=== PATIENT | male | born 1940 ===

== ENCOUNTER 2017-11-08 12:04 | Inpatient (IN) | payer MEDICARE, MEDICAID ==
--- NOTE | 2017-11-08 13:10 | C.PDOC ---
History Of Present Illness 77 year old male with a history of hypertension, diabetes, and end-stage renal disease presents to the emergency department status-post taking a fall and landing on his right knee and right side. Patient denies hitting his head or LOC. Patient reports he uses a walker at home for frequent falls. He was assisted off of the ground by his son. Patient is unable to bear weight on his right leg, complaining of pain from his hip down to his knee. Patient's last dialysis was on Friday. - HPI Time Seen by Provider: 11/08/17 12:24 Chief Complaint (Nursing): Trauma History Per: Patient History/Exam Limitations: no limitations Onset/Duration Of Symptoms: Hrs Location Of Injury: Right: Hip, Knee, Leg Past Medical History Reviewed: Historical Data, Nursing Documentation, Vital Signs Vital Signs: Last Vital Signs Temp 98.2 F 11/09/17 07:05 Pulse 80 11/09/17 07:05 Resp 20 11/09/17 07:05 BP 155/68 H 11/09/17 07:05 Pulse Ox 98 11/09/17 10:44 - Medical History PMH: Anemia, Arthritis, Dementia, HTN Other PMH: ESRD Surgical History: No Surg Hx Family History: States: No Known Family Hx - Social History Hx Alcohol Use: No Hx Substance Use: No - Immunization History Hx Tetanus Toxoid Vaccination: No Hx Influenza Vaccination: No Hx Pneumococcal Vaccination: No Review Of Systems Musculoskeletal: Positive for: Leg Pain (right knee), Other (right hip pain) Physical Exam - Physical Exam Appears: Non-toxic, No Acute Distress Skin: No Rash Head: Atraumatic, Normacephalic Eye(s): bilateral: Normal Inspection, PERRL, EOMI Oral Mucosa: Moist Chest: No Tenderness Cardiovascular: Rhythm Regular, No Murmur Respiratory: Normal Breath Sounds (CTA bilaterally), No Rales, No Rhonchi, No Wheezing Gastrointestinal/Abdominal: Soft, No Tenderness Extremity: Tenderness (at right hip), No Swelling, Other (right lower extremity is forshortened and externally rotated. dialysis access port located at the left distal forearm. ) Extremity: Left: Normal ROM, Right: Limited ROM To Joint (due to pain) Pulses: Left Dorsalis Pedis: Normal, Right Dorsalis Pedis: Normal Neurological/Psych: Oriented x3, Normal Speech, Normal Cognition ED Course And Treatment - Laboratory Results Result Diagrams: 11/08/17 14:14 11/08/17 14:14 ECG: Interpreted By Me, Viewed By Me ECG Rhythm: Sinus Rhythm (66bpm), 1st Degree HB, ST/T Changes (T wave abnormality, consider lateral ischemia) ECG Interpretation: Abnormal Interpretation Of ECG: Sinus rhythm at 66bpm with 1st degree AV block. Left axis deviation. Anteroseptal infarct. T wave abnormalities, consider lateral ischemia. Abnormal EKG. O2 Sat by Pulse Oximetry: 98 (RA) Pulse Ox Interpretation: Normal - Other Rad CXR X-Ray: Viewed By Me, Read By Radiologist Interpretation: FINDINGS: LUNGS: Prominent interstitial markings are appreciate diffusely bilaterally most likely reflecting chronic interstitial pulmonary disease. Acute interstitial infiltrate is not completely excluded. Further clinical correlation is recommended. PLEURA: No pneumothorax or pleural fluid seen. CARDIOVASCULAR: Normal. OSSEOUS STRUCTURES: No significant abnormalities. VISUALIZED UPPER ABDOMEN: Normal. OTHER FINDINGS: None. IMPRESSION: Likely chronic interstitial pulmonary disease although an acute interstitial process is not completely excluded. XR Femur X-Ray: Viewed By Me, Read By Radiologist Interpretation: HISTORY: prox femur pain ds/p fall. COMPARISON: None. TECHNIQUE: AP and Lateral Radiographs of the right femur. FINDINGS: FEMUR: Proximal right femoral fracture is identified somewhat comminuted and intertrochanteric in location described greater detail in a separate right hip radiograph also performed 11/08/2017. Please see separate report. The distal femur are intact without fracture. SOFT TISSUES: Vascular calcifications noted. OTHER FINDINGS: None. IMPRESSION: Intertrochanteric fracture comminuted proximal right femur. XR Knee X-Ray: Viewed By Me, Read By Radiologist Interpretation: HISTORY: fall onto knee pain. COMPARISON: None. FINDINGS: BONES: No acute fracture or destructive bony lesion identified. JOINTS: Mild joint space narrowing at the medial femorotibial and patellofemoral compartments indicates chondromalacia and degenerative joint change. No significant osteophyte development or cortical sclerosis however. JOINT EFFUSION: None. OTHER FINDINGS: None. IMPRESSION: Limited degenerative joint disease. No acute fracture or dislocation identified. Extensive vascular calcifications are identified in the posterior knee and thigh soft tissues as well as the medial calf. XR Hip/Pelvis X-Ray: Viewed By Me, Read By Radiologist Interpretation: HISTORY: s/p fall, foreshortened and rotated leg. COMPARISON: None. FINDINGS: BONES: Intertrochanteric fracture of the proximal right femur is appreciated with varus angulation of the fracture site. No dislocation apparent. The pelvic ring appears intact nevertheless although diffuse osteopenia suggests osteoporosis not only at the right hip but also throughout the pelvic ring. degenerative changes are moderate to severe at the bilateral sacroiliac and hip joints. Vascular calcifications are quite extensive at the region of the iliofemoral distribution up to the visualize mid thigh regions bilaterally. Pubic symphysis is intact. JOINTS: As above. SOFT TISSUES: As above. OTHER FINDINGS: None. IMPRESSION: Intertrochanteric fracture right femur with varus angulation. No dislocation. No fracture of the pelvic ring. Diffuse osteopenia suggests osteoporosis. Progress Note: Plan: XR Knee 3 Views. Tylenol 650mg PO. XR Femur 2 Views. XR Hip 2 Views Medical Decision Making Medical Decision Making: discussed with Dr London Fox, will admit to his service Disposition Discussed With Dr.: Christy Fox Doctor Will See Patient In The: Hospital - Disposition Disposition: HOSPITALIZED Disposition Time: 14:15 Condition: STABLE - Clinical Impression Clinical Impression: Hip fracture, right, Frequent falls, ESRD (end stage renal disease) on dialysis - PA / [employer] / Resident Statement MD/DO has reviewed & agrees with the documentation as recorded. - Scribe Statement The provider has reviewed the documentation as recorded by the Scribe (Nicolás Nguyen) All medical record entries made by the Scribe were at my direction and personally dictated by me. I have reviewed the chart and agree that the record accurately reflects my personal performance of the history, physical exam, medical decision making, and the department course for this patient. I have also personally directed, reviewed, and agree with the discharge instructions and disposition.
[2017-11-08 14:23] LABS: BASO # 0.1 K/uL (0.0-0.2); BASO % 0.9 % (0.0-2.0); EOS # 0.3 K/uL (0.0-0.7); EOS % 2.1 % (0.0-4.0); HEMOGLOBIN 12.3 g/dL (12.0-18.0); LYMPH # 2.9 K/uL (1.0-4.3); LYMPH % 24.2 % (20.0-40.0); MEAN CELL VOLUME 94.5 fL (80.0-94.0); MEAN CORPUSCULAR HEMOGLOBIN 31.9 pg (27.0-31.0); MEAN CORPUSCULAR HGB CONC 33.7 g/dL (33.0-37.0); MEAN PLATELET VOLUME 7.8 fL (7.2-11.7); MONO # 0.7 K/uL (0.0-0.8); MONO % 6.2 % (0.0-10.0); NEUT # 7.9 K/uL (1.8-7.0); NEUT % 66.6 % (50.0-75.0); RBC 3.85 Mil/uL (4.40-5.90); RED CELL DISTRIBUTION WIDTH 16.4 % (11.5-14.5); WHITE BLOOD COUNT 11.9 K/uL (4.8-10.8)
[2017-11-08 14:34] LABS: INR 1.1; PROTHROMBIN TIME 11.8 SECONDS (9.7-12.2)
[2017-11-08 14:41] LABS: ALB/GLOB RATIO 0.9 (1.0-2.1); ALBUMIN 3.6 g/dL (3.5-5.0); CALCIUM 8.7 mg/dl (8.6-10.4)
[2017-11-08] MEDS ORDERED: Oxycodone/Acetaminophen 5/325 mg Tab PO STA ×2 (15:35→15:37)
[2017-11-08] MEDS ORDERED: Oxycodone/Acetaminophen 5/325 mg Tab ONE (15:39)
--- NOTE | 2017-11-08 15:49 | CP.PCM.HP ---
Past Patient History - Past Social History Smoking Status: Never Smoked - CARDIAC Hx Hypertension: Yes - PULMONARY Hx Respiratory Disorders: No - NEUROLOGICAL Hx Dementia: Yes - RENAL Hx Dialysis: Yes Type of Dialysis Access: left fistual Date of Last Dialysis Treatment: 11/07/17 - ENDOCRINE/METABOLIC Hx Diabetes Mellitus Type 1: Yes - HEMATOLOGICAL/ONCOLOGICAL Hx Anemia: Yes - MUSCULOSKELETAL/RHEUMATOLOGICAL Hx Arthritis: Yes - PSYCHIATRIC Hx Substance Use: No - SURGICAL HISTORY Hx Surgeries: Yes Hx Cardiac Catheterization: Yes (2004) - ANESTHESIA Hx Anesthesia: Yes Hx Anesthesia Reactions: No Hx Malignant Hyperthermia: No Meds Allergies/Adverse Reactions: Allergies Allergy/AdvReac Type Severity Reaction Status Date / Time No Known Allergies Allergy Unverified 11/08/17 12:24 Physical Exam - Constitutional Appears: Well - Head Exam Head Exam: ATRAUMATIC, NORMAL INSPECTION, NORMOCEPHALIC - Eye Exam Eye Exam: EOMI, Normal appearance, PERRL Pupil Exam: NORMAL ACCOMODATION, PERRL - ENT Exam ENT Exam: Mucous Membranes Moist, Normal Exam - Neck Exam Neck exam: Positive for: Normal Inspection - Respiratory Exam Respiratory Exam: Decreased Breath Sounds - Cardiovascular Exam Cardiovascular Exam: REGULAR RHYTHM, +S1, +S2 - GI/Abdominal Exam GI & Abdominal Exam: Diminished Bowel Sounds, Soft - Rectal Exam Rectal Exam: Deferred Results - Vital Signs Recent Vital Signs: Last Vital Signs Temp 98 F 11/08/17 12:17 Pulse 78 11/08/17 12:17 Resp 18 11/08/17 12:17 BP 114/50 L 11/08/17 12:17 Pulse Ox 98 11/08/17 14:24 - Labs Result Diagrams: 11/08/17 14:14 11/08/17 14:14 Labs: Laboratory Results - last 24 hr 11/08/17 11/08/17 11/08/17 12:17 14:14 14:14 WBC 11.9 H RBC 3.85 L Hgb 12.3 Hct 36.4 MCV 94.5 H MCH 31.9 H MCHC 33.7 RDW 16.4 H Plt Count 228 MPV 7.8 Neut % (Auto) 66.6 Lymph % (Auto) 24.2 [place] % (Auto) 6.2 Eos % (Auto) 2.1 Baso % (Auto) 0.9 Neut # (Auto) 7.9 H Lymph # (Auto) 2.9 [place] # (Auto) 0.7 Eos # (Auto) 0.3 Baso # (Auto) 0.1 PT 11.8 INR 1.1 APTT 30 Sodium Potassium Chloride Carbon Dioxide Anion Gap BUN Creatinine Est GFR ( Amer) Est GFR (Non-Af Amer) POC Glucose (mg/dL) 228 H Random Glucose Calcium Total Bilirubin AST ALT Alkaline Phosphatase Total Protein Albumin Globulin Albumin/Globulin Ratio 11/08/17 14:14 WBC RBC Hgb Hct MCV MCH MCHC RDW Plt Count MPV Neut % (Auto) Lymph % (Auto) [place] % (Auto) Eos % (Auto) Baso % (Auto) Neut # (Auto) Lymph # (Auto) [place] # (Auto) Eos # (Auto) Baso # (Auto) PT INR APTT Sodium 141 Potassium 3.9 Chloride 95 L Carbon Dioxide 32 H Anion Gap 18 BUN 30 H Creatinine 3.1 H Est GFR ( Amer) 24 Est GFR (Non-Af Amer) 20 POC Glucose (mg/dL) Random Glucose 196 H Calcium 8.7 Total Bilirubin 0.6 AST 21 ALT 13 L Alkaline Phosphatase 106 Total Protein 7.8 Albumin 3.6 Globulin 4.2 H Albumin/Globulin Ratio 0.9 L
--- NOTE | 2017-11-08 17:12 | RAD ---
PROCEDURE: Right Hip with Pelvis Radiographs. HISTORY: s/p fall, foreshortened and rotated leg COMPARISON: None. FINDINGS: BONES: Intertrochanteric fracture of the proximal right femur is appreciated with varus angulation of the fracture site. No dislocation apparent. The pelvic ring appears intact nevertheless although diffuse osteopenia suggests osteoporosis not only at the right hip but also throughout the pelvic ring. degenerative changes are moderate to severe at the bilateral sacroiliac and hip joints. Vascular calcifications are quite extensive at the region of the iliofemoral distribution up to the visualize mid thigh regions bilaterally. Pubic symphysis is intact. JOINTS: As above. SOFT TISSUES: As above. OTHER FINDINGS: None. IMPRESSION: Intertrochanteric fracture right femur with varus angulation. No dislocation. No fracture of the pelvic ring. Diffuse osteopenia suggests osteoporosis.
--- NOTE | 2017-11-08 17:18 | RAD ---
PROCEDURE: Right Knee Radiographs. HISTORY: fall onto knee pain COMPARISON: None. FINDINGS: BONES: No acute fracture or destructive bony lesion identified. JOINTS: Mild joint space narrowing at the medial femorotibial and patellofemoral compartments indicates chondromalacia and degenerative joint change. No significant osteophyte development or cortical sclerosis however. JOINT EFFUSION: None. OTHER FINDINGS: None. IMPRESSION: Limited degenerative joint disease. No acute fracture or dislocation identified. Extensive vascular calcifications are identified in the posterior knee and thigh soft tissues as well as the medial calf.
--- NOTE | 2017-11-08 17:20 | RAD ---
PROCEDURE: Right Femur Radiographs. HISTORY: prox femur pain ds/p fall COMPARISON: None. TECHNIQUE: AP and Lateral Radiographs of the right femur. FINDINGS: FEMUR: Proximal right femoral fracture is identified somewhat comminuted and intertrochanteric in location described greater detail in a separate right hip radiograph also performed 11/08/2017. Please see separate report. The distal femur are intact without fracture. SOFT TISSUES: Vascular calcifications noted. OTHER FINDINGS: None. IMPRESSION: Intertrochanteric fracture comminuted proximal right femur.
--- NOTE | 2017-11-08 17:23 | RAD ---
PROCEDURE: CHEST RADIOGRAPH, 1 VIEW HISTORY: FALL RT HIP COMPARISON: None available. FINDINGS: LUNGS: Prominent interstitial markings are appreciate diffusely bilaterally most likely reflecting chronic interstitial pulmonary disease. Acute interstitial infiltrate is not completely excluded. Further clinical correlation is recommended. PLEURA: No pneumothorax or pleural fluid seen. CARDIOVASCULAR: Normal. OSSEOUS STRUCTURES: No significant abnormalities. VISUALIZED UPPER ABDOMEN: Normal. OTHER FINDINGS: None. IMPRESSION: Likely chronic interstitial pulmonary disease although an acute interstitial process is not completely excluded.
[2017-11-08] MEDS: Morphine 4 MG/ML VIAL IVP PRN (21:30)
[2017-11-08] MEDS: (Lantus) Insulin Glargine, Recombinant SC SCH (22:07)
[2017-11-08] MEDS: (Novolog) Insulin Aspart, Recombinant 100 u/ml 10 ml vial SC SCH (22:08)
[2017-11-09] MEDS ORDERED: (Novolog) Insulin Aspart, Recombinant 100 u/ml 10 ml vial SC STA (00:28)
[2017-11-09] MEDS: (Novolog) Insulin Aspart, Recombinant 100 u/ml 10 ml vial SC SCH ×5 (08:00→21:29)
[2017-11-09] MEDS: Morphine 4 MG/ML VIAL IVP PRN ×2 (08:53→15:50)
[2017-11-09] MEDS ORDERED: Metoprolol Succinate 200 mg XL Tab PO SCH (10:00)
--- NOTE | 2017-11-09 10:00 | CP.PCM.CON ---
History of Present Illness - History of Present Illness History of Present Illness: I was asked to see patient by Dr Fox. Patient is a 77 year old male with PMH HTN, CAD, chronic renal insufficiency, DM who presents with fall. Patient states he tripped and hurt his leg. He was found to have a hip fracture. patient denies chest pain or syncope. Review of Systems - Constitutional Constitutional: absent: As Per HPI, Anorexia, Chills, Daytime Sleepiness, Excessive Sweating, Fatigue, Fever, Frequent Falls, Headache, Increased Appetite , Lethargy, Malaise, Night Sweats, Snoring, Sleep Apnea, Weight Gain, Weight Loss, Weakness, Other - EENT Eyes: absent: As Per HPI, Blind Spots, Blurred Vision, Change in Vision, Decreased Night Vision, Diplopia, Discharge, Dry Eye, Exophthalmos, Floaters, Irritation, Itchy Eyes, Loss of Peripheral Vision, Pain, Photophobia, Requires Corrective Lenses, Sees Flashes, Spots in Vision, Tunnel Vision, Other Visual Disturbances, Loss of Vision, Other Ears: absent: As Per HPI, Decreased Hearing, Ear Discharge, Ear Pain, Tinnitus, Abnormal Hearing, Disequilibrium, Dizziness, Other Nose/Mouth/Throat: absent: As Per HPI, Epistaxis, Nasal Congestion, Nasal Discharge, Nasal Obstruction, Nasal Trauma, Nose Pain, Post Nasal Drip, Sinus Pain, Sinus Pressure, Bleeding Gums, Change in Voice, Dental Pain, Dry Mouth, Dysphagia, Halitosis, Hoarsness, Lip Swelling, Mouth Lesions, Mouth Pain, Odynophagia, Sore Throat, Throat Swelling, Tongue Swelling, Facial Pain, Neck Pain, Neck Mass, Other - Cardiovascular Cardiovascular: absent: As Per HPI, Acrocyanosis, Chest Pain, Chest Pain at Rest , Chest Pain with Activity, Claudication, Diaphoresis, Dyspnea, Dyspnea on Exertion, Edema, Irregular Heart Rhythm, Pain Radiating to Arm/Neck/Jaw, Leg Edema, Leg Ulcers, Lightheadedness, Orthopnea, Palpitations, Paroxysmal Nocturnal Dyspnea, Pedal Edema, Radiating Pain, Rapid Heart Rate, Slow Heart Rate, Syncope, Other - Respiratory Respiratory: absent: As Per HPI, Cough, Dyspnea, Hemoptysis, Dyspnea on Exertion , Wheezing, Snoring, Stridor, Pain on Inspiration, Chest Congestion, Excessive Mucous Production, Change in Mucous Color, Pain with Coughing, Other - Gastrointestinal Gastrointestinal: absent: As Per HPI, Abdominal Pain, Belching, Bloating, Change in Bowel Habits, Change in Stool Character, Coffee Ground Emesis, Constipation, Cramping, Diarrhea, Dyspepsia, Dysphagia, Early Satiety, Excessive Flatus, Fecal Incontinence, Heartburn, Hematemesis, Hematochezia, Loose Stools, Melena, Nausea, Odynophagia, Temesmus, Vomiting, Other - Genitourinary Genitourinary: absent: As Per HPI, Change in Urinary Stream, Difficulty Urinating, Dysuria, Flank Pain, Hematuria, Pyuria, Nocturia, Urinary Incontinence, Urinary Frequency, Urinary Hesitance, Urinary Urgency, Voiding Freq/Small Amts, Freq UTI, Hx Renal/Bladder Calculi, Hx /Renal Surgery, Bladder Distension, Other - Musculoskeletal Musculoskeletal: absent: As Per HPI, Abnormal Gait, Arthralgias, Atrophy, Back Pain, Deformity, Joint Swelling, Limited Range of Motion, Loss of Height, Muscle Cramps, Muscle Weakness, Myalgias, Neck Pain, Numbness, Radiating Pain into Limb, Stiffness, Tingling, Other - Integumentary Integumentary: absent: As Per HPI, Acne, Alopecia, Bleeding Lesions, Change in Hair, Change in Nails, Change in Pigmentation, Changing Lesions, Dry Skin, Erythema, Furuncle, Hirsutism, Lesions, New Lesions, Non-Healing Lesions, Photosensitivity, Pruritus, Rash, Skin Pain, Skin Ulcer, Sores, Striae, Swelling , Unusual Bruising, Wounds, Jaundice, Other - Neurological Neurological: absent: As Per HPI, Abnormal Gait, Abnormal Hearing, Abnormal Movements, Abnormal Speech, Behavioral Changes, Burning Sensations, Confusion, Convulsions, Disequilibrium, Dizziness, Numbness, Focal Weakness, Frequent Falls , Headaches, Lack of Coordination, Loss of Vision, Memory Loss, Paresthesias, Radicular Pain, Restless Legs, Sensory Deficit, Syncope, Tingling, Tremor, Vertigo, Weakness, Other Visual Disturbances, Other - Psychiatric Psychiatric: absent: As Per HPI, Abnormal Sleep Pattern, Anhedonia, Anxiety, Auditory Hallucinations, Behavioral Changes, Change in Appetite, Change in Libido, Confusion, Depression, Difficulty Concentrating, Hallucinations, Homicidal Ideation, Hopelessness, Irritability, Memory Loss, Mood Swings, Panic Attacks, Paranoia, Suicidal Ideation, Visual Hallucinations, Tactile Hallucinations, Other - Endocrine Endocrine: absent: As Per HPI, Change in Body Appearance, Change in Libido, Cold Intolorance, Deepening of Voice, Excessive Sweating, Fatigue, Flushing, Heat Intolorance, Increase in Ring/Shoe/Hat Size, Palpitations, Polydipsia, Polyphagia, Polyuria, Other - Hematologic/Lymphatic Hematologic: absent: As Per HPI, Easy Bleeding, Easy Bruising, Lymphadenopathy, Other Past Patient History - Past Medical History & Family History Past Medical History?: Yes - Past Social History Smoking Status: Never Smoked - CARDIAC Hx Hypertension: Yes - PULMONARY Hx Respiratory Disorders: No - NEUROLOGICAL Hx Dementia: Yes - RENAL Hx Dialysis: Yes Type of Dialysis Access: left fistual Date of Last Dialysis Treatment: 11/07/17 - ENDOCRINE/METABOLIC Hx Diabetes Mellitus Type 1: Yes - HEMATOLOGICAL/ONCOLOGICAL Hx Anemia: Yes - MUSCULOSKELETAL/RHEUMATOLOGICAL Hx Arthritis: Yes Hx Falls: No - GASTROINTESTINAL Hx Gastrointestinal Disorders: No - GENITOURINARY/GYNECOLOGICAL Hx Genitourinary Disorders: No - PSYCHIATRIC Hx Substance Use: No - SURGICAL HISTORY Hx Surgeries: Yes Hx Cardiac Catheterization: Yes (2004) - ANESTHESIA Hx Anesthesia: Yes Hx Anesthesia Reactions: No Hx Malignant Hyperthermia: No Meds Allergies/Adverse Reactions: Allergies Allergy/AdvReac Type Severity Reaction Status Date / Time No Known Allergies Allergy Unverified 11/08/17 12:24 - Medications Medications: Current Medications Divalproex Sodium (Depakote Sprinkles) 125 mg PO DAILY [facility] Donepezil HCl (Aricept) 5 mg PO HS [facility] Last Admin: 11/08/17 21:31 Dose: 5 mg Heparin Sodium (Porcine) (Heparin) 5,000 units SC Q12 [facility] Last Admin: 11/08/17 21:30 Dose: 5,000 units Insulin Aspart (Novolog) 0 unit SC ACHS [facility] PRN Reason: Protocol Last Admin: 11/09/17 08:42 Dose: Not Given Insulin Glargine (Lantus) 8 unit SC HS [facility] Last Admin: 11/08/17 22:07 Dose: 8 unit Memantine (Namenda) 5 mg PO BID [facility] Last Admin: 11/08/17 18:44 Dose: 5 mg Metoprolol Succinate (Toprol Xl) 200 mg PO DAILY [facility] Midodrine (Proamatine) 5 mg PO TID [facility] Last Admin: 11/08/17 18:44 Dose: 5 mg Mirtazapine (Remeron) 15 mg PO HS [facility] Last Admin: 11/08/17 22:44 Dose: 15 mg Morphine Sulfate (Morphine) 2 mg IVP Q6 PRN PRN Reason: Pain, moderate (4-7) Last Admin: 11/09/17 08:53 Dose: 2 mg Pantoprazole Sodium (Protonix Ec Tab) 40 mg PO DAILY [facility] Rosuvastatin Calcium (Crestor) 5 mg PO HS [facility] Last Admin: 11/08/17 21:31 Dose: 5 mg Physical Exam - Constitutional Appears: Non-toxic - Head Exam Head Exam: NORMAL INSPECTION - Eye Exam Eye Exam: Normal appearance - ENT Exam ENT Exam: Mucous Membranes Moist - Neck Exam Neck exam: Positive for: Normal Inspection - Respiratory Exam Respiratory Exam: NORMAL BREATHING PATTERN - Cardiovascular Exam Cardiovascular Exam: REGULAR RHYTHM - GI/Abdominal Exam GI & Abdominal Exam: Normal Bowel Sounds - Rectal Exam Rectal Exam: Deferred - Extremities Exam Extremities exam: Positive for: pedal pulses present. Negative for: pedal edema - Back Exam Back exam: NORMAL INSPECTION - Neurological Exam Neurological exam: Alert, Oriented x3 - Psychiatric Exam Psychiatric exam: Normal Affect - Skin Skin Exam: Normal Color Results - Vital Signs Recent Vital Signs: Last Vital Signs Temp 98.2 F 11/09/17 07:05 Pulse 80 11/09/17 07:05 Resp 20 11/09/17 07:05 BP 155/68 H 11/09/17 07:05 Pulse Ox 97 11/09/17 07:05 - Labs Result Diagrams: 11/08/17 14:14 11/08/17 14:14 Labs: Laboratory Results - last 24 hr 11/08/17 11/08/17 11/08/17 12:17 14:14 14:14 WBC 11.9 H RBC 3.85 L Hgb 12.3 Hct 36.4 MCV 94.5 H MCH 31.9 H MCHC 33.7 RDW 16.4 H Plt Count 228 MPV 7.8 Neut % (Auto) 66.6 Lymph % (Auto) 24.2 [place] % (Auto) 6.2 Eos % (Auto) 2.1 Baso % (Auto) 0.9 Neut # (Auto) 7.9 H Lymph # (Auto) 2.9 [place] # (Auto) 0.7 Eos # (Auto) 0.3 Baso # (Auto) 0.1 PT 11.8 INR 1.1 APTT 30 Sodium Potassium Chloride Carbon Dioxide Anion Gap BUN Creatinine Est GFR ( Amer) Est GFR (Non-Af Amer) POC Glucose (mg/dL) 228 H Random Glucose Calcium Total Bilirubin AST ALT Alkaline Phosphatase Total Protein Albumin Globulin Albumin/Globulin Ratio 11/08/17 11/08/17 11/08/17 14:14 18:01 21:41 WBC RBC Hgb Hct MCV MCH MCHC RDW Plt Count MPV Neut % (Auto) Lymph % (Auto) [place] % (Auto) Eos % (Auto) Baso % (Auto) Neut # (Auto) Lymph # (Auto) [place] # (Auto) Eos # (Auto) Baso # (Auto) PT INR APTT Sodium 141 Potassium 3.9 Chloride 95 L Carbon Dioxide 32 H Anion Gap 18 BUN 30 H Creatinine 3.1 H Est GFR ( Amer) 24 Est GFR (Non-Af Amer) 20 POC Glucose (mg/dL) 351 H > 500 H* Random Glucose 196 H Calcium 8.7 Total Bilirubin 0.6 AST 21 ALT 13 L Alkaline Phosphatase 106 Total Protein 7.8 Albumin 3.6 Globulin 4.2 H Albumin/Globulin Ratio 0.9 L 11/09/17 11/09/17 11/09/17 00:19 02:52 06:28 WBC RBC Hgb Hct MCV MCH MCHC RDW Plt Count MPV Neut % (Auto) Lymph % (Auto) [place] % (Auto) Eos % (Auto) Baso % (Auto) Neut # (Auto) Lymph # (Auto) [place] # (Auto) Eos # (Auto) Baso # (Auto) PT INR APTT Sodium Potassium Chloride Carbon Dioxide Anion Gap BUN Creatinine Est GFR ( Amer) Est GFR (Non-Af Amer) POC Glucose (mg/dL) > 500 H* 321 H 227 H Random Glucose Calcium Total Bilirubin AST ALT Alkaline Phosphatase Total Protein Albumin Globulin Albumin/Globulin Ratio - EKG Data EKG shows normal: Sinus rhythm - EKG Data EKG Specific Queries Q Waves: V1, V2, V3 Assessment & Plan (1) HTN (hypertension) Assessment and Plan: on betablocker. will add ARB Status: Acute (2) CAD (coronary artery disease) Assessment and Plan: previous myocardial infarction on EKG. needs echocardiogram to evaluate LV function and regional wall motion abnormalities prior to surgery Status: Acute (3) Hip fracture, right Assessment and Plan: will need echocardiogram prior to surgery Status: Acute
[2017-11-09] MEDS: Metoprolol Succinate 100 mg XL Tab PO SCH (11:23)
[2017-11-09] MEDS: Pantoprazole 40 mg EC Tab PO SCH (11:23)
[2017-11-09] MEDS: Divalproex 125 mg Sprinkle Capsule PO SCH (11:24)
[2017-11-09] MEDS ORDERED: Morphine 4 MG/ML VIAL IVP ONE (13:45)
--- NOTE | 2017-11-09 18:12 | CP.PCM.PN ---
Subjective - Date & Time of Evaluation Date of Evaluation: 11/09/17 Time of Evaluation: 12:00 - Subjective Subjective: clinically same Objective - Vital Signs/Intake and Output Vital Signs (last 24 hours): Temp Pulse Resp BP Pulse Ox 98.4 F 65 20 137/66 96 11/09/17 15:00 11/09/17 15:00 11/09/17 15:00 11/09/17 15:00 11/09/17 15:00 Intake and Output: 11/09/17 11/09/17 06:59 18:59 Output Total 100 Balance -100 - Medications Medications: Current Medications Divalproex Sodium (Depakote Sprinkles) 125 mg PO DAILY [facility] Last Admin: 11/09/17 11:24 Dose: Not Given Donepezil HCl (Aricept) 5 mg PO [facility] Last Admin: 11/08/17 21:31 Dose: 5 mg Heparin Sodium (Porcine) (Heparin) 5,000 units SC Q12 [facility] Last Admin: 11/09/17 11:24 Dose: 5,000 units Insulin Aspart (Novolog) 0 unit SC [facility] PRN Reason: Protocol Last Admin: 11/09/17 15:10 Dose: 5 unit Insulin Glargine (Lantus) 8 unit SC [facility] Last Admin: 11/08/17 22:07 Dose: 8 unit Memantine (Namenda) 5 mg PO BID [facility] Last Admin: 11/09/17 11:23 Dose: 5 mg Metoprolol Succinate (Toprol Xl) 200 mg PO DAILY [facility] Last Admin: 11/09/17 11:23 Dose: 200 mg Mirtazapine (Remeron) 15 mg PO [facility] Last Admin: 11/08/17 22:44 Dose: 15 mg Morphine Sulfate (Morphine) 2 mg IVP Q6 PRN PRN Reason: Pain, moderate (4-7) Last Admin: 11/09/17 15:50 Dose: 2 mg Pantoprazole Sodium (Protonix Ec Tab) 40 mg PO DAILY [facility] Last Admin: 11/09/17 11:23 Dose: 40 mg Rosuvastatin Calcium (Crestor) 5 mg PO [facility] Last Admin: 11/08/17 21:31 Dose: 5 mg - Labs Labs: 11/08/17 14:14 11/08/17 14:14 PT 11.8 SECONDS (9.7-12.2) 11/08/17 14:14 INR 1.1 11/08/17 14:14 APTT 30 SECONDS (21-34) 11/08/17 14:14 - Constitutional Appears: Well - Head Exam Head Exam: ATRAUMATIC, NORMAL INSPECTION, NORMOCEPHALIC - Eye Exam Eye Exam: EOMI, Normal appearance, PERRL Pupil Exam: NORMAL ACCOMODATION, PERRL - ENT Exam ENT Exam: Mucous Membranes Moist, Normal Exam - Neck Exam Neck Exam: Full ROM, Normal Inspection. absent: Lymphadenopathy - Respiratory Exam Respiratory Exam: Decreased Breath Sounds - Cardiovascular Exam Cardiovascular Exam: REGULAR RHYTHM, +S1, +S2 - GI/Abdominal Exam GI & Abdominal Exam: Soft, Diminished Bowel Sounds - Rectal Exam Rectal Exam: Deferred
[2017-11-09] MEDS: (Lantus) Insulin Glargine, Recombinant SC SCH (21:39)
[2017-11-10] MEDS: (Novolog) Insulin Aspart, Recombinant 100 u/ml 10 ml vial SC SCH ×4 (08:48→21:35)
[2017-11-10] MEDS: Metoprolol Succinate 100 mg XL Tab PO SCH (10:17)
[2017-11-10] MEDS: Divalproex 125 mg Sprinkle Capsule PO SCH (10:18)
[2017-11-10] MEDS: Pantoprazole 40 mg EC Tab PO SCH (10:18)
[2017-11-10] MEDS: (Novolog) Insulin Aspart, Recombinant 100 u/ml 10 ml vial SC ONE ×2 (13:28→13:36)
--- NOTE | 2017-11-10 14:27 | CP.PCM.PN ---
Subjective - Date & Time of Evaluation Date of Evaluation: 11/10/17 Time of Evaluation: 12:20 - Subjective Subjective: clinically same Objective - Vital Signs/Intake and Output Vital Signs (last 24 hours): Temp Pulse Resp BP Pulse Ox 97.9 F 88 20 169/72 H 97 11/10/17 08:39 11/10/17 08:39 11/10/17 08:39 11/10/17 08:39 11/10/17 08:39 Intake and Output: 11/10/17 11/10/17 06:59 18:59 Output Total 200 Balance -200 - Medications Medications: Current Medications Divalproex Sodium (Depakote Sprinkles) 125 mg PO DAILY [facility] Last Admin: 11/10/17 10:18 Dose: 125 mg Donepezil HCl (Aricept) 5 mg PO [facility] Last Admin: 11/09/17 21:39 Dose: 5 mg Heparin Sodium (Porcine) (Heparin) 5,000 units SC Q12 [facility] Last Admin: 11/10/17 10:14 Dose: 5,000 units Insulin Aspart (Novolog) 0 unit SC [facility] PRN Reason: Protocol Last Admin: 11/10/17 13:30 Dose: Not Given Insulin Glargine (Lantus) 8 unit SC [facility] Last Admin: 11/09/17 21:39 Dose: 8 unit Memantine (Namenda) 5 mg PO BID [facility] Last Admin: 11/10/17 10:18 Dose: 5 mg Metoprolol Succinate (Toprol Xl) 200 mg PO DAILY [facility] Last Admin: 11/10/17 10:17 Dose: 200 mg Mirtazapine (Remeron) 15 mg PO [facility] Last Admin: 11/09/17 21:39 Dose: 15 mg Morphine Sulfate (Morphine) 2 mg IVP Q6 PRN PRN Reason: Pain, moderate (4-7) Last Admin: 11/09/17 15:50 Dose: 2 mg Pantoprazole Sodium (Protonix Ec Tab) 40 mg PO DAILY [facility] Last Admin: 11/10/17 10:18 Dose: 40 mg Rosuvastatin Calcium (Crestor) 5 mg PO [facility] Last Admin: 11/09/17 21:39 Dose: 5 mg - Labs Labs: 11/08/17 14:14 11/08/17 14:14 PT 11.8 SECONDS (9.7-12.2) 11/08/17 14:14 INR 1.1 11/08/17 14:14 APTT 30 SECONDS (21-34) 11/08/17 14:14 - Constitutional Appears: Well - Head Exam Head Exam: ATRAUMATIC, NORMAL INSPECTION, NORMOCEPHALIC - Eye Exam Eye Exam: EOMI, Normal appearance, PERRL Pupil Exam: NORMAL ACCOMODATION, PERRL - ENT Exam ENT Exam: Mucous Membranes Moist, Normal Exam - Neck Exam Neck Exam: Full ROM, Normal Inspection. absent: Lymphadenopathy - Respiratory Exam Respiratory Exam: Decreased Breath Sounds - Cardiovascular Exam Cardiovascular Exam: REGULAR RHYTHM, +S1, +S2 - GI/Abdominal Exam GI & Abdominal Exam: Soft, Diminished Bowel Sounds - Rectal Exam Rectal Exam: Deferred
[2017-11-10] MEDS: Morphine 4 MG/ML VIAL IVP PRN (18:28)
[2017-11-10] MEDS: (Lantus) Insulin Glargine, Recombinant SC SCH (22:05)
[2017-11-11] MEDS: Oxycodone/Acetaminophen 5/325 mg Tab PO PRN ×2 (09:00→21:58)
[2017-11-11] MEDS: (Novolog) Insulin Aspart, Recombinant 100 u/ml 10 ml vial SC SCH ×4 (09:01→21:59)
[2017-11-11 10:57] LABS: MEAN CELL VOLUME 94.5 fL (80.0-94.0); MEAN CORPUSCULAR HEMOGLOBIN 31.6 pg (27.0-31.0); MEAN CORPUSCULAR HGB CONC 33.5 g/dL (33.0-37.0); MEAN PLATELET VOLUME 7.9 fL (7.2-11.7); RBC 3.04 Mil/uL (4.40-5.90); RED CELL DISTRIBUTION WIDTH 16.3 % (11.5-14.5); WHITE BLOOD COUNT 9.2 K/uL (4.8-10.8)
[2017-11-11 11:09] LABS: HEMOGLOBIN 9.6 g/dL (12.0-18.0)
[2017-11-11] MEDS: Metoprolol Succinate 100 mg XL Tab PO SCH (11:12)
[2017-11-11] MEDS: Divalproex 125 mg Sprinkle Capsule PO SCH (11:12)
[2017-11-11] MEDS: Pantoprazole 40 mg EC Tab PO SCH (11:12)
[2017-11-11 11:18] LABS: CALCIUM 8.5 mg/dl (8.6-10.4)
[2017-11-11] MEDS: Multivitamin Vitamin B Complex (Nephro-Vite) Tab PO SCH ×2 (14:51→17:26)
--- NOTE | 2017-11-11 15:24 | CP.PCM.CON ---
<Clotilde King - Last Filed: 11/11/17 15:21> History of Present Illness - History of Present Illness History of Present Illness: 77M complains of right hip pain after fall. Ambulates with walker at home. Baseline dementia, sometimes clear. Patient sleeping but easily aroused. Family at bedside. Risks/benefits/alt explained to daughter who verbalizes understanding and agrees to hip surgery pending cardiology eval. Review of Systems - Review of Systems Systems not reviewed;Unavailable: Dementia Past Patient History - Past Medical History & Family History Past Medical History?: Yes Past Family History: Reviewed and not pertinent - Past Social History Smoking Status: Never Smoked - CARDIAC Hx Cardiac Disorders: Yes Hx Hypertension: Yes - PULMONARY Hx Respiratory Disorders: No - NEUROLOGICAL Hx Dementia: Yes - RENAL Hx Dialysis: Yes Type of Dialysis Access: left fistual Date of Last Dialysis Treatment: 11/07/17 - ENDOCRINE/METABOLIC Hx Diabetes Mellitus Type 1: Yes - HEMATOLOGICAL/ONCOLOGICAL Hx Anemia: Yes - MUSCULOSKELETAL/RHEUMATOLOGICAL Hx Arthritis: Yes - GASTROINTESTINAL Hx Gastrointestinal Disorders: No - GENITOURINARY/GYNECOLOGICAL Hx Genitourinary Disorders: No - PSYCHIATRIC Hx Substance Use: No - SURGICAL HISTORY Hx Surgeries: Yes Hx Cardiac Catheterization: Yes (2004) - ANESTHESIA Hx Anesthesia: Yes Hx Anesthesia Reactions: No Hx Malignant Hyperthermia: No Meds Allergies/Adverse Reactions: Allergies Allergy/AdvReac Type Severity Reaction Status Date / Time No Known Allergies Allergy Unverified 11/08/17 12:24 - Medications Medications: Current Medications Divalproex Sodium (Depakote Sprinkles) 125 mg PO DAILY [facility] Last Admin: 11/11/17 11:12 Dose: 125 mg Donepezil HCl (Aricept) 5 mg PO [facility] Last Admin: 11/10/17 21:29 Dose: 5 mg Heparin Sodium (Porcine) (Heparin) 5,000 units SC Q12 [facility] Last Admin: 11/10/17 22:05 Dose: 5,000 units Insulin Aspart (Novolog) 0 unit SC ACHS [facility] PRN Reason: Protocol Last Admin: 11/11/17 13:46 Dose: 5 unit Insulin Glargine (Lantus) 8 unit SC HS [facility] Last Admin: 11/10/17 22:05 Dose: 8 unit Memantine (Namenda) 5 mg PO BID [facility] Last Admin: 11/11/17 11:12 Dose: 5 mg Metoprolol Succinate (Toprol Xl) 200 mg PO DAILY [facility] Last Admin: 11/11/17 11:12 Dose: 200 mg Mirtazapine (Remeron) 15 mg PO [facility] Last Admin: 11/10/17 21:29 Dose: 15 mg Morphine Sulfate (Morphine) 2 mg IVP Q6 PRN PRN Reason: Pain, moderate (4-7) Last Admin: 11/10/17 18:28 Dose: 2 mg Oxycodone/Acetaminophen (Percocet 5/325 Mg Tab) 1 tab PO Q4H PRN PRN Reason: Pain, severe (8-10) Stop: 11/14/17 08:31 Last Admin: 11/11/17 09:00 Dose: 1 tab Pantoprazole Sodium (Protonix Ec Tab) 40 mg PO DAILY [facility] Last Admin: 11/11/17 11:12 Dose: 40 mg Rosuvastatin Calcium (Crestor) 5 mg PO HS [facility] Last Admin: 11/10/17 21:29 Dose: 5 mg Vitamin B Complex/Vit C/Folic Acid (Nephro-Jerson) 1 tab PO TID [facility] Last Admin: 11/11/17 14:51 Dose: 1 tab Physical Exam - Constitutional Appears: Well, No Acute Distress (sleeping (recent percocet)) - Respiratory Exam Respiratory Exam: NORMAL BREATHING PATTERN - GI/Abdominal Exam Additional comments: +DP/PT pulses - Expanded Lower Extremities Exam Right Lower Leg Exam: tenderness (? cord palpable) Ankle exam: FULL ROM - Neurological Exam Additional comments: drowsy - Psychiatric Exam Psychiatric exam: Normal Affect - Skin Skin Exam: Dry, Intact, Normal Color, Warm Results - Vital Signs Recent Vital Signs: Last Vital Signs Temp 97.8 F 11/11/17 07:05 Pulse 75 11/11/17 07:05 Resp 20 11/11/17 07:05 BP 150/63 11/11/17 07:05 Pulse Ox 98 11/11/17 13:40 - Labs Result Diagrams: 11/11/17 10:51 11/11/17 10:51 Labs: Laboratory Results - last 24 hr 11/10/17 11/10/17 11/11/17 16:13 21:34 06:07 WBC RBC Hgb Hct MCV MCH MCHC RDW Plt Count MPV Sodium Potassium Chloride Carbon Dioxide Anion Gap BUN Creatinine Est GFR ( Amer) Est GFR (Non-Af Amer) POC Glucose (mg/dL) 302 H 289 H 351 H Random Glucose Calcium 25-OH Vitamin D Total Blood Type Antibody Screen 11/11/17 11/11/17 11/11/17 10:15 10:51 10:51 WBC 9.2 RBC 3.04 L Hgb 9.6 L D Hct 28.7 L MCV 94.5 H MCH 31.6 H MCHC 33.5 RDW 16.3 H Plt Count 180 MPV 7.9 Sodium 137 Potassium 4.9 Chloride 99 Carbon Dioxide 26 Anion Gap 16 BUN 35 H Creatinine 2.8 H Est GFR ( Amer) 27 Est GFR (Non-Af Amer) 22 POC Glucose (mg/dL) Random Glucose 443 H* D Calcium 8.5 L 25-OH Vitamin D Total Blood Type O POSITIVE Antibody Screen Negative 11/11/17 11/11/17 10:51 11:12 WBC RBC Hgb Hct MCV MCH MCHC RDW Plt Count MPV Sodium Potassium Chloride Carbon Dioxide Anion Gap BUN Creatinine Est GFR ( Amer) Est GFR (Non-Af Amer) POC Glucose (mg/dL) 397 H Random Glucose Calcium 25-OH Vitamin D Total 43.7 Blood Type Antibody Screen - Impressions Impression: Patient Name / ID : BRODY BRAVO / [id number] Exam Date : 11/08/2017 13:09:15 ( Approved ) Study Comment : Sex / Age : M / [id number] Creator : Ivan Jerez MD Dictator : Ivan Jerez MD Damper Maker : Jewel Gauger : Ivan Jerez MD Approver2 : Report Date : 11/08/2017 17:10:50 My Comment : PROCEDURE: Right Hip with Pelvis Radiographs. HISTORY: s/p fall, foreshortened and rotated leg COMPARISON: None. FINDINGS: BONES: Intertrochanteric fracture of the proximal right femur is appreciated with varus angulation of the fracture site. No dislocation apparent. The pelvic ring appears intact nevertheless although diffuse osteopenia suggests osteoporosis not only at the right hip but also throughout the pelvic ring. degenerative changes are moderate to severe at the bilateral sacroiliac and hip joints. Vascular calcifications are quite extensive at the region of the iliofemoral distribution up to the visualize mid thigh regions bilaterally. Pubic symphysis is intact. JOINTS: As above. SOFT TISSUES: As above. OTHER FINDINGS: None. IMPRESSION: Intertrochanteric fracture right femur with varus angulation. No dislocation. No fracture of the pelvic ring. Diffuse osteopenia suggests osteoporosis. Assessment & Plan (1) Closed intertrochanteric fracture of right hip Assessment and Plan: NPO p MN for OR tomorrow pending cardiology optimization/risk stratification, echo just completed T&C VTE proph, heparin now held doppers due to pain in right calf d/w Dr. Leon, agrees with above Status: Acute <Raf Mcnamara S - Last Filed: 11/12/17 17:31> Meds - Medications Medications: Current Medications Acetaminophen (Tylenol 325mg Tab) 650 mg PO Q8H [facility] Last Admin: 11/12/17 15:06 Dose: Not Given Divalproex Sodium (Depakote Sprinkles) 125 mg PO DAILY [facility] Last Admin: 11/12/17 15:04 Dose: Not Given Docusate Sodium (Colace) 100 mg PO BID [facility] Donepezil HCl (Aricept) 5 mg PO HS [facility] Last Admin: 11/11/17 21:58 Dose: 5 mg Heparin Sodium (Porcine) (Heparin) 5,000 units SC Q12 [facility] Last Admin: 11/10/17 22:05 Dose: 5,000 units Cefazolin Sodium/Dextrose (Ancef Iv 1 Gm Duplex) 1 gm in 50 mls @ 100 mls/hr IVPB Q8H [facility] PRN Reason: Protocol Stop: 11/13/17 00:29 Insulin Aspart (Novolog) 0 unit SC ACHS [facility] PRN Reason: Protocol Last Admin: 11/12/17 13:17 Dose: 3 unit Insulin Glargine (Lantus) 8 unit SC HS [facility] Last Admin: 11/11/17 21:00 Dose: Not Given Memantine (Namenda) 5 mg PO BID [facility] Last Admin: 05/30/18 15:04 Dose: Not Given Metoprolol Succinate (Toprol Xl) 200 mg PO DAILY [facility] Last Admin: 11/12/17 15:06 Dose: Not Given Mirtazapine (Remeron) 15 mg PO HS [facility] Last Admin: 11/11/17 21:57 Dose: 15 mg Morphine Sulfate (Morphine) 2 mg IVP Q6 PRN PRN Reason: Pain, moderate (4-7) Last Admin: 11/10/17 18:28 Dose: 2 mg Oxycodone HCl (Oxycodone Immediate Release Tab) 5 mg PO Q6 PRN PRN Reason: Pain, moderate (4-7) Pantoprazole Sodium (Protonix Ec Tab) 40 mg PO DAILY [facility] Last Admin: 11/12/17 15:05 Dose: Not Given Rosuvastatin Calcium (Crestor) 5 mg PO HS [facility] Last Admin: 11/11/17 21:57 Dose: 5 mg Tobramycin Sulfate (Tobrex 0.3% Ophth Soln) 2 drop OS Q6H [facility] Last Admin: 11/12/17 15:05 Dose: Not Given Vitamin B Complex/Vit C/Folic Acid (Nephro-Jerson) 1 tab PO TID [facility] Last Admin: 11/12/17 15:05 Dose: Not Given Results - Vital Signs Recent Vital Signs: Last Vital Signs Temp 96 F L 11/12/17 14:50 Pulse 85 11/12/17 14:50 Resp 20 11/12/17 14:50 BP 117/69 11/12/17 17:20 Pulse Ox 97 11/12/17 14:50 - Labs Result Diagrams: 11/12/17 06:17 11/12/17 06:17 Labs: Laboratory Results - last 24 hr 11/11/17 11/11/17 11/11/17 10:15 20:56 20:59 WBC RBC Hgb Hct MCV MCH MCHC RDW Plt Count MPV Sodium Potassium Chloride Carbon Dioxide Anion Gap BUN Creatinine Est GFR ( Amer) Est GFR (Non-Af Amer) POC Glucose (mg/dL) 464 H* 412 H* Random Glucose Calcium Blood Type O POSITIVE Antibody Screen Negative 11/12/17 11/12/17 11/12/17 02:03 06:17 06:17 WBC 11.2 H RBC 3.24 L Hgb 10.2 L Hct 30.6 L MCV 94.4 H MCH 31.3 H MCHC 33.2 RDW 16.3 H Plt Count 227 MPV 7.3 Sodium 136 Potassium 5.3 H Chloride 98 Carbon Dioxide 27 Anion Gap 16 BUN 47 H Creatinine 3.5 H Est GFR ( Amer) 21 Est GFR (Non-Af Amer) 17 POC Glucose (mg/dL) 363 H Random Glucose 326 H Calcium 8.6 Blood Type Antibody Screen 11/12/17 11/12/17 11/12/17 06:22 08:53 09:40 WBC RBC Hgb Hct MCV MCH MCHC RDW Plt Count MPV Sodium Potassium Chloride Carbon Dioxide Anion Gap BUN Creatinine Est GFR ( Amer) Est GFR (Non-Af Amer) POC Glucose (mg/dL) 349 H 338 H 367 H Random Glucose Calcium Blood Type Antibody Screen 11/12/17 11/12/17 11/12/17 10:30 12:27 15:54 WBC RBC Hgb Hct MCV MCH MCHC RDW Plt Count MPV Sodium Potassium Chloride Carbon Dioxide Anion Gap BUN Creatinine Est GFR ( Amer) Est GFR (Non-Af Amer) POC Glucose (mg/dL) 334 H 258 H 129 H Random Glucose Calcium Blood Type Antibody Screen Assessment & Plan - Assessment and Plan (Free Text) Assessment: Pt seen and examined. agree with LANDON-stock assessment and plan. I personally spent a long time with the family members explaining the surgical plan and R/B/A to surgery.
--- NOTE | 2017-11-11 15:29 | CP.PCM.PN ---
Subjective - Date & Time of Evaluation Date of Evaluation: 11/11/17 Time of Evaluation: 12:00 - Subjective Subjective: clinically same Objective - Vital Signs/Intake and Output Vital Signs (last 24 hours): Temp Pulse Resp BP Pulse Ox 97.8 F 75 20 150/63 98 11/11/17 07:05 11/11/17 07:05 11/11/17 07:05 11/11/17 07:05 11/11/17 13:40 - Medications Medications: Current Medications Divalproex Sodium (Depakote Sprinkles) 125 mg PO DAILY [facility] Last Admin: 11/11/17 11:12 Dose: 125 mg Donepezil HCl (Aricept) 5 mg PO [facility] Last Admin: 11/10/17 21:29 Dose: 5 mg Heparin Sodium (Porcine) (Heparin) 5,000 units SC Q12 [facility] Last Admin: 11/10/17 22:05 Dose: 5,000 units Insulin Aspart (Novolog) 0 unit SC ACHS [facility] PRN Reason: Protocol Last Admin: 11/11/17 13:46 Dose: 5 unit Insulin Glargine (Lantus) 8 unit SC [facility] Last Admin: 11/10/17 22:05 Dose: 8 unit Memantine (Namenda) 5 mg PO BID [facility] Last Admin: 11/11/17 11:12 Dose: 5 mg Metoprolol Succinate (Toprol Xl) 200 mg PO DAILY [facility] Last Admin: 11/11/17 11:12 Dose: 200 mg Mirtazapine (Remeron) 15 mg PO [facility] Last Admin: 11/10/17 21:29 Dose: 15 mg Morphine Sulfate (Morphine) 2 mg IVP Q6 PRN PRN Reason: Pain, moderate (4-7) Last Admin: 11/10/17 18:28 Dose: 2 mg Oxycodone/Acetaminophen (Percocet 5/325 Mg Tab) 1 tab PO Q4H PRN PRN Reason: Pain, severe (8-10) Stop: 11/14/17 08:31 Last Admin: 11/11/17 09:00 Dose: 1 tab Pantoprazole Sodium (Protonix Ec Tab) 40 mg PO DAILY [facility] Last Admin: 11/11/17 11:12 Dose: 40 mg Rosuvastatin Calcium (Crestor) 5 mg PO [facility] Last Admin: 11/10/17 21:29 Dose: 5 mg Vitamin B Complex/Vit C/Folic Acid (Nephro-Jerson) 1 tab PO TID [facility] Last Admin: 11/11/17 14:51 Dose: 1 tab - Labs Labs: 11/11/17 10:51 11/11/17 10:51 PT 11.8 SECONDS (9.7-12.2) 11/08/17 14:14 INR 1.1 11/08/17 14:14 APTT 30 SECONDS (21-34) 11/08/17 14:14 - Constitutional Appears: Well - Head Exam Head Exam: ATRAUMATIC, NORMAL INSPECTION, NORMOCEPHALIC - Eye Exam Eye Exam: EOMI, Normal appearance, PERRL Pupil Exam: NORMAL ACCOMODATION, PERRL - ENT Exam ENT Exam: Mucous Membranes Moist, Normal Exam - Neck Exam Neck Exam: Full ROM, Normal Inspection. absent: Lymphadenopathy - Respiratory Exam Respiratory Exam: Decreased Breath Sounds - Cardiovascular Exam Cardiovascular Exam: REGULAR RHYTHM, +S1, +S2 - GI/Abdominal Exam GI & Abdominal Exam: Soft, Diminished Bowel Sounds - Rectal Exam Rectal Exam: Deferred
--- NOTE | 2017-11-11 19:12 | CP.PCM.PN ---
Subjective - Date & Time of Evaluation Date of Evaluation: 11/11/17 Time of Evaluation: 19:00 - Subjective Subjective: patient appears comfortable. no chest pain Objective - Vital Signs/Intake and Output Vital Signs (last 24 hours): Temp Pulse Resp BP Pulse Ox 97.9 F 68 20 151/64 H 94 L 11/11/17 15:00 11/11/17 16:29 11/11/17 15:00 11/11/17 15:00 11/11/17 15:00 - Medications Medications: Current Medications Divalproex Sodium (Depakote Sprinkles) 125 mg PO DAILY [facility] Last Admin: 11/11/17 11:12 Dose: 125 mg Donepezil HCl (Aricept) 5 mg PO [facility] Last Admin: 11/10/17 21:29 Dose: 5 mg Heparin Sodium (Porcine) (Heparin) 5,000 units SC Q12 [facility] Last Admin: 11/10/17 22:05 Dose: 5,000 units Insulin Aspart (Novolog) 0 unit SC [facility] PRN Reason: Protocol Last Admin: 11/11/17 17:27 Dose: 5 unit Insulin Glargine (Lantus) 8 unit SC [facility] Last Admin: 11/10/17 22:05 Dose: 8 unit Memantine (Namenda) 5 mg PO BID [facility] Last Admin: 11/11/17 17:26 Dose: 5 mg Metoprolol Succinate (Toprol Xl) 200 mg PO DAILY [facility] Last Admin: 11/11/17 11:12 Dose: 200 mg Mirtazapine (Remeron) 15 mg PO [facility] Last Admin: 11/10/17 21:29 Dose: 15 mg Morphine Sulfate (Morphine) 2 mg IVP Q6 PRN PRN Reason: Pain, moderate (4-7) Last Admin: 11/10/17 18:28 Dose: 2 mg Oxycodone/Acetaminophen (Percocet 5/325 Mg Tab) 1 tab PO Q4H PRN PRN Reason: Pain, severe (8-10) Stop: 11/14/17 08:31 Last Admin: 11/11/17 09:00 Dose: 1 tab Pantoprazole Sodium (Protonix Ec Tab) 40 mg PO DAILY [facility] Last Admin: 11/11/17 11:12 Dose: 40 mg Rosuvastatin Calcium (Crestor) 5 mg PO [facility] Last Admin: 11/10/17 21:29 Dose: 5 mg Vitamin B Complex/Vit C/Folic Acid (Nephro-Jerson) 1 tab PO TID [facility] Last Admin: 11/11/17 17:26 Dose: 1 tab - Labs Labs: 11/11/17 10:51 11/11/17 10:51 PT 11.8 SECONDS (9.7-12.2) 11/08/17 14:14 INR 1.1 11/08/17 14:14 APTT 30 SECONDS (21-34) 11/08/17 14:14 - Constitutional Appears: Non-toxic - Head Exam Head Exam: NORMAL INSPECTION - Eye Exam Eye Exam: Normal appearance - ENT Exam ENT Exam: Mucous Membranes Moist - Neck Exam Neck Exam: Full ROM - Respiratory Exam Respiratory Exam: Decreased Breath Sounds - Cardiovascular Exam Cardiovascular Exam: REGULAR RHYTHM - GI/Abdominal Exam GI & Abdominal Exam: Normal Bowel Sounds - Rectal Exam Rectal Exam: Deferred - Extremities Exam Extremities Exam: absent: Pedal Edema - Back Exam Back Exam: NORMAL INSPECTION - Neurological Exam Neurological Exam: Alert - Psychiatric Exam Psychiatric exam: Normal Affect - Skin Skin Exam: Normal Color Assessment and Plan (1) HTN (hypertension) Assessment & Plan: blood pressure control Status: Acute (2) CAD (coronary artery disease) Status: Acute (3) Hip fracture, right Assessment & Plan: I reviewed the echocardiogram . Left ventricular function is normal. There is no cardiovascular contraindication to the planned hip surgery. Status: Acute
[2017-11-11] MEDS: (Lantus) Insulin Glargine, Recombinant SC SCH (21:00)
--- NOTE | 2017-11-12 00:47 | CARD ---
APPROVED REPORT EXAM: Two-dimensional and M-mode echocardiogram with Doppler and color Doppler. INDICATION Pre-Op Cardiac Disease: CAD Surgery/Intervention ESRD RISK FACTORS Hypertension 2D DIMENSIONS IVSd1.0 (0.7-1.1cm)LVDd4.1 (3.9-5.9cm) PWd1.3 (0.7-1.1cm)LVDs2.9 (2.5-4.0cm) FS (%) 29.7 %LVEF (%)57.2 (>50%) M-Mode DIMENSIONS Left Atrium (MM)3.98 (2.5-4.0cm)Aortic Root3.91 (2.2-3.7cm) Aortic Cusp Exc.2.18 (1.5-2.0cm) Mitral Valve MV E Ezzjoddq214.9cm/sMV A Mszjlnxf08.7cm/sE/A ratio1.4 TDI E/Lateral E'0.0E/Medial E'0.0 Tricuspid Valve TR Peak Mipicnts152ip/sTR Peak Gr.[id number] LEFT VENTRICLE The left ventricle is normal size. There is borderline to mild asymmetric left ventricular hypertrophy. Left ventricle systolic function is normal. The Ejection Fraction is 55-60%. There is normal LV segmental wall motion. The left ventricular diastolic function is normal. No left ventricle thrombus noted on this study. RIGHT VENTRICLE The right ventricle is normal size. The right ventricular systolic function is normal. ATRIA The left atrium size is normal. The right atrium size is normal. AORTIC VALVE The aortic valve is mildly thickened. The aortic valve is trileaflet. No aortic regurgitation is present. There is no aortic valvular stenosis. There is no aortic valvular vegetation. MITRAL VALVE Mitral annular calcification is mild to moderate. The mitral valve leaflets are thickened. There is no evidence of mitral valve prolapse. There is no mitral valve stenosis. Mitral regurgitation is mild to moderate. TRICUSPID VALVE The tricuspid valve is normal in structure. There is mild tricuspid regurgitation. Right ventricular systolic pressure is estimated at 40-50 mmHg. There is mild-moderate pulmonary hypertension. There is no tricuspid valve prolapse or vegetation. There is no tricuspid valve stenosis. PULMONIC VALVE The pulmonary valve is normal in structure. Pulmonic regurgitation is present, but cannot assess severity. There is no pulmonic valvular stenosis. GREAT VESSELS The aortic root is normal in size. The IVC collapses <50% with inspiration. PERICARDIAL EFFUSION There is no pericardial effusion. There is no pleural effusion. <Conclusion> There is borderline to mild asymmetric left ventricular hypertrophy. Left ventricle systolic function is normal. The Ejection Fraction is 55-60%. The left ventricular diastolic function is normal. The right ventricle is normal size. The right ventricular systolic function is normal. The left atrium size is normal. The right atrium size is normal. Mitral regurgitation is mild to moderate. There is mild tricuspid regurgitation. Right ventricular systolic pressure is estimated at 40-50 mmHg. There is mild-moderate pulmonary hypertension.
[2017-11-12 06:23] LABS: HEMOGLOBIN 10.2 g/dL (12.0-18.0); MEAN CELL VOLUME 94.4 fL (80.0-94.0); MEAN CORPUSCULAR HEMOGLOBIN 31.3 pg (27.0-31.0); MEAN CORPUSCULAR HGB CONC 33.2 g/dL (33.0-37.0); MEAN PLATELET VOLUME 7.3 fL (7.2-11.7); RBC 3.24 Mil/uL (4.40-5.90); RED CELL DISTRIBUTION WIDTH 16.3 % (11.5-14.5); WHITE BLOOD COUNT 11.2 K/uL (4.8-10.8)
[2017-11-12 06:45] LABS: CALCIUM 8.6 mg/dl (8.6-10.4)
[2017-11-12] MEDS ORDERED: ceFAZolin 1 gm in NS 2 GM/200 ML BAG IVPB ONE (07:15)
[2017-11-12] MEDS: (Novolog) Insulin Aspart, Recombinant 100 u/ml 10 ml vial SC SCH ×4 (07:20→23:27)
[2017-11-12] MEDS ORDERED: Propofol 10 mg/ml Inj (20 ML) ONE (07:21)
[2017-11-12] MEDS ORDERED: Etomidate 20 mg/10ml Inj IV ONE ×2 (07:44→09:29)
[2017-11-12] MEDS ORDERED: (Novolin R) Insulin Human Regular 100 units/ml vial IV ONE ×2 (08:55→09:41)
[2017-11-12] MEDS ORDERED: Neostigmine Methylsulfate 3mg/3ml Syringe IV ONE (09:29)
[2017-11-12] MEDS ORDERED: HYDROmorphone 0.5 mg/0.5 ml ISec IVP PRN (09:42)
[2017-11-12] MEDS ORDERED: Calcium Chloride 1000 mg/10 ml Syringe IV ONE (10:12)
--- NOTE | 2017-11-12 10:14 | PCM.SURG1 ---
<Clotilde King A - Last Filed: 11/12/17 10:12> Surgeon's Initial Post Op Note - Surgeon's Notes Surgeon: Tra Leon MD Senior Care Manager: Rita King PA-C Type of Anesthesia: General Endo Anesthesia Administered By: Dr. Gagnon Pre-Operative Diagnosis: Right intertrochanteric hip fracture Operative Findings: same Post-Operative Diagnosis: same Operation Performed: Closed reduction and cephalomedullary nailing right hip ( long nail) Specimen/Specimens Removed: none Estimated Blood Loss: EBL {In ML}: 200 Blood Products Given: N/A Drains Used: No Drains Post-Op Condition: Fair Date of Surgery/Procedure: 11/12/17 Time of Surgery/Procedure: 10:14 <Raf Mcnamara S - Last Filed: 11/12/17 17:28> Surgeon's Initial Post Op Note - Surgeon's Notes Specimen/Specimens Removed: Implants= Depuy / Synthes Long TFNA nail, 400 mm length, 11mm width, 90 mm length helical blade, distal interlocking screws- 5.0 width, 46mm and 50mm lengths
[2017-11-12] MEDS ORDERED: (Novolin R) Insulin Human Regular 100 units/ml vial IV SCH (10:15)
[2017-11-12] MEDS ORDERED: oxyCODONE 5 mg Immediate Release Tab PO PRN (10:25)
--- NOTE | 2017-11-12 10:37 | RAD ---
PROCEDURE: Intraoperative Fluoroscopy. HISTORY: RT HIP FX FINDINGS: Fluoroscopic assistance was provided. Fluoroscopy time 5:00 1.9 seconds. Radiation dose = 65.39 mGy. Please refer to the operative report from LIONEL Morse DR, MD.
--- NOTE | 2017-11-12 12:58 | VASCLAB ---
PROCEDURE: Lower Extremity Venous Duplex Exam. HISTORY: tenderness to calves, r/o DVT PRIORS: None. TECHNIQUE: Bilateral common femoral, femoral, popliteal and posterior tibial, peroneal and great saphenous veins were evaluated. Flow was assessed with color Doppler, compressibility, assessment of phasic flow and augmentation response. Report prepared by Seun Tompkins, DERIC, RVT FINDINGS: RIGHT: 1. Common Femoral Vein: 1.1. Compressibility - Fully compressible: Thrombus - None : Flow - Phasic: Augmentation -Normal: Reflux - None. 2. Femoral Vein: 2.1. Compressibility - Fully compressible: Thrombus - None : Flow - Phasic: Augmentation -Normal: Reflux - None. 3. Popliteal Vein: 3.1. Compressibility - Fully compressible: Thrombus - None : Flow - Phasic: Augmentation -Normal: Reflux - None. 4. Posterior Tibial Vein: 4.1. Compressibility - Fully compressible: Thrombus - None: Flow - Phasic: Augmentation -Normal: Reflux - None. 5. Peroneal Vein: 5.1. Compressibility - Fully compressible: Thrombus - None: Flow - Phasic: Augmentation -Normal: Reflux - None. 6. Great Saphenous Vein: 6.1. Compressibility - Fully compressible: Thrombus - None: Flow - Phasic: Augmentation - Normal: Reflux - None. LEFT: 1. Common Femoral Vein: 1.1. Compressibility - Fully compressible: Thrombus - None: Flow - Phasic: Augmentation -Normal: Reflux - None. 2. Femoral Vein: 2.1. Compressibility - Fully compressible: Thrombus - None: Flow - Phasic: Augmentation -Normal: Reflux - None. 3. Popliteal Vein: 3.1. Compressibility - Fully compressible: Thrombus - None : Flow - Phasic: Augmentation -Normal: Reflux - None. 4. Posterior Tibial Vein: 4.1. Compressibility - Fully compressible: Thrombus - None: Flow - Phasic: Augmentation -Normal: Reflux - None. 5. Peroneal Vein: 5.1. Compressibility - Fully compressible: Thrombus - None: Flow - Phasic: Augmentation -Normal: Reflux - None. 6. Great Saphenous Vein: 6.1. Compressibility - Fully compressible: Thrombus - None: Flow - Phasic: Augmentation - Normal: Reflux - None. OTHER FINDINGS: Right: None significant. Left: None significant. IMPRESSION: Right: No evidence of deep or superficial vein thrombosis of the right lower extremity. Normal valve function noted of the right side. Left: No evidence of deep or superficial vein thrombosis of the left lower extremity. Normal valve function noted of the left side.
[2017-11-12] MEDS: Divalproex 125 mg Sprinkle Capsule PO SCH (15:04)
[2017-11-12] MEDS: Tobramycin 0.3% OPHT SOLN OS SCH ×3 (15:05→21:35)
[2017-11-12] MEDS: Pantoprazole 40 mg EC Tab PO SCH (15:05)
[2017-11-12] MEDS: Multivitamin Vitamin B Complex (Nephro-Vite) Tab PO SCH ×2 (15:05→19:30)
[2017-11-12] MEDS: Metoprolol Succinate 100 mg XL Tab PO SCH (15:06)
--- NOTE | 2017-11-12 19:10 | CP.PCM.PN ---
Subjective - Date & Time of Evaluation Date of Evaluation: 11/12/17 Time of Evaluation: 12:20 - Subjective Subjective: clinically same Objective - Vital Signs/Intake and Output Vital Signs (last 24 hours): Temp Pulse Resp BP Pulse Ox 97.8 F 101 H 16 111/70 100 11/12/17 18:20 11/12/17 18:20 11/12/17 18:20 11/12/17 18:20 11/12/17 18:20 Intake and Output: 11/12/17 11/13/17 18:59 06:59 Intake Total 1025 Balance 1025 - Medications Medications: Current Medications Acetaminophen (Tylenol 325mg Tab) 650 mg PO Q8H [facility] Last Admin: 11/12/17 15:06 Dose: Not Given Divalproex Sodium (Depakote Sprinkles) 125 mg PO DAILY [facility] Last Admin: 11/12/17 15:04 Dose: Not Given Docusate Sodium (Colace) 100 mg PO BID [facility] Donepezil HCl (Aricept) 5 mg PO HS [facility] Last Admin: 11/11/17 21:58 Dose: 5 mg Heparin Sodium (Porcine) (Heparin) 5,000 units SC Q12 [facility] Last Admin: 11/10/17 22:05 Dose: 5,000 units Cefazolin Sodium/Dextrose (Ancef Iv 1 Gm Duplex) 1 gm in 50 mls @ 100 mls/hr IVPB Q8H [facility] PRN Reason: Protocol Stop: 11/13/17 00:29 Insulin Aspart (Novolog) 0 unit SC ACHS [facility] PRN Reason: Protocol Last Admin: 11/12/17 18:56 Dose: Not Given Insulin Glargine (Lantus) 8 unit SC [facility] Last Admin: 11/11/17 21:00 Dose: Not Given Memantine (Namenda) 5 mg PO BID [facility] Last Admin: 11/12/17 15:04 Dose: Not Given Metoprolol Succinate (Toprol Xl) 200 mg PO DAILY [facility] Last Admin: 11/12/17 15:06 Dose: Not Given Mirtazapine (Remeron) 15 mg PO HS [facility] Last Admin: 11/11/17 21:57 Dose: 15 mg Morphine Sulfate (Morphine) 2 mg IVP Q6 PRN PRN Reason: Pain, moderate (4-7) Last Admin: 05/28/18 18:28 Dose: 2 mg Oxycodone HCl (Oxycodone Immediate Release Tab) 5 mg PO Q6 PRN PRN Reason: Pain, moderate (4-7) Pantoprazole Sodium (Protonix Ec Tab) 40 mg PO DAILY [facility] Last Admin: 11/12/17 15:05 Dose: Not Given Rosuvastatin Calcium (Crestor) 5 mg PO HS [facility] Last Admin: 11/11/17 21:57 Dose: 5 mg Tobramycin Sulfate (Tobrex 0.3% Ophth Soln) 2 drop OS Q6H [facility] Last Admin: 11/12/17 18:56 Dose: Not Given Vitamin B Complex/Vit C/Folic Acid (Nephro-Jerson) 1 tab PO TID [facility] Last Admin: 11/12/17 15:05 Dose: Not Given - Labs Labs: 11/12/17 06:17 11/12/17 06:17 PT 11.8 SECONDS (9.7-12.2) 11/08/17 14:14 INR 1.1 11/08/17 14:14 APTT 30 SECONDS (21-34) 11/08/17 14:14 - Constitutional Appears: Well - Head Exam Head Exam: ATRAUMATIC, NORMAL INSPECTION, NORMOCEPHALIC - Eye Exam Eye Exam: EOMI, Normal appearance, PERRL - ENT Exam ENT Exam: Mucous Membranes Moist, Normal Exam - Neck Exam Neck Exam: Full ROM, Normal Inspection. absent: Lymphadenopathy - Respiratory Exam Respiratory Exam: Decreased Breath Sounds - Cardiovascular Exam Cardiovascular Exam: REGULAR RHYTHM, +S1, +S2 - GI/Abdominal Exam GI & Abdominal Exam: Soft, Diminished Bowel Sounds - Rectal Exam Rectal Exam: Deferred
[2017-11-12] MEDS: ceFAZolin IV 1 gm in Dextrose 1 GM/50 ML BAG IVPB SCH (19:29)
[2017-11-12] MEDS: (Lantus) Insulin Glargine, Recombinant SC SCH (21:35)
[2017-11-13] MEDS: ceFAZolin IV 1 gm in Dextrose 1 GM/50 ML BAG IVPB SCH (00:30)
[2017-11-13 03:00] LABS: GRANULAR CAST 207 /lpf (0-1); SQUAMOUS EPITHIAL 2 /hpf (0-5); URINE BACTERIA MANY (<OCC); URINE BILIRUBIN NEGATIVE (NEGATIVE); URINE BLOOD NEGATIVE (NEGATIVE); URINE CLARITY Hazy (Clear); URINE COLOR Amber (YELLOW); URINE GLUCOSE (UA) 3+ mg/dL (Normal); URINE LEUKOCYTE ESTERASE 2+ Leu/uL (Negative); URINE PROTEIN 2+ mg/dL (NEGATIVE); URINE UROBILINOGEN NORMAL mg/dL (0.2-1.0)
[2017-11-13] MEDS: Tobramycin 0.3% OPHT SOLN OS SCH ×4 (04:15→21:30)
[2017-11-13 07:25] LABS: HEMOGLOBIN 9.1 g/dL (12.0-18.0); MEAN CORPUSCULAR HGB CONC 34.9 g/dL (33.0-37.0); MEAN PLATELET VOLUME 6.9 fL (7.2-11.7); RBC 2.85 Mil/uL (4.40-5.90); RED CELL DISTRIBUTION WIDTH 17.1 % (11.5-14.5)
[2017-11-13 07:32] LABS: CALCIUM 7.8 mg/dl (8.6-10.4)
[2017-11-13 07:57] LABS: MEAN CELL VOLUME 91.7 fL (80.0-94.0)
[2017-11-13] MEDS: (Novolog) Insulin Aspart, Recombinant 100 u/ml 10 ml vial SC SCH ×4 (08:18→22:09)
[2017-11-13] MEDS: Metoprolol Succinate 100 mg XL Tab PO SCH (09:37)
[2017-11-13] MEDS: Pantoprazole 40 mg EC Tab PO SCH (09:38)
[2017-11-13] MEDS: Multivitamin Vitamin B Complex (Nephro-Vite) Tab PO SCH ×2 (09:38→17:24)
[2017-11-13] MEDS: Divalproex 125 mg Sprinkle Capsule PO SCH (09:39)
--- NOTE | 2017-11-13 10:08 | CP.PCM.PN ---
Subjective - Date & Time of Evaluation Date of Evaluation: 11/13/17 Time of Evaluation: 10:04 - Subjective Subjective: Patient is out of bed in chair. Awake and alert. Says he has only a little pain. Denies CP/SOB. Objective - Vital Signs/Intake and Output Vital Signs (last 24 hours): Temp Pulse Resp BP Pulse Ox 10.0 F L 107 H 20 101/51 L 97 11/13/17 08:40 11/13/17 09:36 11/13/17 08:40 11/13/17 09:36 11/13/17 08:40 Intake and Output: 11/13/17 11/13/17 06:59 18:59 Intake Total 450 Output Total 830 Balance -380 - Medications Medications: Current Medications Acetaminophen (Tylenol 325mg Tab) 650 mg PO Q8H [facility] Last Admin: 11/13/17 09:38 Dose: 650 mg Divalproex Sodium (Depakote Sprinkles) 125 mg PO DAILY [facility] Last Admin: 11/13/17 09:39 Dose: 125 mg Docusate Sodium (Colace) 100 mg PO BID [facility] Last Admin: 11/13/17 09:37 Dose: 100 mg Donepezil HCl (Aricept) 5 mg PO HS [facility] Last Admin: 11/12/17 21:36 Dose: 5 mg Heparin Sodium (Porcine) (Heparin) 5,000 units SC Q12 [facility] Last Admin: 11/10/17 22:05 Dose: 5,000 units Insulin Aspart (Novolog) 0 unit SC ACHS [facility] PRN Reason: Protocol Last Admin: 11/13/17 08:18 Dose: 3 unit Insulin Glargine (Lantus) 8 unit SC [facility] Last Admin: 11/12/17 21:35 Dose: 8 unit Memantine (Namenda) 5 mg PO BID [facility] Last Admin: 11/13/17 09:38 Dose: 5 mg Metoprolol Succinate (Toprol Xl) 200 mg PO DAILY [facility] Last Admin: 11/13/17 09:37 Dose: Not Given Mirtazapine (Remeron) 15 mg PO HS [facility] Last Admin: 11/12/17 21:36 Dose: 15 mg Morphine Sulfate (Morphine) 2 mg IVP Q6 PRN PRN Reason: Pain, moderate (4-7) Last Admin: 11/10/17 18:28 Dose: 2 mg Oxycodone HCl (Oxycodone Immediate Release Tab) 5 mg PO Q6 PRN PRN Reason: Pain, moderate (4-7) Pantoprazole Sodium (Protonix Ec Tab) 40 mg PO DAILY [facility] Last Admin: 11/13/17 09:38 Dose: 40 mg Rosuvastatin Calcium (Crestor) 5 mg PO HS [facility] Last Admin: 11/12/17 21:36 Dose: 5 mg Tobramycin Sulfate (Tobrex 0.3% Ophth Soln) 2 drop OS Q6H [facility] Last Admin: 11/13/17 09:39 Dose: 2 drop Vitamin B Complex/Vit C/Folic Acid (Nephro-Jerson) 1 tab PO TID [facility] Last Admin: 11/13/17 09:38 Dose: 1 tab - Labs Labs: 11/13/17 07:13 11/13/17 07:13 PT 11.8 SECONDS (9.7-12.2) 11/08/17 14:14 INR 1.1 11/08/17 14:14 APTT 30 SECONDS (21-34) 11/08/17 14:14 - Extremities Exam Additional comments: RLE: thigh mildly swollen, +ROM ankle/toes, sensation intact +DP/PT pulses calves soft NT neg homans no drainage left eye: yesterday noted thick cloudy pale yellow drainage with left eye crusting and redness. improving today. much less drainage and erythema Assessment and Plan (1) Closed intertrochanteric fracture of right hip Assessment & Plan: POD#1 s/p right hip nailing PT/OT VTE proph d/c planning u/a abnormal, f/u culture d/w Dr. Leon, agrees with above Status: Acute (2) Acute conjunctivitis, left eye Assessment & Plan: tobradex will monitor Status: Acute (3) Acute blood loss anemia Assessment & Plan: monitor Status: Acute
--- NOTE | 2017-11-13 10:09 | CP.PCM.PN ---
Subjective - Date & Time of Evaluation Date of Evaluation: 11/13/17 Time of Evaluation: 08:45 - Subjective Subjective: patient has no chest pain or dyspnea. He is s/p hip replacement. Objective - Vital Signs/Intake and Output Vital Signs (last 24 hours): Temp Pulse Resp BP Pulse Ox 10.0 F L 107 H 20 101/51 L 97 11/13/17 08:40 11/13/17 09:36 11/13/17 08:40 11/13/17 09:36 11/13/17 08:40 Intake and Output: 11/13/17 11/13/17 06:59 18:59 Intake Total 450 Output Total 830 Balance -380 - Medications Medications: Current Medications Acetaminophen (Tylenol 325mg Tab) 650 mg PO Q8H [facility] Last Admin: 11/13/17 09:38 Dose: 650 mg Divalproex Sodium (Depakote Sprinkles) 125 mg PO DAILY [facility] Last Admin: 11/13/17 09:39 Dose: 125 mg Docusate Sodium (Colace) 100 mg PO BID [facility] Last Admin: 11/13/17 09:37 Dose: 100 mg Donepezil HCl (Aricept) 5 mg PO HS [facility] Last Admin: 11/12/17 21:36 Dose: 5 mg Heparin Sodium (Porcine) (Heparin) 5,000 units SC Q12 [facility] Last Admin: 11/10/17 22:05 Dose: 5,000 units Insulin Aspart (Novolog) 0 unit SC ACHS [facility] PRN Reason: Protocol Last Admin: 11/13/17 08:18 Dose: 3 unit Insulin Glargine (Lantus) 8 unit SC HS [facility] Last Admin: 11/12/17 21:35 Dose: 8 unit Memantine (Namenda) 5 mg PO BID [facility] Last Admin: 11/13/17 09:38 Dose: 5 mg Metoprolol Succinate (Toprol Xl) 200 mg PO DAILY [facility] Last Admin: 11/13/17 09:37 Dose: Not Given Mirtazapine (Remeron) 15 mg PO HS [facility] Last Admin: 11/12/17 21:36 Dose: 15 mg Morphine Sulfate (Morphine) 2 mg IVP Q6 PRN PRN Reason: Pain, moderate (4-7) Last Admin: 11/10/17 18:28 Dose: 2 mg Oxycodone HCl (Oxycodone Immediate Release Tab) 5 mg PO Q6 PRN PRN Reason: Pain, moderate (4-7) Pantoprazole Sodium (Protonix Ec Tab) 40 mg PO DAILY [facility] Last Admin: 11/13/17 09:38 Dose: 40 mg Rosuvastatin Calcium (Crestor) 5 mg PO HS [facility] Last Admin: 11/12/17 21:36 Dose: 5 mg Tobramycin Sulfate (Tobrex 0.3% Ophth Soln) 2 drop OS Q6H [facility] Last Admin: 11/13/17 09:39 Dose: 2 drop Vitamin B Complex/Vit C/Folic Acid (Nephro-Jerson) 1 tab PO TID [facility] Last Admin: 11/13/17 09:38 Dose: 1 tab - Labs Labs: 11/13/17 07:13 11/13/17 07:13 PT 11.8 SECONDS (9.7-12.2) 11/08/17 14:14 INR 1.1 11/08/17 14:14 APTT 30 SECONDS (21-34) 11/08/17 14:14 - Constitutional Appears: Non-toxic - Head Exam Head Exam: NORMAL INSPECTION - Eye Exam Eye Exam: Normal appearance - ENT Exam ENT Exam: Mucous Membranes Moist - Neck Exam Neck Exam: Full ROM - Respiratory Exam Respiratory Exam: NORMAL BREATHING PATTERN - Cardiovascular Exam Cardiovascular Exam: REGULAR RHYTHM - GI/Abdominal Exam GI & Abdominal Exam: Normal Bowel Sounds - Rectal Exam Rectal Exam: Deferred - Extremities Exam Extremities Exam: Full ROM - Back Exam Back Exam: NORMAL INSPECTION - Neurological Exam Neurological Exam: Alert, Oriented x3 - Psychiatric Exam Psychiatric exam: Normal Affect - Skin Skin Exam: Normal Color Assessment and Plan (1) HTN (hypertension) Assessment & Plan: blood pressure control with medication Status: Acute (2) CAD (coronary artery disease) Assessment & Plan: no post op myocardial event. recommend resumption of antiplatelet therapy when feasible surgically Status: Acute (3) Hip fracture, right Assessment & Plan: post op management Status: Acute
--- NOTE | 2017-11-13 10:39 | CP.PCM.PN ---
Subjective - Date & Time of Evaluation Date of Evaluation: 11/13/17 Time of Evaluation: 10:39 - Subjective Subjective: Progress Note for Dr. Fox Patient seen and examined at the bedside. Patient complains of mild discomfort at the surgical site. Patient denies having fever, chills, shortness of breath, chest pain, nausea, vomiting, or diarrhea. Objective - Vital Signs/Intake and Output Vital Signs (last 24 hours): Temp Pulse Resp BP Pulse Ox 10.0 F L 107 H 20 101/51 L 97 11/13/17 08:40 11/13/17 09:36 11/13/17 08:40 11/13/17 09:36 11/13/17 08:40 Intake and Output: 11/13/17 11/13/17 06:59 18:59 Intake Total 450 Output Total 830 Balance -380 - Medications Medications: Current Medications Acetaminophen (Tylenol 325mg Tab) 650 mg PO Q8H [facility] Last Admin: 11/13/17 09:38 Dose: 650 mg Divalproex Sodium (Depakote Sprinkles) 125 mg PO DAILY [facility] Last Admin: 11/13/17 09:39 Dose: 125 mg Docusate Sodium (Colace) 100 mg PO BID [facility] Last Admin: 11/13/17 09:37 Dose: 100 mg Donepezil HCl (Aricept) 5 mg PO HS [facility] Last Admin: 11/12/17 21:36 Dose: 5 mg Heparin Sodium (Porcine) (Heparin) 5,000 units SC Q12 [facility] Last Admin: 11/13/17 10:16 Dose: 5,000 units Insulin Aspart (Novolog) [address] [facility] PRN Reason: Protocol Last Admin: 11/13/17 08:18 Dose: 3 unit Insulin Glargine (Lantus) 8 unit SC HS [facility] Last Admin: 11/12/17 21:35 Dose: 8 unit Memantine (Namenda) 5 mg PO BID [facility] Last Admin: 11/13/17 09:38 Dose: 5 mg Metoprolol Succinate (Toprol Xl) 200 mg PO DAILY [facility] Last Admin: 11/13/17 09:37 Dose: Not Given Mirtazapine (Remeron) 15 mg PO HS [facility] Last Admin: 11/12/17 21:36 Dose: 15 mg Morphine Sulfate (Morphine) 2 mg IVP Q6 PRN PRN Reason: Pain, moderate (4-7) Last Admin: 11/10/17 18:28 Dose: 2 mg Oxycodone HCl (Oxycodone Immediate Release Tab) 5 mg PO Q6 PRN PRN Reason: Pain, moderate (4-7) Pantoprazole Sodium (Protonix Ec Tab) 40 mg PO DAILY [facility] Last Admin: 11/13/17 09:38 Dose: 40 mg Rosuvastatin Calcium (Crestor) 5 mg PO HS [facility] Last Admin: 11/12/17 21:36 Dose: 5 mg Tobramycin Sulfate (Tobrex 0.3% Ophth Soln) 2 drop OS Q6H [facility] Last Admin: 11/13/17 09:39 Dose: 2 drop Vitamin B Complex/Vit C/Folic Acid (Nephro-Jerson) 1 tab PO TID [facility] Last Admin: 11/13/17 09:38 Dose: 1 tab - Labs Labs: 11/13/17 07:13 11/13/17 07:13 PT 11.8 SECONDS (9.7-12.2) 11/08/17 14:14 INR 1.1 11/08/17 14:14 APTT 30 SECONDS (21-34) 11/08/17 14:14 - Additional Findings Additional findings: - Constitutional Appears: Non-toxic - Head Exam Head Exam: NORMAL INSPECTION - Eye Exam Eye Exam: Normal appearance - ENT Exam ENT Exam: Mucous Membranes Moist - Neck Exam Neck Exam: Full ROM - Respiratory Exam Respiratory Exam: NORMAL BREATHING PATTERN - Cardiovascular Exam Cardiovascular Exam: REGULAR RHYTHM - GI/Abdominal Exam GI & Abdominal Exam: Normal Bowel Sounds - Rectal Exam Rectal Exam: Deferred - Extremities Exam Extremities Exam: Full ROM - Back Exam Back Exam: NORMAL INSPECTION - Neurological Exam Neurological Exam: Alert, Oriented x3 - Psychiatric Exam Psychiatric exam: Normal Affect - Skin Skin Exam: Normal Color Assessment and Plan - Assessment and Plan (Free Text) Assessment: Right hip fracture -s/p right hip nailing POD #1 -Follow ortho recommendations -Oxycodone 5mg Q6 prn -Incentive spirometry -Continue PT Urinary Retention -Urology consulted, help appreciated -Patient reports to be passing urine ESRD -Dialysis MWF HTN -Metoprolol 200mg DM -Insulin Glargine 8u HS -ISS CAD -Metoprolol 200mg -Crestor 5mg Dementia -Aricept 5mg po HS -Memantine 5mg BID Prophylactic measures -Heparin 5000u SC Q12 -SCD -Protonix 40mg -Colace -PT -Palliative consult Dispo: pending authorization to [facility] All management per Dr. Fox
--- NOTE | 2017-11-13 11:47 | PCM.URO ---
Urology Progress Note - Objective Lab Studies: Reviewed (thanks for gu consult full note to be dictated) Lab Results Last 24 Hours: Laboratory Results - last 24 hr 11/11/17 11/12/17 11/12/17 10:15 12:27 15:54 WBC RBC Hgb Hct MCV MCH MCHC RDW Plt Count MPV Sodium Potassium Chloride Carbon Dioxide Anion Gap BUN Creatinine Est GFR ( Amer) Est GFR (Non-Af Amer) POC Glucose (mg/dL) 258 H 129 H Random Glucose Calcium Urine Color Urine Clarity Urine pH Ur Specific [place] Urine Protein Urine Glucose (UA) Urine Ketones Urine Blood Urine Nitrate Urine Bilirubin Urine Urobilinogen Ur Leukocyte Esterase Urine WBC (Auto) Urine RBC (Auto) Ur Squamous Epith Cells Urine Bacteria Granular Casts (Auto) Blood Type O POSITIVE Antibody Screen Negative 11/12/17 11/13/17 11/13/17 21:31 02:52 06:38 WBC RBC Hgb Hct MCV MCH MCHC RDW Plt Count MPV Sodium Potassium Chloride Carbon Dioxide Anion Gap BUN Creatinine Est GFR ( Amer) Est GFR (Non-Af Amer) POC Glucose (mg/dL) 182 H 259 H Random Glucose Calcium Urine Color Lola Urine Clarity Hazy Urine pH 5.0 Ur Specific [place] 1.015 Urine Protein 2+ H Urine Glucose (UA) 3+ H Urine Ketones Negative Urine Blood Negative Urine Nitrate Negative Urine Bilirubin Negative Urine Urobilinogen Normal Ur Leukocyte Esterase 2+ H Urine WBC (Auto) 110 H Urine RBC (Auto) 4 H Ur Squamous Epith Cells 2 Urine Bacteria Many H Granular Casts (Auto) 207 Blood Type Antibody Screen 11/13/17 11/13/17 07:13 07:13 WBC 10.0 RBC 2.85 L Hgb 9.1 L Hct 26.2 L MCV 91.7 D MCH 32.0 H MCHC 34.9 RDW 17.1 H Plt Count 191 MPV 6.9 L Sodium 137 Potassium 4.4 Chloride 97 L Carbon Dioxide 29 Anion Gap 15 BUN 26 H Creatinine 2.1 H Est GFR ( Amer) 37 Est GFR (Non-Af Amer) 31 POC Glucose (mg/dL) Random Glucose 236 H Calcium 7.8 L Urine Color Urine Clarity Urine pH Ur Specific [place] Urine Protein Urine Glucose (UA) Urine Ketones Urine Blood Urine Nitrate Urine Bilirubin Urine Urobilinogen Ur Leukocyte Esterase Urine WBC (Auto) Urine RBC (Auto) Ur Squamous Epith Cells Urine Bacteria Granular Casts (Auto) Blood Type Antibody Screen Intake & Output: Intake & Output 11/12/17 11/13/17 11/13/17 18:59 06:59 18:59 Intake Total 1025 450 Output Total 830 Balance 1025 -380 Intake: IV 750 Intake, IV Amount 50 Right Hand 50 Oral 400 Blood Product 275 Output: Urine 830 Urethral (Dubois) 130 Urine, Voided 700 Vital Signs: Vital Signs - 24 hr 11/12/17 11/12/17 11/12/17 14:40 14:50 15:05 Temperature 96 F L 96 F L Pulse Rate 85 Pulse Rate [ 85 Right Brachial] Respiratory 20 20 Rate Blood Pressure 113/62 Blood Pressure 118/61 113/54 L [Right Arm] O2 Sat by Pulse 97 Oximetry 11/12/17 11/12/17 11/12/17 15:20 15:35 15:50 Temperature Pulse Rate Pulse Rate [ Right Brachial] Respiratory Rate Blood Pressure Blood Pressure 94/47 L 83/48 L 97/49 L [Right Arm] O2 Sat by Pulse Oximetry 11/12/17 11/12/17 11/12/17 16:20 16:50 17:20 Temperature Pulse Rate Pulse Rate [ Right Brachial] Respiratory Rate Blood Pressure Blood Pressure 106/64 110/57 L 117/69 [Right Arm] O2 Sat by Pulse Oximetry 11/12/17 11/12/17 11/12/17 17:50 18:20 20:11 Temperature 97.8 F Pulse Rate 99 H Pulse Rate [ 101 H Right Brachial] Respiratory 16 Rate Blood Pressure Blood Pressure 120/80 111/70 [Right Arm] O2 Sat by Pulse 100 Oximetry 11/12/17 11/12/17 11/13/17 23:30 23:35 04:10 Temperature 98.9 F 97.9 F Pulse Rate 90 89 84 Pulse Rate [ Right Brachial] Respiratory 20 20 Rate Blood Pressure 90/47 L 98/54 L Blood Pressure [Right Arm] O2 Sat by Pulse 97 97 Oximetry 11/13/17 11/13/17 11/13/17 08:00 08:40 09:36 Temperature 10.0 F L Pulse Rate 100 H 100 H 107 H Pulse Rate [ Right Brachial] Respiratory 20 Rate Blood Pressure 119/62 101/51 L Blood Pressure [Right Arm] O2 Sat by Pulse 97 Oximetry
--- NOTE | 2017-11-13 14:32 | CP.PCM.CON ---
History of Present Illness - History of Present Illness History of Present Illness: Palliative consult requested by Doctor bryan Fox as per family request for Code status discussion Patient is a 77 yo male admitted post fall at home. patient landed on his right knee and right side. he denied LOC. The X Ray fo right femur was significant for Comminuted Fx. Patient is S/P surgical repair of right hip fracture. PMH: HTN, DM, SRD with HD, frequent falls, uses walkerat home Soc. Hx: single, lives with daughter Fam. Hx: father with kidney disease, Review of Systems - Constitutional Constitutional: Frequent Falls - EENT Eyes: absent: As Per HPI, Blind Spots, Blurred Vision, Change in Vision, Decreased Night Vision, Diplopia, Discharge, Dry Eye, Exophthalmos, Floaters, Irritation, Itchy Eyes, Loss of Peripheral Vision, Pain, Photophobia, Requires Corrective Lenses, Sees Flashes, Spots in Vision, Tunnel Vision, Other Visual Disturbances, Loss of Vision, Other Ears: absent: As Per HPI, Decreased Hearing, Ear Discharge, Ear Pain, Tinnitus, Abnormal Hearing, Disequilibrium, Dizziness, Other Nose/Mouth/Throat: absent: As Per HPI, Epistaxis, Nasal Congestion, Nasal Discharge, Nasal Obstruction, Nasal Trauma, Nose Pain, Post Nasal Drip, Sinus Pain, Sinus Pressure, Bleeding Gums, Change in Voice, Dental Pain, Dry Mouth, Dysphagia, Halitosis, Hoarsness, Lip Swelling, Mouth Lesions, Mouth Pain, Odynophagia, Sore Throat, Throat Swelling, Tongue Swelling, Facial Pain, Neck Pain, Neck Mass, Other - Cardiovascular Cardiovascular: absent: As Per HPI, Acrocyanosis, Chest Pain, Chest Pain at Rest , Chest Pain with Activity, Claudication, Diaphoresis, Dyspnea, Dyspnea on Exertion, Edema, Irregular Heart Rhythm, Pain Radiating to Arm/Neck/Jaw, Leg Edema, Leg Ulcers, Lightheadedness, Orthopnea, Palpitations, Paroxysmal Nocturnal Dyspnea, Pedal Edema, Radiating Pain, Rapid Heart Rate, Slow Heart Rate, Syncope, Other - Respiratory Respiratory: absent: As Per HPI, Cough, Dyspnea, Hemoptysis, Dyspnea on Exertion , Wheezing, Snoring, Stridor, Pain on Inspiration, Chest Congestion, Excessive Mucous Production, Change in Mucous Color, Pain with Coughing, Other - Gastrointestinal Gastrointestinal: absent: As Per HPI, Abdominal Pain, Belching, Bloating, Change in Bowel Habits, Change in Stool Character, Coffee Ground Emesis, Constipation, Cramping, Diarrhea, Dyspepsia, Dysphagia, Early Satiety, Excessive Flatus, Fecal Incontinence, Heartburn, Hematemesis, Hematochezia, Loose Stools, Melena, Nausea, Odynophagia, Temesmus, Vomiting, Other - Genitourinary Genitourinary: absent: As Per HPI, Change in Urinary Stream, Difficulty Urinating, Dysuria, Flank Pain, Hematuria, Pyuria, Nocturia, Urinary Incontinence, Urinary Frequency, Urinary Hesitance, Urinary Urgency, Voiding Freq/Small Amts, Freq UTI, Hx Renal/Bladder Calculi, Hx /Renal Surgery, Bladder Distension, Other - Musculoskeletal Musculoskeletal: Limited Range of Motion - Integumentary Integumentary: absent: As Per HPI, Acne, Alopecia, Bleeding Lesions, Change in Hair, Change in Nails, Change in Pigmentation, Changing Lesions, Dry Skin, Erythema, Furuncle, Hirsutism, Lesions, New Lesions, Non-Healing Lesions, Photosensitivity, Pruritus, Rash, Skin Pain, Skin Ulcer, Sores, Striae, Swelling , Unusual Bruising, Wounds, Jaundice, Other - Neurological Neurological: absent: As Per HPI, Abnormal Gait, Abnormal Hearing, Abnormal Movements, Abnormal Speech, Behavioral Changes, Burning Sensations, Confusion, Convulsions, Disequilibrium, Dizziness, Numbness, Focal Weakness, Frequent Falls , Headaches, Lack of Coordination, Loss of Vision, Memory Loss, Paresthesias, Radicular Pain, Restless Legs, Sensory Deficit, Syncope, Tingling, Tremor, Vertigo, Weakness, Other Visual Disturbances, Other - Psychiatric Psychiatric: absent: As Per HPI, Abnormal Sleep Pattern, Anhedonia, Anxiety, Auditory Hallucinations, Behavioral Changes, Change in Appetite, Change in Libido, Confusion, Depression, Difficulty Concentrating, Hallucinations, Homicidal Ideation, Hopelessness, Irritability, Memory Loss, Mood Swings, Panic Attacks, Paranoia, Suicidal Ideation, Visual Hallucinations, Tactile Hallucinations, Other - Endocrine Endocrine: absent: As Per HPI, Change in Body Appearance, Change in Libido, Cold Intolorance, Deepening of Voice, Excessive Sweating, Fatigue, Flushing, Heat Intolorance, Increase in Ring/Shoe/Hat Size, Palpitations, Polydipsia, Polyphagia, Polyuria, Other - Hematologic/Lymphatic Hematologic: absent: As Per HPI, Easy Bleeding, Easy Bruising, Lymphadenopathy, Other Past Patient History - Past Medical History & Family History Past Medical History?: Yes Past Family History: Reviewed and not pertinent - Past Social History Smoking Status: Never Smoked - CARDIAC Hx Cardiac Disorders: Yes Hx Hypertension: Yes - PULMONARY Hx Respiratory Disorders: No - NEUROLOGICAL Hx Dementia: Yes - RENAL Hx Dialysis: Yes Type of Dialysis Access: left fistual Date of Last Dialysis Treatment: 11/07/17 - ENDOCRINE/METABOLIC Hx Diabetes Mellitus Type 1: Yes - HEMATOLOGICAL/ONCOLOGICAL Hx Anemia: Yes - MUSCULOSKELETAL/RHEUMATOLOGICAL Hx Arthritis: Yes - GASTROINTESTINAL Hx Gastrointestinal Disorders: No - GENITOURINARY/GYNECOLOGICAL Hx Genitourinary Disorders: No - PSYCHIATRIC Hx Substance Use: No - SURGICAL HISTORY Hx Surgeries: Yes Hx Cardiac Catheterization: Yes (2004) - ANESTHESIA Hx Anesthesia: Yes Hx Anesthesia Reactions: No Hx Malignant Hyperthermia: No Meds Allergies/Adverse Reactions: Allergies Allergy/AdvReac Type Severity Reaction Status Date / Time No Known Allergies Allergy Unverified 11/08/17 12:24 - Medications Medications: Current Medications Acetaminophen (Tylenol 325mg Tab) 650 mg PO Q8H [facility] Last Admin: 11/13/17 09:38 Dose: 650 mg Divalproex Sodium (Depakote Sprinkles) 125 mg PO DAILY [facility] Last Admin: 11/13/17 09:39 Dose: 125 mg Docusate Sodium (Colace) 100 mg PO BID [facility] Last Admin: 11/13/17 09:37 Dose: 100 mg Donepezil HCl (Aricept) 5 mg PO [facility] Last Admin: 11/12/17 21:36 Dose: 5 mg Heparin Sodium (Porcine) (Heparin) 5,000 units SC Q12 [facility] Last Admin: 11/13/17 10:16 Dose: 5,000 units Insulin Aspart (Novolog) 0 unit SC [facility] PRN Reason: Protocol Last Admin: 11/13/17 12:18 Dose: 6 unit Insulin Glargine (Lantus) 8 unit SC [facility] Last Admin: 11/12/17 21:35 Dose: 8 unit Memantine (Namenda) 5 mg PO BID [facility] Last Admin: 11/13/17 09:38 Dose: 5 mg Metoprolol Succinate (Toprol Xl) 200 mg PO DAILY [facility] Last Admin: 05/31/18 09:37 Dose: Not Given Mirtazapine (Remeron) 15 mg PO [facility] Last Admin: 11/12/17 21:36 Dose: 15 mg Morphine Sulfate (Morphine) 2 mg IVP Q6 PRN PRN Reason: Pain, moderate (4-7) Last Admin: 11/10/17 18:28 Dose: 2 mg Oxycodone HCl (Oxycodone Immediate Release Tab) 5 mg PO Q6 PRN PRN Reason: Pain, moderate (4-7) Pantoprazole Sodium (Protonix Ec Tab) 40 mg PO DAILY [facility] Last Admin: 11/13/17 09:38 Dose: 40 mg Rosuvastatin Calcium (Crestor) 5 mg PO [facility] Last Admin: 11/12/17 21:36 Dose: 5 mg Tobramycin Sulfate (Tobrex 0.3% Ophth Soln) 2 drop OS Q6H [facility] Last Admin: 11/13/17 09:39 Dose: 2 drop Vitamin B Complex/Vit C/Folic Acid (Nephro-Jerson) 1 tab PO TID [facility] Last Admin: 11/13/17 09:38 Dose: 1 tab Physical Exam - Constitutional Appears: No Acute Distress - Head Exam Head Exam: ATRAUMATIC, NORMAL INSPECTION, NORMOCEPHALIC - Eye Exam Eye Exam: EOMI, Normal appearance, PERRL Pupil Exam: NORMAL ACCOMODATION, PERRL - ENT Exam ENT Exam: Mucous Membranes Moist, Normal Exam - Neck Exam Neck exam: Positive for: Normal Inspection - Respiratory Exam Respiratory Exam: NORMAL BREATHING PATTERN - Cardiovascular Exam Cardiovascular Exam: Tachycardia, REGULAR RHYTHM - GI/Abdominal Exam GI & Abdominal Exam: Normal Bowel Sounds - Rectal Exam Rectal Exam: Deferred - Extremities Exam Additional comments: right hip pain - Back Exam Back exam: NORMAL INSPECTION - Neurological Exam Neurological exam: Alert - Psychiatric Exam Psychiatric exam: Normal Affect, Normal Mood - Skin Skin Exam: Normal Color, Warm Results - Vital Signs Recent Vital Signs: Last Vital Signs Temp 10.0 F L 11/13/17 08:40 Pulse 103 H 11/13/17 12:47 Resp 20 11/13/17 08:40 BP 101/51 L 11/13/17 09:36 Pulse Ox 97 11/13/17 08:40 - Labs Result Diagrams: 11/13/17 07:13 11/13/17 07:13 Labs: Laboratory Results - last 24 hr 11/12/17 11/12/17 11/13/17 15:54 21:31 02:52 WBC RBC Hgb Hct MCV MCH MCHC RDW Plt Count MPV Sodium Potassium Chloride Carbon Dioxide Anion Gap BUN Creatinine Est GFR ( Amer) Est GFR (Non-Af Amer) POC Glucose (mg/dL) 129 H 182 H Random Glucose Calcium Urine Color Lola Urine Clarity Hazy Urine pH 5.0 Ur Specific Gar[place] 1.015 Urine Protein 2+ H Urine Glucose (UA) 3+ H Urine Ketones Negative Urine Blood Negative Urine Nitrate Negative Urine Bilirubin Negative Urine Urobilinogen Normal Ur Leukocyte Esterase 2+ H Urine WBC (Auto) 110 H Urine RBC (Auto) 4 H Ur Squamous Epith Cells 2 Urine Bacteria Many H Granular Casts (Auto) 207 11/13/17 11/13/17 11/13/17 06:38 07:13 07:13 WBC 10.0 RBC 2.85 L Hgb 9.1 L Hct 26.2 L MCV 91.7 D MCH 32.0 H MCHC 34.9 RDW 17.1 H Plt Count 191 MPV 6.9 L Sodium 137 Potassium 4.4 Chloride 97 L Carbon Dioxide 29 Anion Gap 15 BUN 26 H Creatinine 2.1 H Est GFR ( Amer) 37 Est GFR (Non-Af Amer) 31 POC Glucose (mg/dL) 259 H Random Glucose 236 H Calcium 7.8 L Urine Color Urine Clarity Urine pH Ur Specific [place] Urine Protein Urine Glucose (UA) Urine Ketones Urine Blood Urine Nitrate Urine Bilirubin Urine Urobilinogen Ur Leukocyte Esterase Urine WBC (Auto) Urine RBC (Auto) Ur Squamous Epith Cells Urine Bacteria Granular Casts (Auto) 11/13/17 11:38 WBC RBC Hgb Hct MCV MCH MCHC RDW Plt Count MPV Sodium Potassium Chloride Carbon Dioxide Anion Gap BUN Creatinine Est GFR ( Amer) Est GFR (Non-Af Amer) POC Glucose (mg/dL) 445 H* Random Glucose Calcium Urine Color Urine Clarity Urine pH Ur Specific [place] Urine Protein Urine Glucose (UA) Urine Ketones Urine Blood Urine Nitrate Urine Bilirubin Urine Urobilinogen Ur Leukocyte Esterase Urine WBC (Auto) Urine RBC (Auto) Ur Squamous Epith Cells Urine Bacteria Granular Casts (Auto) Assessment & Plan - Assessment and Plan (Free Text) Assessment: Palliative consult Full Code, there is no advance directive on chart, PPS 40% I reviewed medical records, all diagnostic studies, examined and interviewed patient in the bed Patient examined in chair, with legs elevated, in mild distress due to surgical pain. Pain worsens with slight mobility or touch. Oxycodone 5 mg Po PRN on board.The right hip dressing intact. There is very minimal upper thigh edema. PP present. Breathing is normal. Patient tolerates diet. BS > 400 today. Patient on Insulin sliding scale. BP 101/51, HR 103, afebrile, O2Sat 97 %. I attempted goals of care discussion with patient. Due to discomfort and mild confusion/forgetfulness it was not productive. I called patient' daughter X 2 snd left vice mails. Not call back yet. Impression * S/P right hip surgical repair 2nd to fracture * Mild surgical pain * Limited mobility * Tiredness * Hyperglycemia Suggestion * Promote comfort, pain control and safety * Monitor for signs of constipation * Maintain normo-glycemic state * Assist with ADLs Code staus to be discussed with daughter once she calls me back.
--- NOTE | 2017-11-13 18:26 | CP.PCM.PN ---
Subjective - Date & Time of Evaluation Date of Evaluation: 11/13/17 Time of Evaluation: 10:20 - Subjective Subjective: clinically same Objective - Vital Signs/Intake and Output Vital Signs (last 24 hours): Temp Pulse Resp BP Pulse Ox 98.2 F 94 H 20 128/64 95 11/13/17 15:17 11/13/17 16:29 11/13/17 15:17 11/13/17 15:17 11/13/17 15:17 Intake and Output: 11/13/17 11/13/17 06:59 18:59 Intake Total 450 300 Output Total 830 250 Balance -380 50 - Medications Medications: Current Medications Acetaminophen (Tylenol 325mg Tab) 650 mg PO Q8H [facility] Last Admin: 11/13/17 17:35 Dose: Not Given Divalproex Sodium (Depakote Sprinkles) 125 mg PO DAILY [facility] Last Admin: 11/13/17 09:39 Dose: 125 mg Docusate Sodium (Colace) 100 mg PO BID [facility] Last Admin: 11/13/17 17:24 Dose: 100 mg Donepezil HCl (Aricept) 5 mg PO HS [facility] Last Admin: 11/12/17 21:36 Dose: 5 mg Heparin Sodium (Porcine) (Heparin) 5,000 units SC Q12 [facility] Last Admin: 11/13/17 10:16 Dose: 5,000 units Insulin Aspart (Novolog) 0 unit SC [facility] PRN Reason: Protocol Last Admin: 11/13/17 17:27 Dose: 6 unit Insulin Glargine (Lantus) 8 unit SC [facility] Last Admin: 11/12/17 21:35 Dose: 8 unit Memantine (Namenda) 5 mg PO BID [facility] Last Admin: 11/13/17 17:24 Dose: 5 mg Metoprolol Succinate (Toprol Xl) 200 mg PO DAILY [facility] Last Admin: 11/13/17 09:37 Dose: Not Given Mirtazapine (Remeron) 15 mg PO [facility] Last Admin: 11/12/17 21:36 Dose: 15 mg Morphine Sulfate (Morphine) 2 mg IVP Q6 PRN PRN Reason: Pain, moderate (4-7) Last Admin: 11/10/17 18:28 Dose: 2 mg Oxycodone HCl (Oxycodone Immediate Release Tab) 5 mg PO Q6 PRN PRN Reason: Pain, moderate (4-7) Pantoprazole Sodium (Protonix Ec Tab) 40 mg PO DAILY [facility] Last Admin: 11/13/17 09:38 Dose: 40 mg Rosuvastatin Calcium (Crestor) 5 mg PO HS [facility] Last Admin: 11/12/17 21:36 Dose: 5 mg Tobramycin Sulfate (Tobrex 0.3% Ophth Soln) 2 drop OS Q6H [facility] Last Admin: 11/13/17 17:24 Dose: 2 drop Vitamin B Complex/Vit C/Folic Acid (Nephro-Jerson) 1 tab PO TID [facility] Last Admin: 11/13/17 17:24 Dose: 1 tab - Labs Labs: 11/13/17 07:13 11/13/17 07:13 PT 11.8 SECONDS (9.7-12.2) 11/08/17 14:14 INR 1.1 11/08/17 14:14 APTT 30 SECONDS (21-34) 11/08/17 14:14 - Constitutional Appears: Well - Head Exam Head Exam: ATRAUMATIC, NORMAL INSPECTION, NORMOCEPHALIC - Eye Exam Eye Exam: EOMI, Normal appearance, PERRL Pupil Exam: NORMAL ACCOMODATION, PERRL - ENT Exam ENT Exam: Mucous Membranes Moist, Normal Exam - Neck Exam Neck Exam: Full ROM, Normal Inspection. absent: Lymphadenopathy - Respiratory Exam Respiratory Exam: Decreased Breath Sounds - Cardiovascular Exam Cardiovascular Exam: REGULAR RHYTHM, +S1, +S2 - GI/Abdominal Exam GI & Abdominal Exam: Soft, Diminished Bowel Sounds - Rectal Exam Rectal Exam: Deferred
[2017-11-13] MEDS: (Lantus) Insulin Glargine, Recombinant SC SCH (22:09)
[2017-11-14] MEDS: Tobramycin 0.3% OPHT SOLN OS SCH ×3 (05:00→17:51)
--- NOTE | 2017-11-14 06:21 | CARD ---
APPROVED REPORT EKG Measurement Heart [id number] <Conclusion> Sinus rhythm with 1st degree AV block Left axis deviation Minimal voltage criteria for LVH, may be normal variant Anteroseptal infarct, age undetermined T wave abnormality, consider lateral ischemia Abnormal ECG
[2017-11-14 07:15] LABS: HEMOGLOBIN 9.8 g/dL (12.0-18.0); MEAN CELL VOLUME 92.1 fL (80.0-94.0); MEAN CORPUSCULAR HEMOGLOBIN 31.8 pg (27.0-31.0); MEAN CORPUSCULAR HGB CONC 34.5 g/dL (33.0-37.0); MEAN PLATELET VOLUME 7.3 fL (7.2-11.7); RBC 3.1 Mil/uL (4.40-5.90); WHITE BLOOD COUNT 11.3 K/uL (4.8-10.8)
--- NOTE | 2017-11-14 07:29 | CP.PCM.PN ---
Subjective - Date & Time of Evaluation Date of Evaluation: 11/14/17 Time of Evaluation: 07:27 - Subjective Subjective: Progress Note for Dr. Fox Patient seen and examined at the bedside. Nursing reports uncontrolled sugars. Patient reports pain well-controlled this AM. She is for dialysis this morning. Patient denies having fever, chills, shortness of breath, chest pain, nausea, vomiting, or diarrhea. Objective - Vital Signs/Intake and Output Vital Signs (last 24 hours): Temp Pulse Resp BP Pulse Ox 98.2 F 92 H 20 128/64 95 11/13/17 15:17 11/13/17 23:30 11/13/17 15:17 11/13/17 15:17 11/13/17 15:17 Intake and Output: 11/14/17 11/14/17 06:59 18:59 Output Total 650 Balance -650 - Medications Medications: Current Medications Acetaminophen (Tylenol 325mg Tab) 650 mg PO Q8H [facility] Last Admin: 11/14/17 02:30 Dose: 650 mg Divalproex Sodium (Depakote Sprinkles) 125 mg PO DAILY [facility] Last Admin: 11/13/17 09:39 Dose: 125 mg Docusate Sodium (Colace) 100 mg PO BID [facility] Last Admin: 11/13/17 17:24 Dose: 100 mg Donepezil HCl (Aricept) 5 mg PO HS [facility] Last Admin: 11/13/17 21:30 Dose: 5 mg Heparin Sodium (Porcine) (Heparin) 5,000 units SC Q12 [facility] Last Admin: 11/13/17 21:30 Dose: 5,000 units Insulin Aspart (Novolog) 0 unit SC ACHS [facility] PRN Reason: Protocol Last Admin: 11/13/17 22:09 Dose: 3 unit Insulin Glargine (Lantus) 8 unit SC HS [facility] Last Admin: 11/13/17 22:09 Dose: 8 unit Memantine (Namenda) 5 mg PO BID [facility] Last Admin: 11/13/17 17:24 Dose: 5 mg Metoprolol Succinate (Toprol Xl) 200 mg PO DAILY [facility] Last Admin: 11/13/17 09:37 Dose: Not Given Mirtazapine (Remeron) 15 mg PO HS [facility] Last Admin: 11/13/17 21:30 Dose: 15 mg Morphine Sulfate (Morphine) 2 mg IVP Q6 PRN PRN Reason: Pain, moderate (4-7) Last Admin: 11/10/17 18:28 Dose: 2 mg Oxycodone HCl (Oxycodone Immediate Release Tab) 5 mg PO Q6 PRN PRN Reason: Pain, moderate (4-7) Pantoprazole Sodium (Protonix Ec Tab) 40 mg PO DAILY [facility] Last Admin: 11/13/17 09:38 Dose: 40 mg Rosuvastatin Calcium (Crestor) 5 mg PO HS [facility] Last Admin: 11/13/17 21:30 Dose: 5 mg Tobramycin Sulfate (Tobrex 0.3% Ophth Soln) 2 drop OS Q6H [facility] Last Admin: 11/14/17 05:00 Dose: 2 drop Vitamin B Complex/Vit C/Folic Acid (Nephro-Jerson) 1 tab PO TID [facility] Last Admin: 11/13/17 17:24 Dose: 1 tab - Labs Labs: 11/14/17 06:51 11/13/17 07:13 PT 11.8 SECONDS (9.7-12.2) 11/08/17 14:14 INR 1.1 11/08/17 14:14 APTT 30 SECONDS (21-34) 11/08/17 14:14 - Additional Findings Additional findings: - Constitutional Appears: Non-toxic - Head Exam Head Exam: NORMAL INSPECTION - Eye Exam Eye Exam: Normal appearance - ENT Exam ENT Exam: Mucous Membranes Moist - Neck Exam Neck Exam: Full ROM - Respiratory Exam Respiratory Exam: NORMAL BREATHING PATTERN - Cardiovascular Exam Cardiovascular Exam: REGULAR RHYTHM - GI/Abdominal Exam GI & Abdominal Exam: Normal Bowel Sounds - Rectal Exam Rectal Exam: Deferred - Extremities Exam Extremities Exam: Full ROM - Back Exam Back Exam: NORMAL INSPECTION - Neurological Exam Neurological Exam: Alert, Oriented x3 - Psychiatric Exam Psychiatric exam: Normal Affect - Skin Skin Exam: Normal Color Assessment and Plan - Assessment and Plan (Free Text) Plan: Right hip fracture Admit to tele -s/p right hip nailing POD #2 -Follow ortho recommendations -Oxycodone 5mg Q6 prn -Incentive spirometry -Continue PT Dr Lopez, Associate Research Scientist - help appreciated - normal LV function on ECHO - recommend resumption of antiplatelet therapy when feasible surgically Urinary Retention -Urology consulted, help appreciated -Patient reports to be passing urine Urine culture negative ESRD -Dialysis MWF HTN -Metoprolol 200mg DM -Insulin Glargine 8u HS -ISS CAD -Metoprolol 200mg -Crestor 5mg - ECHO WNL Dementia -Aricept 5mg po HS -Memantine 5mg BID Prophylactic measures -Heparin 5000u SC Q12 -SCD -Protonix 40mg -Colace -PT -Palliative consult Dispo: pending authorization to [facility] For dialysis today. All management per Dr. Fox
[2017-11-14] MEDS: (Novolog) Insulin Aspart, Recombinant 100 u/ml 10 ml vial SC SCH ×3 (08:15→17:52)
[2017-11-14 08:29] LABS: CALCIUM 8.1 mg/dl (8.6-10.4)
[2017-11-14] MEDS: Multivitamin Vitamin B Complex (Nephro-Vite) Tab PO SCH ×3 (10:00→17:50)
[2017-11-14 10:23] VITALS: RESP 18
[2017-11-14] MEDS: Divalproex 125 mg Sprinkle Capsule PO SCH (14:16)
[2017-11-14] MEDS: Metoprolol Succinate 100 mg XL Tab PO SCH (14:16)
[2017-11-14] MEDS: Pantoprazole 40 mg EC Tab PO SCH (14:17)
[2017-11-14 16:52] VITALS: BP 156/69; PULSE 89; TEMP 98.2; O2SAT 100
--- NOTE | 2017-11-14 19:17 | CP.PCM.PN ---
Subjective - Date & Time of Evaluation Date of Evaluation: 11/14/17 Time of Evaluation: 10:00 - Subjective Subjective: clinically same Objective - Vital Signs/Intake and Output Vital Signs (last 24 hours): Temp Pulse Resp BP Pulse Ox 98.2 F 89 18 156/69 H 100 11/14/17 16:00 11/14/17 16:00 11/14/17 16:00 11/14/17 16:00 11/14/17 16:00 Intake and Output: 11/14/17 11/15/17 18:59 06:59 Output Total 300 Balance -300 - Medications Medications: Current Medications Acetaminophen (Tylenol 325mg Tab) 650 mg PO Q8H [facility] Last Admin: 11/14/17 17:50 Dose: 650 mg Aspirin (Aspirin Chewable) 81 mg PO DAILY [facility] Clopidogrel Bisulfate (Plavix) 75 mg PO DAILY [facility] Divalproex Sodium (Depakote Sprinkles) 125 mg PO DAILY [facility] Last Admin: 11/14/17 14:16 Dose: 125 mg Docusate Sodium (Colace) 100 mg PO BID [facility] Last Admin: 11/14/17 17:50 Dose: 100 mg Donepezil HCl (Aricept) 5 mg PO HS [facility] Last Admin: 11/13/17 21:30 Dose: 5 mg Heparin Sodium (Porcine) (Heparin) 5,000 units SC Q12 [facility] Last Admin: 11/14/17 10:00 Dose: Not Given Insulin Aspart (Novolog) 0 unit SC ACHS [facility] PRN Reason: Protocol Last Admin: 11/14/17 17:52 Dose: 2 unit Insulin Glargine (Lantus) 8 unit SC [facility] Last Admin: 11/13/17 22:09 Dose: 8 unit Memantine (Namenda) 5 mg PO BID [facility] Last Admin: 11/14/17 17:50 Dose: 5 mg Metoprolol Succinate (Toprol Xl) 200 mg PO DAILY [facility] Last Admin: 11/14/17 14:16 Dose: 200 mg Mirtazapine (Remeron) 15 mg PO HS [facility] Last Admin: 11/13/17 21:30 Dose: 15 mg Morphine Sulfate (Morphine) 2 mg IVP Q6 PRN PRN Reason: Pain, moderate (4-7) Last Admin: 11/10/17 18:28 Dose: 2 mg Oxycodone HCl (Oxycodone Immediate Release Tab) 5 mg PO Q6 PRN PRN Reason: Pain, moderate (4-7) Last Admin: 11/14/17 09:02 Dose: 5 mg Pantoprazole Sodium (Protonix Ec Tab) 40 mg PO DAILY [facility] Last Admin: 11/14/17 14:17 Dose: 40 mg Rosuvastatin Calcium (Crestor) 5 mg PO HS [facility] Last Admin: 11/13/17 21:30 Dose: 5 mg Tobramycin Sulfate (Tobrex 0.3% Ophth Soln) 2 drop OS Q6H [facility] Last Admin: 11/14/17 17:51 Dose: 2 drop Vitamin B Complex/Vit C/Folic Acid (Nephro-Jerson) 1 tab PO TID [facility] Last Admin: 11/14/17 17:50 Dose: 1 tab - Labs Labs: 11/14/17 06:51 11/14/17 06:51 PT 11.8 SECONDS (9.7-12.2) 11/08/17 14:14 INR 1.1 11/08/17 14:14 APTT 30 SECONDS (21-34) 11/08/17 14:14 - Constitutional Appears: Well - Head Exam Head Exam: ATRAUMATIC, NORMAL INSPECTION, NORMOCEPHALIC - Eye Exam Eye Exam: EOMI, Normal appearance, PERRL Pupil Exam: NORMAL ACCOMODATION, PERRL - ENT Exam ENT Exam: Mucous Membranes Moist, Normal Exam - Neck Exam Neck Exam: Full ROM, Normal Inspection. absent: Lymphadenopathy - Respiratory Exam Respiratory Exam: Decreased Breath Sounds - Cardiovascular Exam Cardiovascular Exam: REGULAR RHYTHM, +S1, +S2 - GI/Abdominal Exam GI & Abdominal Exam: Soft, Diminished Bowel Sounds - Rectal Exam Rectal Exam: Deferred
--- NOTE | 2017-11-24 10:03 | OP ---
PROCEDURE DATE: 11/12/2017 PREOPERATIVE DIAGNOSIS: Right hip displaced intertrochanteric hip fracture. POSTOPERATIVE DIAGNOSIS: Right hip displaced intertrochanteric hip fracture. PROCEDURE: Right hip displaced intertrochanteric hip fracture closed reduction and internal fixation with long hip nail. SURGEON: Raf Leon MD ACCOUNTING MACHINE SERVICER: Clotilde King PA-C JUSTIFICATION FOR ACCOUNTING MACHINE SERVICER: Clotilde King is a certified physician bakery assistant whose skilled surgical services were an absolute necessity for successful completion of the procedure as he provided skilled surgical assistance with positioning of the patient, positioning extremity, management of surgical field, retraction of neurovascular structures, maintenance of fracture reduction, positioning of patient on fracture table and careful transfer back and forth, facilitating fracture reduction and maintaining fracture reduction, placement of internal fixation hardware, placement of helical blade, placement of distal interlocking screws, wound closure, careful transfer back to the patient's bed and PACU. Clotilde King was present for the entire case and was an absolute necessity for successful completion of the procedure. ANESTHESIA: General endotracheal anesthesia. SPECIMENS: None. ESTIMATED BLOOD LOSS: 200 mL. COMPLICATIONS: None. DRAINS: None. IMPLANTS: [employer] long TFNA nail, 400 mm length and 11 mm width; 90-mm length helical blade; two distal interlocking screws, 5 mm width; proximal screw measuring 46 mm length; and distal screw measuring 50 mm length. INDICATIONS FOR SURGERY: The patient is a 77-year-old male with multiple past medical history including baseline dementia and known coronary artery disease who presented to the emergency room at [facility] on 11/08/2017, with right hip pain and inability to weight bear on right lower extremity. The patient's family states that on 11/08/2017, the patient was at home when he fell from standing. There was no witnessed syncopal episode or loss of control that led to the fall. The patient ambulates at baseline with a walker at home, but outside of the house is wheelchair ambulation. X-ray is taken in the ER and after evaluation by ER staff, he was diagnosed with a displaced right hip intertrochanteric hip fracture. He was admitted to the medical service under Dr. Ting Fox for definitive treatment. Orthopedic consultation was placed, and I evaluated the patient as an inpatient. After reviewing the imaging with the patient's family and explained to them treatment options as well as the general accepted indications for surgery with intertrochanteric hip fractures. The risks, benefits, and alternatives of the procedure were discussed at length with the family with the risks including but not limited to infection, neurovascular damage, need for further surgery, failure of surgery, failure of implant, need for conversion to total hip arthroplasty, development of chronic pain and disability, development of blood clots including DVT and PE, inability to return to the preinjury level of activity, anesthesia reactions, , perioperative cardiopulmonary compromise. After answering all of their questions, they stated that they understood the risks and wished to proceed with the surgery. Medical clearance and cardiac clearance were obtained. Unfortunately, the patient was admitted over a holiday weekend, and we had to wait for an echo to be done in order to safely provide safe cardiology clearance, which was eventually obtained, and the patient underwent the procedure on 11/12/2017. PROCEDURE IN DETAIL: The patient was identified in the preoperative holding area, and the right hip was marked for surgery. Once again as described above, the risks, benefits and alternatives of the procedure were discussed at length with the patient and his family, and an informed consent was obtained from his son. The patient has baseline dementia and waxes and wanes, and the son has been signing for any treatment consent. After a brief discussion with the anesthesia staff, perioperative IV antibiotics in the form of 2 g of Ancef were administered. The patient was taken to the operating room, placed on the well-padded operating room table with all bony prominences and superficial neurovascular structures well padded. General anesthesia was administered without any difficulty or complication. We then proceeded to secure the patient to the fracture top table. The right lower extremity was well padded and placed in the traction boot. The left lower extremity was well padded and placed in a well leg christie in flexion and abduction to allow for x-ray machine access in the groin. The left upper extremity was secured to the well-padded arm board. The right upper extremity was brought over his chest and well padded with egg crate padding to secure, and the arm was secured across his chest. The right hip and thigh was brought into view, and the table was prepared for fluoroscopic imaging. A final time-out was done with the surgeon, anesthesia staff, OR staff and all in agreement with the patient, procedure being done and extremity being operated on. With the use of biplanar and dynamic fluoroscopic imaging, a closed reduction attempt was carried out. The pre-reduction fluoroscopic imaging confirmed that there was a displaced intertrochanteric right hip fracture with extension beyond the level of the lesser trochanter. The patient had a history of multiple falls, and therefore decision was made to proceed with placement of a long hip nail to protect the rest of the femur and prevent as much as possible future periprosthetic fracture. Once again, a closed reduction maneuver was carried out with traction and internal rotation, and an anatomic reduction of the IT hip fracture was successfully obtained. The right thigh and hip were then prepped and draped in a standard sterile fashion with the shower curtain drape in position. A guidewire was then used to confirm the proximal entry point for the nail with the tip of the greater trochanter. A stab incision was made to skin as the guidewire was advanced, and biplanar fluoroscopic imaging was used to confirm optimal entry point at the tip of the greater trochanter. A 3-cm incision was made to the skin, down the subcutaneous tissue and maintained a good hemostasis down to the level of the iliotibial band. The guidewire was advanced further to the level of the lesser trochanter, and biplanar fluoroscopic imaging confirmed that the wire was in a good position. Proximal reamer for the nail was then advanced over the guidewire with the soft tissue protector in position. The proximal aspect of the femur was reamed for the entry of the nail. The guidewire was removed, and a flexible beaded-tip guidewire was then placed all the way to the superior pole of the patella. Measurement for the length of the 11 mm nail was then taken, and 400 mm length was obtained. Flexible reamers were then sequentially passed starting at 9 mm up to 13 mm over the beaded-tip guidewire to ream the path for the nail. Once we got to 13 mm with good chatter, the flexible reamer was removed, and the 11 mm width and 400 mm length long TFNA nail from [employer] was then advanced over the beaded-tip guidewire until it was in a good position along the superior pole of the patella within the intramedullary canal. Optimal entry point for the helical blade placement was identified and with the use of the triple-sleeve cannula in position, a small laterally based incision to access the proximal lateral femur made. The triple-sleeve cannula was advanced until there was snug on the lateral proximal femoral bone. Guidewire was advanced. There found to be center-center on the femoral head with good tip to apex distance maintained. A 90-mm helical blade was placed center-center with good tip to apex distance maintained, and biplanar fluoroscopic imaging confirming good placement. Attention was then turned towards placement of two distal interlocking screws with perfect [place] technique employed. Using perfect [place] technique, two drill beds were advanced through the proximal static hole and the proximal dynamic hole at the distal interlocking holes for the long TFNA nail. The drill beds were advanced through the near cortex and into the far cortex, and screw measurements were taken. A 46 mm length and 5 mm width screw was placed bicortically with good fixation at the proximal static hole distally for the interlocking screws. A 50-mm screw was placed at the distal oblong dynamic hole. Both screws were placed bicortically and confirmed with biplanar fluoroscopic imaging to be in good position and through the nail. All wounds were copiously irrigated. The distal interlocking screw wounds were then reapproximated with 2-0 Vicryl suture followed by jt for skin. The two proximal wounds were reapproximated with #1 Vicryl suture for fascia followed by a 2-0 Vicryl suture for subcutaneous tissue followed by jt for skin. Sterile dressings were applied. Final fluoroscopic biplanar and dynamic imaging was taken of the knee, the femoral shaft, and the hip showing that the fracture anatomic reduction was maintained and the hardware was in good position with adequate lengths. Once final imaging was taken, the patient was then transferred back to his hospital stretcher and transferred to PACU in stable condition after being extubated from general anesthesia. DISPOSITION: The patient will remain as an inpatient for few days until he works with case management, social insurance adviser, and physical therapy to determine optimal placement on discharge. He will be weightbearing as tolerated without any restrictions. He will work with physical therapy for ambulation and transfers. He will receive adequate pain control. He will be started on DVT prophylaxis starting postoperative day #1. I will monitor his progress as an inpatient. Raf Leon MD [facility] # [id number] SON[facility]
== END 2017-11-14 19:44 | DRG 480 ==
LOC: C.ER 12:04 → C.9E 14:12 → C.6T 15:48
PROVIDERS: ADMIT Internal Medicine Nephrology; ATTEND Internal Medicine Nephrology
PROC: 5A1D70Z Performance of Urinary Filtration, Intermittent, Less than 6 Hours Per Day (ICD-10-PCS; 2017-11-10)
PROC: 30233N1 Transfusion of Nonautologous Red Blood Cells into Peripheral Vein, Percutaneous Approach (ICD-10-PCS; 2017-11-12)
PROC: 0QS634Z Reposition Right Upper Femur with Internal Fixation Device, Percutaneous Approach (ICD-10-PCS; principal; 2017-11-12 07:30)
PROC: 5A1D70Z Performance of Urinary Filtration, Intermittent, Less than 6 Hours Per Day (ICD-10-PCS; 2017-11-14)
DX: S72.141A Displaced intertrochanteric fracture of right femur, initial encounter for closed fracture (principal); N18.6 End stage renal disease; I12.0 Hypertensive chronic kidney disease with stage 5 chronic kidney disease or end stage renal disease; D64.9 Anemia, unspecified; E11.22 Type 2 diabetes mellitus with diabetic chronic kidney disease; E11.65 Type 2 diabetes mellitus with hyperglycemia; I25.10 Atherosclerotic heart disease of native coronary artery without angina pectoris; M85.80 Other specified disorders of bone density and structure, unspecified site; R29.6 Repeated falls; W01.0XXA Fall on same level from slipping, tripping and stumbling without subsequent striking against object, initial encounter; Y92.009 Unspecified place in unspecified non-institutional (private) residence as the place of occurrence of the external cause; Z99.2 Dependence on renal dialysis; Z79.4 Long term (current) use of insulin; I25.2 Old myocardial infarction; Z91.81 History of falling

== ENCOUNTER 2017-11-19 12:12 | Inpatient (IN) | payer MEDICARE, MEDICAID ==
[2017-11-19 13:38] LABS: BASO # 0.2 K/uL (0.0-0.2); BASO % 1.1 % (0.0-2.0); EOS # 0.3 K/uL (0.0-0.7); EOS % 1.8 % (0.0-4.0); HEMOGLOBIN 10.4 g/dL (12.0-18.0); LYMPH # 1.8 K/uL (1.0-4.3); LYMPH % 11.4 % (20.0-40.0); MEAN CORPUSCULAR HEMOGLOBIN 29.9 pg (27.0-31.0); MEAN CORPUSCULAR HGB CONC 32.5 g/dL (33.0-37.0); MEAN PLATELET VOLUME 6.7 fL (7.2-11.7); MONO % 6.2 % (0.0-10.0); NEUT # 12.3 K/uL (1.8-7.0); NEUT % 79.5 % (50.0-75.0); NRBC % 0.1 % (0.0-2.0); RBC 3.46 Mil/uL (4.40-5.90); RED CELL DISTRIBUTION WIDTH 16.8 % (11.5-14.5); WHITE BLOOD COUNT 15.5 K/uL (4.8-10.8)
[2017-11-19 13:44] LABS: INR 1.1; PROTHROMBIN TIME 12.4 SECONDS (9.7-12.2)
--- NOTE | 2017-11-19 13:47 | RAD ---
PROCEDURE: CHEST RADIOGRAPH, 1 VIEW HISTORY: SOB COMPARISON: Chest radiograph dated 11/08/2017. FINDINGS: LUNGS: Stable chronic prominence of the bilateral interstitial markings with superimposed pulmonary vascular congestion. No focal consolidation. PLEURA: No pneumothorax or pleural fluid seen. CARDIOVASCULAR: Atherosclerotic aortic calcifications. Cardiomediastinal silhouette stably enlarged. OSSEOUS STRUCTURES: Unchanged. VISUALIZED UPPER ABDOMEN: Normal. OTHER FINDINGS: None. IMPRESSION: Stable chronic prominence of the bilateral interstitial markings with superimposed pulmonary vascular congestion. No focal consolidation or pleural effusion.
--- NOTE | 2017-11-19 13:49 | C.PDOC ---
History Of Present Illness 77yo male, brought to ER from dialysis for evaluation of altered mental status. Patient was noted to be sleepy and was "in and out" of consciousness. Family present at bedside and report the patient has had several such episodes since Friday. Patient has a history of dementia but typically at baseline he is awake, alert, able to recognize people and is able to converse; per family patient's current presentation is different. Patient is s/p a right hip fracture repair performed at [facility] by Dr. Mitchel Sims approx 1 week ago. Patient is currently in subacute rehab (due to the hip fracture). PMD: Dr. London Fox (as per family) nephrology: Dr. Martinez Antoine Time Seen by Provider: 11/19/17 13:04 Chief Complaint (Nursing): Altered Mental Status History Per: EMS, Family History/Exam Limitations: clinical condition Onset/Duration Of Symptoms: Days (3) Current Symptoms Are (Timing): Still Present Severity: Moderate Past Medical History Reviewed: Historical Data, Nursing Documentation, Vital Signs Vital Signs: Last Vital Signs Temp 98.4 F 11/21/17 07:15 Pulse 103 H 11/21/17 07:15 Resp 20 11/21/17 07:15 BP 155/63 H 11/21/17 07:15 Pulse Ox 95 11/21/17 07:15 - Medical History PMH: Anemia, Arthritis, Dementia, HTN Other Surgeries: right hip fracture repair - [facility] (11/08/17) REPOSITION RIGHT UPPER FEMUR WITH INT FIX, PERC APPROACH (11/08/17) TRANSFUSE NONAUT RED BLOOD CELLS IN PERIPH VEIN, PERC (11/08/17) Family History: States: No Known Family Hx - Social History Hx Tobacco Use: No Hx Alcohol Use: No Hx Substance Use: No - Immunization History Hx Tetanus Toxoid Vaccination: No Hx Influenza Vaccination: No Hx Pneumococcal Vaccination: No Review Of Systems Review Of Systems: ROS cannot be obtained secondary to pt's inabilty to answer questions. (altered mental status) Neurological: Positive for: Altered Mental Status Physical Exam - Physical Exam Appears: Non-toxic, Confused, Chronically Ill Skin: Warm, Dry Head: Atraumatic, Normacephalic Eye(s): bilateral: Normal Inspection, PERRL, EOMI Oral Mucosa: Dry Tongue: Fissured (dry and fissured) Neck: Supple Chest: Symmetrical Cardiovascular: Rhythm Irregular (occasionally irregular and tachycardic) Respiratory: Normal Breath Sounds, Rales (mild at bases), No Rhonchi, No Wheezing Gastrointestinal/Abdominal: Normal Exam, Bowel Sounds, Soft, No Tenderness Extremity: No Pedal Edema, Other (right radial AV fistula with palpable thrill) Neurological/Psych: No Oriented x3, No Normal Speech, No Normal Cognition, Normal Motor, Normal Reflexes, Other (awake but confused, mumbling, moving all 4 extremities spontaneously, occasional spastic involuntary movements of upper extrmities) ED Course And Treatment - Laboratory Results Result Diagrams: 11/20/17 16:43 11/20/17 16:43 ECG: Interpreted By Me, Viewed By Me (atrial fibrillation with RVR at 114bpm, left axis deviation, Q wave V3, no acute ST changes) ECG Interpretation: Abnormal O2 Sat by Pulse Oximetry: 96 (RA) Pulse Ox Interpretation: Normal - Radiology CXR: Interpreted by Me, Viewed By Me CXR Interpretation: Yes: Other (pulmonary vascular congestion, no infiltrates) - CT Scan/US CT HEAD Other Rad Studies (CT/US): Read By Radiologist, Radiology Report Reviewed CT/US Interpretation: Accession No. : [id number]. Patient Name / ID : BRODY BRAVO / [id number]. Exam Date : 11/19/2017 14:48:48 ( Approved ). Study Comment : Sex / Age : M / 77Y. Creator : Christine Murphy. Dictator : Aries Moreno MD. Supervisor [employer] : Financial Coach : Aries Moreno MD. Approver2 : Report Date : 11/19/2017 14:56:17. My Comment : . PROCEDURE: CT HEAD WITHOUT CONTRAST. HISTORY: AMS. COMPARISON: None available. TECHNIQUE: Axial computed tomography images were obtained through the head/ brain without intravenous contrast. Radiation dose: Total exam DLP = 935.6 mGy -cm. This CT exam was performed using one or more of the following dose reduction techniques: Automated exposure control, adjustment of the mA and/or kV according to patient size, and/or use of iterative reconstruction technique. FINDINGS: HEMORRHAGE: No intracranial hemorrhage. BRAIN: No mass effect or edema. Atrophy. Chronic microvascular ischemic changes. Left basal ganglia, left thalamic and left pontine lacunar infarctions. VENTRICLES: Prominent. No hydrocephalus. CALVARIUM: Unremarkable. PARANASAL SINUSES: Unremarkable as visualized. No significant inflammatory changes. MASTOID AIR CELLS: Unremarkable as visualized. No inflammatory changes. OTHER FINDINGS: None. IMPRESSION: No acute intracranial pathology. CTA CHEST Other Rad Studies (CT/US): Read By Radiologist, Radiology Report Reviewed CT/US Interpretation: Accession No. : [id number]. Patient Name / ID : BRODY BRAVO / [id number]. Exam Date : 11/19/2017 14:54:07 ( Approved ). Study Comment : Sex / Age : M / 77Y. Creator : Christine Murphy. Dictator : Aries Moreno MD. Supervisor [employer] : Financial Coach : Aries Moreno MD. Approver2 : Report Date : 11/19/2017 15:06:34. My Comment : . PROCEDURE: CT Chest with contrast (Pulmonary Angiogram). HISTORY: SOB, POSTOP, R./O PE , ESRD PATIENT, WILL NEED HD. COMPARISON: None available. TECHNIQUE: Axial computed tomography images were obtained of the chest in the pulmonary arterial phase of enhancement. Coronal and sagittal reformatted images were created and reviewed. Intravenous contrast dose: 100 mL Visipaque 320. Radiation dose: Total exam DLP = 490.5 mGy-cm. This CT exam was performed using one or more of the following dose reduction techniques: Automated exposure control, adjustment of the mA and/or kV according to patient size, and/or use of iterative reconstruction technique. FINDINGS: PULMONARY ARTERIES: Unremarkable. No pulmonary embolism. AORTA: No acute findings. Atherosclerotic aortic calcification No thoracic aortic aneurysm. LUNGS: Interstitial thickening. Pulmonary vascular congestion. Small bilateral 2-4 mm subpleural nodule. No mass or pulmonary consolidation. PLEURAL SPACES: Small bilateral pleural effusions. No pneumothorax. HEART: Cardiomegaly. Coronary arterial and valvular calcifications. No significant pericardial effusion. LYMPH NODES: Multiple prominent lymph nodes that do not meet size criteria for lymphadenopathy. BONES, CHEST WALL: Gynecomastia. Partially imaged age indeterminate compression fracture of L1. No destructive lesion. OTHER FINDINGS: Cholelithiasis. Bilateral nodular adrenal thickening. 1.9 cm exophytic left upper pole structure that cannot be characterized as a cyst (36 HU). Chronic pancreatitis. IMPRESSION: Unremarkable CT pulmonary angiogram. No pulmonary embolus. Small/trace bilateral pleural effusions. Small bilateral 2-4 mm subpleural nodules. Partially imaged in digit age- indeterminate compression fracture of L1. Cholelithiasis. 1.9 cm exophytic left upper pole structure that cannot be characterized as a simple cyst. Additional findings as above. Progress Note: Blood work, CXR, UA, CT head abnd CTA chest ordered and reviewed. Patient given small IV NS bolus due to clinical signs of dehydration. PO Cardizem given for A fiv with RVR. Spoke with patient's medical imaging tech Dr. Martinez Antoine, he does not come to [facility] but is covered here by Dr. Escalona. He states patient was confused, lethargic and hypoxic during dialysis today, of which he got half of. He confirms prior history of atrial fibrillation. 3:45PM - Patient has leukocytosis +AMS without obvious infectious source - olivia start on broad spectrum antibiotics empirically. - Physician Consult Information Physician Contacted: Christy Fox Outcome Of Conversation: Discussed patient with PMD, agrees with admission for AMS, A fib with RVR, pleural effusions, CHF exacerbation. Neuro consult Dr. Smith entered. Dr. Escalona spoken with and in ED to see patient and set up dialysis. Disposition - Disposition Disposition: HOSPITALIZED Disposition Time: 15:38 Condition: FAIR - Clinical Impression Clinical Impression: Altered mental status, Pleural effusion, CHF exacerbation, ESRD (end stage renal disease) on dialysis - Scribe Statement The provider has reviewed the documentation as recorded by the Scribe (Suellen Garrison) Provider Attestation: All medical record entries made by the Scribe were at my direction and personally dictated by me. I have reviewed the chart and agree that the record accurately reflects my personal performance of the history, physical exam, medical decision making, and the department course for this patient. I have also personally directed, reviewed, and agree with the discharge instructions and disposition. Decision To Admit - Pt Status Changed To: Hospital Disposition Of: Inpatient - Admit Certification Admit to Inpatient:: After my assessment, the patient will require hospitalization for at least two midnights. This is because of the severity of symptoms shown, intensity of services needed, and/or the medical risk in this patient being treated as an outpatient. - InPatient: Physician Admission Certification:: see notes - . Bed Request Type: Telemetry Admitting Physician: Christy Fox Patient Diagnosis: Altered mental status, ESRD (end stage renal disease) on dialysis, Pleural effusion, CHF exacerbation
[2017-11-19 13:50] LABS: ALB/GLOB RATIO 0.8 (1.0-2.1); ALBUMIN 3.2 g/dL (3.5-5.0)
[2017-11-19 13:54] LABS: CALCIUM 8.6 mg/dl (8.6-10.4)
[2017-11-19] MEDS ORDERED: Sodium Chloride 0.9% 250 ML IV ONE ×2 (14:01→14:06)
[2017-11-19 14:04] LABS: CK-MB 0.7 ng/mL (0.0-3.38); TROPONIN I 0.055 ng/mL (0.00-0.120)
[2017-11-19] MEDS ORDERED: Iodixanol 320 MG/ML 100 ML BOTTLE IV ONE (14:32)
[2017-11-19 14:46] LABS: URINE BILIRUBIN NEGATIVE (NEGATIVE); URINE BLOOD NEGATIVE (NEGATIVE); URINE CLARITY Hazy (Clear); URINE COLOR Yellow (YELLOW); URINE GLUCOSE (UA) 3+ mg/dL (Normal); URINE LEUKOCYTE ESTERASE NEG Leu/uL (Negative); URINE PROTEIN 2+ mg/dL (NEGATIVE); URINE UROBILINOGEN NORMAL mg/dL (0.2-1.0)
--- NOTE | 2017-11-19 15:03 | CT ---
PROCEDURE: CT HEAD WITHOUT CONTRAST. HISTORY: AMS COMPARISON: None available. TECHNIQUE: Axial computed tomography images were obtained through the head/brain without intravenous contrast. Radiation dose: Total exam DLP = 935.6 mGy-cm. This CT exam was performed using one or more of the following dose reduction techniques: Automated exposure control, adjustment of the mA and/or kV according to patient size, and/or use of iterative reconstruction technique. FINDINGS: HEMORRHAGE: No intracranial hemorrhage. BRAIN: No mass effect or edema. Atrophy. Chronic microvascular ischemic changes. Left basal ganglia, left thalamic and left pontine lacunar infarctions. VENTRICLES: Prominent. No hydrocephalus. CALVARIUM: Unremarkable. PARANASAL SINUSES: Unremarkable as visualized. No significant inflammatory changes. MASTOID AIR CELLS: Unremarkable as visualized. No inflammatory changes. OTHER FINDINGS: None. IMPRESSION: No acute intracranial pathology.
--- NOTE | 2017-11-19 15:17 | CT ---
PROCEDURE: CT Chest with contrast (Pulmonary Angiogram) HISTORY: SOB, POSTOP, R./O PE, ESRD PATIENT, WILL NEED HD COMPARISON: None available. TECHNIQUE: Axial computed tomography images were obtained of the chest in the pulmonary arterial phase of enhancement. Coronal and sagittal reformatted images were created and reviewed. Intravenous contrast dose: 100 mL Visipaque 320 Radiation dose: Total exam DLP = 490.5 mGy-cm. This CT exam was performed using one or more of the following dose reduction techniques: Automated exposure control, adjustment of the mA and/or kV according to patient size, and/or use of iterative reconstruction technique. FINDINGS: PULMONARY ARTERIES: Unremarkable. No pulmonary embolism. AORTA: No acute findings. Atherosclerotic aortic calcification No thoracic aortic aneurysm. LUNGS: Interstitial thickening. Pulmonary vascular congestion. Small bilateral 2-4 mm subpleural nodule. No mass or pulmonary consolidation. PLEURAL SPACES: Small bilateral pleural effusions. No pneumothorax. HEART: Cardiomegaly. Coronary arterial and valvular calcifications. No significant pericardial effusion. LYMPH NODES: Multiple prominent lymph nodes that do not meet size criteria for lymphadenopathy. BONES, CHEST WALL: Gynecomastia. Partially imaged age indeterminate compression fracture of L1. No destructive lesion OTHER FINDINGS: Cholelithiasis. Bilateral nodular adrenal thickening. 1.9 cm exophytic left upper pole structure that cannot be characterized as a cyst (36 HU). Chronic pancreatitis. IMPRESSION: Unremarkable CT pulmonary angiogram. No pulmonary embolus. Small/trace bilateral pleural effusions. Small bilateral 2-4 mm subpleural nodules. Partially imaged in digit age-indeterminate compression fracture of L1. Cholelithiasis. 1.9 cm exophytic left upper pole structure that cannot be characterized as a simple cyst. Additional findings as above.
[2017-11-19 15:48] LABS: ABG ALLEN TEST POS; ARTERIAL BLOOD GAS HCO3 30.5 mmol/L (21-28); ARTERIAL BLOOD GAS O2 SAT 98.2 % (95-98); ARTERIAL BLOOD GAS PCO2 48 mm/Hg (35-45); ARTERIAL BLOOD GAS PH 7.44 (7.35-7.45); ARTERIAL BLOOD GAS PO2 93 mm/Hg (80-100); ARTERIAL BLOOD GAS TCO2 34.1 mmol/L (22-28)
[2017-11-19] MEDS ORDERED: Vancomycin 1 GM 1 GM/250 ML BAG IV STA (15:57)
[2017-11-19] MEDS ORDERED: Cefepime 1 GM in Sodium Chloride 0.9% 50 ML IVPB STA (15:58)
[2017-11-19] MEDS ORDERED: Moxifloxacin IV 400mg/250ml NS 400 MG/250 ML BAG IV ONE (15:59)
--- NOTE | 2017-11-19 16:42 | CP.PCM.CON ---
History of Present Illness - History of Present Illness History of Present Illness: Initial Nephrology Consultation: Assessment: critical Hypoxic respi failure with pulm congestion/effusions AMS ? cause (r/o infection as etiology) A fib with RVR Diabetic chronic Kidney Disease (E11.22) Hypertensive Chronic Kidney Disease (I12.0) End stage renal disease (N18.6) dependence on hemodialysis (Z99.2) (MWF) via AVF Anemia (D64.9), Hyperphosphatemia (E83.39), Secondary Hyperparathyroidism (E21.1 ), HTN (I12.0) Plan: in view of Hypoxia with pulm congestion/effusions, Will attempt for HD today as ordered. Continue with Nephrovite 1 tab/day. PRBC as needed for anemia. On JOSE CARLOS as epogen with HD, last Hb 10.4 Continue with phos binders home dose, check phos level BP control with meds as ordered. Patient not on RAAS brianne as BP tends to be low side Glycemic control, Dialysis consistent diet Further work up/management as per primary team Dose meds/antibiotics for ESRD status. Avoid fleets enema/magnesium based laxatives. Neuro evaluation. Thanks for allowing me to participate in care of your patient. Will follow patient with you. Please call if any Qs. d/w family and team Dr Dylan Escalona Office: [phone] Chief Complaint;change in mental status HPI: Pt is a 77 M with hx of ESRD on hemodialysis (MWF) via left AVF @ [facility] with Dr Yin/Dr Antoine, last dialysis today but skilled nursing, chronic anemia, hyperphosphatemia, secondary hyperparathyroidism, Diabetes Mellitus, hypertension, memory impairment/dementia, recent hospitalization for fall and Rt hip fracture s/p surgery went to rehab presented with complaints of change in mental status from HD unit today/ he was also noted to have low O2 sats pt awake but confused and unable to provide much reliable hx he has been on HD x 1 year ROS: unable to obtain much. family bedside Cardiovascular: No chest pain. Pulmonary: No shortness of breath Gastrointestinal: denies abdominal pain No nausea. No vomiting. no reports of fever Physical Examination: General Appearance: uncomfortable, in no acute respiratory distress, co- operative . confused, ill appearing Vitals reviewed and noted as below Head; Atraumatic, normocephalic ENT: no ulcers no thrush. Tongue is midline/dry. Oropharynx: no rash or ulcers. EYES: Pupils are equal, round and reactive to light accommodation. Eye muscles and extraocular movement intact. Sclera is anicteric. Neck; supple no lymphadenopathy, no thyromegaly or bruit Lungs: Normal respiratory rate/effort. Breath sounds bilateral equal and clear anteriorly Heart: Increased rate. s1s2 normal. No rub or gallop. A fib Extremities: no edema. No varicose veins Neurological: Patient is lethargic and confused, able to communicate somewhat with slurred words Skin: Warm and dry. Normal turgor. No rash. Palpitation: Normal elasticity for age Abdomen: Abdomen is soft. Bowel sounds +. There is no abdominal tenderness, no guarding/rigidity or organomegaly Psych:unable MSK: no joint tenderness or swelling. Digits and nails normal, no deformity, Rt hip surgery site looks clean. : kidney or bladder not palpable Access: left AVF Labs/imaging reviewed. Past medical history, past surgical history, family history, social history, allergy reviewed and noted as below Family Hx: no hx of CKD. Non contributory Past Patient History - Past Medical History & Family History Past Medical History?: Yes - Past Social History Smoking Status: Former Smoker - CARDIAC Hx Hypertension: Yes - PULMONARY Hx Respiratory Disorders: No - NEUROLOGICAL Hx Dementia: Yes - RENAL Hx Dialysis: Yes Date of Last Dialysis Treatment: 11/07/17 - ENDOCRINE/METABOLIC Hx Diabetes Mellitus Type 1: Yes - HEMATOLOGICAL/ONCOLOGICAL Hx Anemia: Yes - MUSCULOSKELETAL/RHEUMATOLOGICAL Hx Arthritis: Yes - GASTROINTESTINAL Hx Gastrointestinal Disorders: No - GENITOURINARY/GYNECOLOGICAL Hx Genitourinary Disorders: No - PSYCHIATRIC Hx Substance Use: No - SURGICAL HISTORY Hx Surgeries: Yes Hx Cardiac Catheterization: Yes (2004) - ANESTHESIA Hx Anesthesia: Yes Hx Anesthesia Reactions: No Hx Malignant Hyperthermia: No Meds Allergies/Adverse Reactions: Allergies Allergy/AdvReac Type Severity Reaction Status Date / Time No Known Allergies Allergy Verified 11/19/17 12:30 - Medications Medications: Current Medications Vancomycin HCl (Vancomycin 1gm In Normal Saline Addvantage) 1 gm in 250 mls @ 166.667 mls/hr IV STAT STA PRN Reason: Protocol Stop: 11/19/17 17:26 Moxifloxacin HCl (Avelox Iv 400mg/250ml Ns) 400 mg in 250 mls @ 250 mls/hr IV ONCE ONE PRN Reason: Protocol Stop: 11/19/17 16:58 Results - Vital Signs Recent Vital Signs: Last Vital Signs Temp 98.0 F 11/19/17 12:20 Pulse 109 H 11/19/17 15:24 Resp 14 11/19/17 15:24 BP 145/66 11/19/17 15:24 Pulse Ox 96 11/19/17 16:01 - Labs Result Diagrams: 11/19/17 13:35 11/19/17 13:35 Labs: Laboratory Results - last 24 hr 11/19/17 11/19/17 11/19/17 12:24 13:35 13:35 WBC 15.5 H RBC 3.46 L Hgb 10.4 L Hct 31.9 L MCV 92.0 MCH 29.9 MCHC 32.5 L RDW 16.8 H Plt Count 477 H D MPV 6.7 L Neut % (Auto) 79.5 H Lymph % (Auto) 11.4 L Iroquois % (Auto) 6.2 Eos % (Auto) 1.8 Baso % (Auto) 1.1 Neut # (Auto) 12.3 H Lymph # (Auto) 1.8 [place]quois # (Auto) 1.0 H Eos # (Auto) 0.3 Baso # (Auto) 0.2 PT INR Puncture Site pCO2 pO2 HCO3 ABG pH ABG Total CO2 ABG O2 Saturation ABG Base Excess Buddy Test ABG Potassium A-a O2 Difference Respiratory Index Glucose Lactate Liter Flow FiO2 Sodium 143 Potassium 3.7 Chloride 97 L Carbon Dioxide 37 H Anion Gap 13 BUN 25 H Creatinine 1.7 H Est GFR ( Amer) 47 Est GFR (Non-Af Amer) 39 POC Glucose (mg/dL) 155 H Random Glucose 154 H Calcium 8.6 Total Bilirubin 0.9 AST 75 H D ALT 40 Alkaline Phosphatase 119 Total Creatine Kinase 22 L CK-MB (Mass) 0.70 Troponin I 0.0550 NT-Pro-B Natriuret Pep 54649 H Total Protein 7.4 Albumin 3.2 L Globulin 4.2 H Albumin/Globulin Ratio 0.8 L Arterial Blood Potassium Urine Color Urine Clarity Urine pH Ur Specific Moran Urine Protein Urine Glucose (UA) Urine Ketones Urine Blood Urine Nitrate Urine Bilirubin Urine Urobilinogen Ur Leukocyte Esterase Urine WBC (Auto) Urine RBC (Auto) 11/19/17 11/19/17 11/19/17 13:36 14:06 15:40 WBC RBC Hgb Hct MCV MCH MCHC RDW Plt Count MPV Neut % (Auto) Lymph % (Auto) [place]roquois % (Auto) Eos % (Auto) Baso % (Auto) Neut # (Auto) Lymph # (Auto) [place]quois # (Auto) Eos # (Auto) Baso # (Auto) PT 12.4 H INR 1.1 Puncture Site Rra pCO2 48 H pO2 93 HCO3 30.5 H ABG pH 7.44 ABG Total CO2 34.1 H ABG O2 Saturation 98.2 H ABG Base Excess 7.2 H Buddy Test Pos ABG Potassium 3.3 L A-a O2 Difference 75.0 Respiratory Index 0.8 Glucose 190 H Lactate 0.9 Liter Flow 3.0 FiO2 32.0 Sodium 140.0 Potassium Chloride 102.0 Carbon Dioxide Anion Gap BUN Creatinine Est GFR ( Amer) Est GFR (Non-Af Amer) POC Glucose (mg/dL) Random Glucose Calcium Total Bilirubin AST ALT Alkaline Phosphatase Total Creatine Kinase CK-MB (Mass) Troponin I NT-Pro-B Natriuret Pep Total Protein Albumin Globulin Albumin/Globulin Ratio Arterial Blood Potassium 3.3 L Urine Color Yellow Urine Clarity Hazy Urine pH 7.0 Ur Specific Moran 1.014 Urine Protein 2+ H Urine Glucose (UA) 3+ H Urine Ketones Negative Urine Blood Negative Urine Nitrate Negative Urine Bilirubin Negative Urine Urobilinogen Normal Ur Leukocyte Esterase Neg Urine WBC (Auto) 3 Urine RBC (Auto) < 1
[2017-11-19] MEDS ORDERED: EPOETIN ALFA 4,000 UNIT/ML ML Dialysis IV SCH (17:00)
[2017-11-19] MEDS ORDERED: oxyCODONE 5 mg Immediate Release Tab PO PRN (19:12)
--- NOTE | 2017-11-19 19:16 | CP.PCM.HP ---
Past Patient History - Past Medical History & Family History Past Medical History?: Yes - Past Social History Smoking Status: Former Smoker - CARDIAC Hx Hypertension: Yes - PULMONARY Hx Respiratory Disorders: No - NEUROLOGICAL Hx Dementia: Yes - RENAL Hx Dialysis: Yes Date of Last Dialysis Treatment: 11/07/17 - ENDOCRINE/METABOLIC Hx Diabetes Mellitus Type 1: Yes - HEMATOLOGICAL/ONCOLOGICAL Hx Anemia: Yes - MUSCULOSKELETAL/RHEUMATOLOGICAL Hx Arthritis: Yes - GASTROINTESTINAL Hx Gastrointestinal Disorders: No - GENITOURINARY/GYNECOLOGICAL Hx Genitourinary Disorders: No - PSYCHIATRIC Hx Substance Use: No - SURGICAL HISTORY Hx Surgeries: Yes Hx Cardiac Catheterization: Yes (2004) - ANESTHESIA Hx Anesthesia: Yes Hx Anesthesia Reactions: No Hx Malignant Hyperthermia: No Meds Allergies/Adverse Reactions: Allergies Allergy/AdvReac Type Severity Reaction Status Date / Time No Known Allergies Allergy Verified 11/19/17 12:30 Physical Exam - Constitutional Appears: Well - Head Exam Head Exam: ATRAUMATIC, NORMAL INSPECTION, NORMOCEPHALIC - Eye Exam Eye Exam: EOMI, Normal appearance, PERRL Pupil Exam: NORMAL ACCOMODATION, PERRL - ENT Exam ENT Exam: Mucous Membranes Moist, Normal Exam - Neck Exam Neck exam: Positive for: Normal Inspection - Respiratory Exam Respiratory Exam: Decreased Breath Sounds - Cardiovascular Exam Cardiovascular Exam: REGULAR RHYTHM, +S1, +S2 - GI/Abdominal Exam GI & Abdominal Exam: Diminished Bowel Sounds, Soft - Rectal Exam Rectal Exam: Deferred Results - Vital Signs Recent Vital Signs: Last Vital Signs Temp 97.5 F L 11/19/17 18:00 Pulse 86 11/19/17 18:40 Resp 15 11/19/17 18:40 BP 145/73 11/19/17 18:40 Pulse Ox 95 11/19/17 18:40 - Labs Result Diagrams: 11/19/17 13:35 11/19/17 13:35 Labs: Laboratory Results - last 24 hr 11/19/17 11/19/17 11/19/17 12:24 13:35 13:35 WBC 15.5 H RBC 3.46 L Hgb 10.4 L Hct 31.9 L MCV 92.0 MCH 29.9 MCHC 32.5 L RDW 16.8 H Plt Count 477 H D MPV 6.7 L Neut % (Auto) 79.5 H Lymph % (Auto) 11.4 L [place] % (Auto) 6.2 Eos % (Auto) 1.8 Baso % (Auto) 1.1 Neut # (Auto) 12.3 H Lymph # (Auto) 1.8 [place] # (Auto) 1.0 H Eos # (Auto) 0.3 Baso # (Auto) 0.2 PT INR Puncture Site pCO2 pO2 HCO3 ABG pH ABG Total CO2 ABG O2 Saturation ABG Base Excess Buddy Test ABG Potassium A-a O2 Difference Respiratory Index Glucose Lactate Liter Flow FiO2 Sodium 143 Potassium 3.7 Chloride 97 L Carbon Dioxide 37 H Anion Gap 13 BUN 25 H Creatinine 1.7 H Est GFR ( Amer) 47 Est GFR (Non-Af Amer) 39 POC Glucose (mg/dL) 155 H Random Glucose 154 H Calcium 8.6 Total Bilirubin 0.9 AST 75 H D ALT 40 Alkaline Phosphatase 119 Total Creatine Kinase 22 L CK-MB (Mass) 0.70 Troponin I 0.0550 NT-Pro-B Natriuret Pep 27115 H Total Protein 7.4 Albumin 3.2 L Globulin 4.2 H Albumin/Globulin Ratio 0.8 L Arterial Blood Potassium Urine Color Urine Clarity Urine pH Ur Specific [place] Urine Protein Urine Glucose (UA) Urine Ketones Urine Blood Urine Nitrate Urine Bilirubin Urine Urobilinogen Ur Leukocyte Esterase Urine WBC (Auto) Urine RBC (Auto) 11/19/17 11/19/17 11/19/17 13:36 14:06 15:40 WBC RBC Hgb Hct MCV MCH MCHC RDW Plt Count MPV Neut % (Auto) Lymph % (Auto) [place] % (Auto) Eos % (Auto) Baso % (Auto) Neut # (Auto) Lymph # (Auto) [place] # (Auto) Eos # (Auto) Baso # (Auto) PT 12.4 H INR 1.1 Puncture Site Rra pCO2 48 H pO2 93 HCO3 30.5 H ABG pH 7.44 ABG Total CO2 34.1 H ABG O2 Saturation 98.2 H ABG Base Excess 7.2 H Buddy Test Pos ABG Potassium 3.3 L A-a O2 Difference 75.0 Respiratory Index 0.8 Glucose 190 H Lactate 0.9 Liter Flow 3.0 FiO2 32.0 Sodium 140.0 Potassium Chloride 102.0 Carbon Dioxide Anion Gap BUN Creatinine Est GFR ( Amer) Est GFR (Non-Af Amer) POC Glucose (mg/dL) Random Glucose Calcium Total Bilirubin AST ALT Alkaline Phosphatase Total Creatine Kinase CK-MB (Mass) Troponin I NT-Pro-B Natriuret Pep Total Protein Albumin Globulin Albumin/Globulin Ratio Arterial Blood Potassium 3.3 L Urine Color Yellow Urine Clarity Hazy Urine pH 7.0 Ur Specific [place] 1.014 Urine Protein 2+ H Urine Glucose (UA) 3+ H Urine Ketones Negative Urine Blood Negative Urine Nitrate Negative Urine Bilirubin Negative Urine Urobilinogen Normal Ur Leukocyte Esterase Neg Urine WBC (Auto) 3 Urine RBC (Auto) < 1 11/19/17 18:18 WBC RBC Hgb Hct MCV MCH MCHC RDW Plt Count MPV Neut % (Auto) Lymph % (Auto) [place] % (Auto) Eos % (Auto) Baso % (Auto) Neut # (Auto) Lymph # (Auto) [place] # (Auto) Eos # (Auto) Baso # (Auto) PT INR Puncture Site pCO2 pO2 HCO3 ABG pH ABG Total CO2 ABG O2 Saturation ABG Base Excess Buddy Test ABG Potassium A-a O2 Difference Respiratory Index Glucose Lactate Liter Flow FiO2 Sodium Potassium Chloride Carbon Dioxide Anion Gap BUN Creatinine Est GFR ( Amer) Est GFR (Non-Af Amer) POC Glucose (mg/dL) 190 H Random Glucose Calcium Total Bilirubin AST ALT Alkaline Phosphatase Total Creatine Kinase CK-MB (Mass) Troponin I NT-Pro-B Natriuret Pep Total Protein Albumin Globulin Albumin/Globulin Ratio Arterial Blood Potassium Urine Color Urine Clarity Urine pH Ur Specific [place] Urine Protein Urine Glucose (UA) Urine Ketones Urine Blood Urine Nitrate Urine Bilirubin Urine Urobilinogen Ur Leukocyte Esterase Urine WBC (Auto) Urine RBC (Auto)
[2017-11-19] MEDS: (Novolog) Insulin Aspart, Recombinant 100 u/ml 10 ml vial SC SCH (22:31)
[2017-11-19] MEDS: Tobramycin 0.3% OPHT SOLN OS SCH (22:46)
[2017-11-19] MEDS: (Lantus) Insulin Glargine, Recombinant SC SCH (22:48)
[2017-11-19] MEDS ORDERED: Vancomycin 1 gm/NS 200 ml 1 GM/200 ML BAG IVPB ONE (23:00)
[2017-11-20] MEDS: Tobramycin 0.3% OPHT SOLN OS SCH ×4 (01:15→18:20)
[2017-11-20] MEDS: (Novolog) Insulin Aspart, Recombinant 100 u/ml 10 ml vial SC SCH ×4 (08:18→22:29)
[2017-11-20] MEDS ORDERED: Multivitamin Vitamin B Complex (Nephro-Vite) Tab PO SCH (10:00)
[2017-11-20] MEDS ORDERED: Divalproex 125 mg Sprinkle Capsule PO SCH (10:00)
[2017-11-20] MEDS ORDERED: (Novolog) Insulin Aspart, Recombinant 100 u/ml 10 ml vial IV SCH (10:00)
[2017-11-20] MEDS: Metoprolol Succinate 200 mg XL Tab PO SCH (10:17)
--- NOTE | 2017-11-20 11:31 | CP.PCM.CON ---
History of Present Illness - History of Present Illness History of Present Illness: 77 yr old male, who is azeri speaking only and presents with confusion, several spells that have been occuring for several minutes a day over the last couple of weeks. He had an acute change in mental status after dialysis, that was confusion and not associated with headache, aphasia or weakness. He has a history of dementia but routinely can name and repeat and is conversant. pmh/psh Hypoxic respi failure with pulm congestion/effusions AMS ? cause (r/o infection as etiology) A fib with RVR Diabetic chronic Kidney Disease (E11.22) Hypertensive Chronic Kidney Disease (I12.0) End stage renal disease (N18.6) dependence on hemodialysis (Z99.2) (MWF) via AVF Anemia (D64.9), Hyperphosphatemia (E83.39), Secondary Hyperparathyroidism (E21.1 ), HTN (I12.0) FH/SH: [place]. no tobacco, no etoh. All: nkda. on exam: alert awake and oriented to self only. PERRL. CN 2-12 normal. 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 +2 dtr ul and ll bl. Has some mild asterixis. Past Patient History - Past Medical History & Family History Past Medical History?: Yes - Past Social History Smoking Status: Light Smoker < 10 Cigarettes Daily - CARDIAC Hx Cardiac Disorders: Yes Hx Cardia Arrhythmia: Yes Hx Congestive Heart Failure: Yes Hx Heart Attack: Yes Hx Hypertension: Yes Hx Peripheral Edema: Yes - PULMONARY Hx Respiratory Disorders: Yes Hx Pneumonia: Yes - NEUROLOGICAL Hx Neurological Disorder: Yes HX Cerebrovascular Accident: Yes Hx Dementia: Yes - HEENT Hx HEENT Problems: Yes Hx Cataracts: Yes (had suegry on both eyes) - RENAL Date of Last Dialysis Treatment: 11/19/17 - ENDOCRINE/METABOLIC Hx Endocrine Disorders: Yes Hx Diabetes Mellitus Type 1: Yes - HEMATOLOGICAL/ONCOLOGICAL Hx Blood Disorders: Yes Hx Anemia: Yes Hx Blood Transfusions: Yes Hx Blood Transfusion Reaction: No - INTEGUMENTARY Hx Dermatological Problems: Yes Other/Comment: sacral pressure sore 3cmx1.5cm - MUSCULOSKELETAL/RHEUMATOLOGICAL Hx Falls: Yes - GASTROINTESTINAL Hx Gastrointestinal Disorders: Yes Hx Constipation: Yes - GENITOURINARY/GYNECOLOGICAL Hx Genitourinary Disorders: Yes Hx Incontinence: Yes - PSYCHIATRIC Hx Substance Use: No - SURGICAL HISTORY Hx Surgeries: Yes Hx Arteriovenous Shunt: Yes (left arm) Hx Cardiac Catheterization: Yes (2004) Hx Orthopedic Surgery: Yes (rt leg) - ANESTHESIA Hx Anesthesia: Yes Hx Anesthesia Reactions: No Hx Malignant Hyperthermia: No Meds Allergies/Adverse Reactions: Allergies Allergy/AdvReac Type Severity Reaction Status Date / Time No Known Allergies Allergy Verified 11/19/17 12:30 - Medications Medications: Current Medications Aspirin (Aspirin Chewable) 81 mg PO DAILY [facility] Last Admin: 11/20/17 10:17 Dose: 81 mg Clopidogrel Bisulfate (Plavix) 75 mg PO DAILY [facility] Last Admin: 11/20/17 10:17 Dose: 75 mg Divalproex Sodium (Depakote Sprinkles) 125 mg PO DAILY [facility] Last Admin: 11/20/17 10:17 Dose: 125 mg Docusate Sodium (Colace) 100 mg PO BID [facility] Last Admin: 11/20/17 10:17 Dose: 100 mg Donepezil HCl (Aricept) 5 mg PO [facility] Last Admin: 11/19/17 22:46 Dose: 5 mg Epoetin Ari (Procrit) 4,000 unit IV MWF [facility] Last Admin: 11/19/17 19:28 Dose: 4,000 unit Heparin Sodium (Porcine) (Heparin) 5,000 units SC Q12 [facility] Last Admin: 11/20/17 10:17 Dose: 5,000 units Cefepime HCl 1 gm/ Dextrose 50 mls @ 100 mls/hr IVPB Q12H [facility] PRN Reason: Protocol Last Admin: 11/20/17 08:18 Dose: 100 mls/hr Insulin Aspart (Novolog) 0 unit SC ACHS [facility] PRN Reason: Protocol Last Admin: 11/20/17 08:18 Dose: 4 unit Insulin Glargine (Lantus) 10 unit SC HS [facility] Last Admin: 11/19/17 22:48 Dose: Not Given Memantine (Namenda) 5 mg PO BID [facility] Last Admin: 11/20/17 10:17 Dose: 5 mg Metoprolol Succinate (Toprol Xl) 200 mg PO DAILY [facility] Last Admin: 11/20/17 10:17 Dose: 200 mg Midodrine (Proamatine) 5 mg PO TID [facility] Mirtazapine (Remeron) 15 mg PO HS [facility] Last Admin: 11/19/17 22:46 Dose: 15 mg Oxycodone HCl (Oxycodone Immediate Release Tab) 5 mg PO Q6 PRN PRN Reason: Pain, moderate (4-7) Rosuvastatin Calcium (Crestor) 5 mg PO [facility] Last Admin: 11/19/17 22:45 Dose: 5 mg Tobramycin Sulfate (Tobrex 0.3% Ophth Soln) 2 drop OS Q6H [facility] Last Admin: 11/20/17 06:42 Dose: 2 drop Vitamin B Complex/Vit C/Folic Acid (Nephro-Jerson) 1 tab PO 0800 [facility] Results - Vital Signs Recent Vital Signs: Last Vital Signs Temp 97.7 F 11/20/17 07:30 Pulse 105 H 11/20/17 07:30 Resp 20 11/20/17 07:30 BP 124/78 11/20/17 07:30 Pulse Ox 98 11/20/17 07:30 - Labs Result Diagrams: 11/19/17 13:35 11/19/17 13:35 Labs: Laboratory Results - last 24 hr 11/19/17 11/19/17 11/19/17 12:24 13:35 13:35 WBC 15.5 H RBC 3.46 L Hgb 10.4 L Hct 31.9 L MCV 92.0 MCH 29.9 MCHC 32.5 L RDW 16.8 H Plt Count 477 H D MPV 6.7 L Neut % (Auto) 79.5 H Lymph % (Auto) 11.4 L [place] % (Auto) 6.2 Eos % (Auto) 1.8 Baso % (Auto) 1.1 Neut # (Auto) 12.3 H Lymph # (Auto) 1.8 [place] # (Auto) 1.0 H Eos # (Auto) 0.3 Baso # (Auto) 0.2 PT INR Puncture Site pCO2 pO2 HCO3 ABG pH ABG Total CO2 ABG O2 Saturation ABG Base Excess Buddy Test ABG Potassium A-a O2 Difference Respiratory Index Glucose Lactate Liter Flow FiO2 Sodium 143 Potassium 3.7 Chloride 97 L Carbon Dioxide 37 H Anion Gap 13 BUN 25 H Creatinine 1.7 H Est GFR ( Amer) 47 Est GFR (Non-Af Amer) 39 POC Glucose (mg/dL) 155 H Random Glucose 154 H Calcium 8.6 Total Bilirubin 0.9 AST 75 H D ALT 40 Alkaline Phosphatase 119 Total Creatine Kinase 22 L CK-MB (Mass) 0.70 Troponin I 0.0550 NT-Pro-B Natriuret Pep 78221 H Total Protein 7.4 Albumin 3.2 L Globulin 4.2 H Albumin/Globulin Ratio 0.8 L Arterial Blood Potassium Urine Color Urine Clarity Urine pH Ur Specific [place] Urine Protein Urine Glucose (UA) Urine Ketones Urine Blood Urine Nitrate Urine Bilirubin Urine Urobilinogen Ur Leukocyte Esterase Urine WBC (Auto) Urine RBC (Auto) 11/19/17 11/19/17 11/19/17 13:36 14:06 15:40 WBC RBC Hgb Hct MCV MCH MCHC RDW Plt Count MPV Neut % (Auto) Lymph % (Auto) [place] % (Auto) Eos % (Auto) Baso % (Auto) Neut # (Auto) Lymph # (Auto) [place] # (Auto) Eos # (Auto) Baso # (Auto) PT 12.4 H INR 1.1 Puncture Site Rra pCO2 48 H pO2 93 HCO3 30.5 H ABG pH 7.44 ABG Total CO2 34.1 H ABG O2 Saturation 98.2 H ABG Base Excess 7.2 H Buddy Test Pos ABG Potassium 3.3 L A-a O2 Difference 75.0 Respiratory Index 0.8 Glucose 190 H Lactate 0.9 Liter Flow 3.0 FiO2 32.0 Sodium 140.0 Potassium Chloride 102.0 Carbon Dioxide Anion Gap BUN Creatinine Est GFR ( Amer) Est GFR (Non-Af Amer) POC Glucose (mg/dL) Random Glucose Calcium Total Bilirubin AST ALT Alkaline Phosphatase Total Creatine Kinase CK-MB (Mass) Troponin I NT-Pro-B Natriuret Pep Total Protein Albumin Globulin Albumin/Globulin Ratio Arterial Blood Potassium 3.3 L Urine Color Yellow Urine Clarity Hazy Urine pH 7.0 Ur Specific [place] 1.014 Urine Protein 2+ H Urine Glucose (UA) 3+ H Urine Ketones Negative Urine Blood Negative Urine Nitrate Negative Urine Bilirubin Negative Urine Urobilinogen Normal Ur Leukocyte Esterase Neg Urine WBC (Auto) 3 Urine RBC (Auto) < 1 11/19/17 11/20/17 18:18 06:07 WBC RBC Hgb Hct MCV MCH MCHC RDW Plt Count MPV Neut % (Auto) Lymph % (Auto) [place] % (Auto) Eos % (Auto) Baso % (Auto) Neut # (Auto) Lymph # (Auto) [place] # (Auto) Eos # (Auto) Baso # (Auto) PT INR Puncture Site pCO2 pO2 HCO3 ABG pH ABG Total CO2 ABG O2 Saturation ABG Base Excess Buddy Test ABG Potassium A-a O2 Difference Respiratory Index Glucose Lactate Liter Flow FiO2 Sodium Potassium Chloride Carbon Dioxide Anion Gap BUN Creatinine Est GFR ( Amer) Est GFR (Non-Af Amer) POC Glucose (mg/dL) 190 H 313 H Random Glucose Calcium Total Bilirubin AST ALT Alkaline Phosphatase Total Creatine Kinase CK-MB (Mass) Troponin I NT-Pro-B Natriuret Pep Total Protein Albumin Globulin Albumin/Globulin Ratio Arterial Blood Potassium Urine Color Urine Clarity Urine pH Ur Specific [place] Urine Protein Urine Glucose (UA) Urine Ketones Urine Blood Urine Nitrate Urine Bilirubin Urine Urobilinogen Ur Leukocyte Esterase Urine WBC (Auto) Urine RBC (Auto) - Imaging and Cardiology CT scan - head Status: Image reviewed by me, Report reviewed by me (ct head shows profound frontal lobe atrophy and temporal lobe as well. ) Assessment & Plan - Assessment and Plan (Free Text) Assessment: 77 yr old male with severe dementia who may be having discrete complex partial seizures due to plaque load, and may also be encephalopathic due to metabolic reasons. PLan: 1. Ammonia 2. EEG 3. MRI Brain if tolerate Thank you our team will follow Dr. srinivasan
--- NOTE | 2017-11-20 11:39 | CP.PCM.CON ---
History of Present Illness - History of Present Illness History of Present Illness: I was asked to see patient by Dr Fox. Patient is a 77 year old male with PMH HTN, atrial fibrillation, CAD, ESRD on HD who presents with hypoxemia the patient had a recent hospitalization for a fall and hip fracture. After medical stabilization he underwent successful surgery. he was transferred to rehab, but had to be transferrd for follow given abnormal saturations. The patient has been in rapid atrial fibrillation on the monitor. Review of Systems - Constitutional Constitutional: Weakness - EENT Eyes: absent: As Per HPI, Blind Spots, Blurred Vision, Change in Vision, Decreased Night Vision, Diplopia, Discharge, Dry Eye, Exophthalmos, Floaters, Irritation, Itchy Eyes, Loss of Peripheral Vision, Pain, Photophobia, Requires Corrective Lenses, Sees Flashes, Spots in Vision, Tunnel Vision, Other Visual Disturbances, Loss of Vision, Other Ears: absent: As Per HPI, Decreased Hearing, Ear Discharge, Ear Pain, Tinnitus, Abnormal Hearing, Disequilibrium, Dizziness, Other Nose/Mouth/Throat: absent: As Per HPI, Epistaxis, Nasal Congestion, Nasal Discharge, Nasal Obstruction, Nasal Trauma, Nose Pain, Post Nasal Drip, Sinus Pain, Sinus Pressure, Bleeding Gums, Change in Voice, Dental Pain, Dry Mouth, Dysphagia, Halitosis, Hoarsness, Lip Swelling, Mouth Lesions, Mouth Pain, Odynophagia, Sore Throat, Throat Swelling, Tongue Swelling, Facial Pain, Neck Pain, Neck Mass, Other - Cardiovascular Cardiovascular: absent: As Per HPI, Acrocyanosis, Chest Pain, Chest Pain at Rest , Chest Pain with Activity, Claudication, Diaphoresis, Dyspnea, Dyspnea on Exertion, Edema, Irregular Heart Rhythm, Pain Radiating to Arm/Neck/Jaw, Leg Edema, Leg Ulcers, Lightheadedness, Orthopnea, Palpitations, Paroxysmal Nocturnal Dyspnea, Pedal Edema, Radiating Pain, Rapid Heart Rate, Slow Heart Rate, Syncope, Other - Respiratory Respiratory: absent: As Per HPI, Cough, Dyspnea, Hemoptysis, Dyspnea on Exertion , Wheezing, Snoring, Stridor, Pain on Inspiration, Chest Congestion, Excessive Mucous Production, Change in Mucous Color, Pain with Coughing, Other - Gastrointestinal Gastrointestinal: absent: As Per HPI, Abdominal Pain, Belching, Bloating, Change in Bowel Habits, Change in Stool Character, Coffee Ground Emesis, Constipation, Cramping, Diarrhea, Dyspepsia, Dysphagia, Early Satiety, Excessive Flatus, Fecal Incontinence, Heartburn, Hematemesis, Hematochezia, Loose Stools, Melena, Nausea, Odynophagia, Temesmus, Vomiting, Other - Genitourinary Genitourinary: absent: As Per HPI, Change in Urinary Stream, Difficulty Urinating, Dysuria, Flank Pain, Hematuria, Pyuria, Nocturia, Urinary Incontinence, Urinary Frequency, Urinary Hesitance, Urinary Urgency, Voiding Freq/Small Amts, Freq UTI, Hx Renal/Bladder Calculi, Hx /Renal Surgery, Bladder Distension, Other - Musculoskeletal Musculoskeletal: absent: As Per HPI, Abnormal Gait, Arthralgias, Atrophy, Back Pain, Deformity, Joint Swelling, Limited Range of Motion, Loss of Height, Muscle Cramps, Muscle Weakness, Myalgias, Neck Pain, Numbness, Radiating Pain into Limb, Stiffness, Tingling, Other - Integumentary Integumentary: absent: As Per HPI, Acne, Alopecia, Bleeding Lesions, Change in Hair, Change in Nails, Change in Pigmentation, Changing Lesions, Dry Skin, Erythema, Furuncle, Hirsutism, Lesions, New Lesions, Non-Healing Lesions, Photosensitivity, Pruritus, Rash, Skin Pain, Skin Ulcer, Sores, Striae, Swelling , Unusual Bruising, Wounds, Jaundice, Other - Neurological Neurological: absent: As Per HPI, Abnormal Gait, Abnormal Hearing, Abnormal Movements, Abnormal Speech, Behavioral Changes, Burning Sensations, Confusion, Convulsions, Disequilibrium, Dizziness, Numbness, Focal Weakness, Frequent Falls , Headaches, Lack of Coordination, Loss of Vision, Memory Loss, Paresthesias, Radicular Pain, Restless Legs, Sensory Deficit, Syncope, Tingling, Tremor, Vertigo, Weakness, Other Visual Disturbances, Other - Psychiatric Psychiatric: absent: As Per HPI, Abnormal Sleep Pattern, Anhedonia, Anxiety, Auditory Hallucinations, Behavioral Changes, Change in Appetite, Change in Libido, Confusion, Depression, Difficulty Concentrating, Hallucinations, Homicidal Ideation, Hopelessness, Irritability, Memory Loss, Mood Swings, Panic Attacks, Paranoia, Suicidal Ideation, Visual Hallucinations, Tactile Hallucinations, Other - Endocrine Endocrine: absent: As Per HPI, Change in Body Appearance, Change in Libido, Cold Intolorance, Deepening of Voice, Excessive Sweating, Fatigue, Flushing, Heat Intolorance, Increase in Ring/Shoe/Hat Size, Palpitations, Polydipsia, Polyphagia, Polyuria, Other - Hematologic/Lymphatic Hematologic: absent: As Per HPI, Easy Bleeding, Easy Bruising, Lymphadenopathy, Other Past Patient History - Past Medical History & Family History Past Medical History?: Yes - Past Social History Smoking Status: Light Smoker < 10 Cigarettes Daily - CARDIAC Hx Cardiac Disorders: Yes Hx Cardia Arrhythmia: Yes Hx Congestive Heart Failure: Yes Hx Heart Attack: Yes Hx Hypertension: Yes Hx Peripheral Edema: Yes - PULMONARY Hx Respiratory Disorders: Yes Hx Pneumonia: Yes - NEUROLOGICAL Hx Neurological Disorder: Yes HX Cerebrovascular Accident: Yes Hx Dementia: Yes - HEENT Hx HEENT Problems: Yes Hx Cataracts: Yes (had suegry on both eyes) - RENAL Date of Last Dialysis Treatment: 11/19/17 - ENDOCRINE/METABOLIC Hx Endocrine Disorders: Yes Hx Diabetes Mellitus Type 1: Yes - HEMATOLOGICAL/ONCOLOGICAL Hx Blood Disorders: Yes Hx Anemia: Yes Hx Blood Transfusions: Yes Hx Blood Transfusion Reaction: No - INTEGUMENTARY Hx Dermatological Problems: Yes Other/Comment: sacral pressure sore 3cmx1.5cm - MUSCULOSKELETAL/RHEUMATOLOGICAL Hx Falls: Yes - GASTROINTESTINAL Hx Gastrointestinal Disorders: Yes Hx Constipation: Yes - GENITOURINARY/GYNECOLOGICAL Hx Genitourinary Disorders: Yes Hx Incontinence: Yes - PSYCHIATRIC Hx Substance Use: No - SURGICAL HISTORY Hx Surgeries: Yes Hx Arteriovenous Shunt: Yes (left arm) Hx Cardiac Catheterization: Yes (2004) Hx Orthopedic Surgery: Yes (rt leg) - ANESTHESIA Hx Anesthesia: Yes Hx Anesthesia Reactions: No Hx Malignant Hyperthermia: No Meds Allergies/Adverse Reactions: Allergies Allergy/AdvReac Type Severity Reaction Status Date / Time No Known Allergies Allergy Verified 11/19/17 12:30 - Medications Medications: Current Medications Aspirin (Aspirin Chewable) 81 mg PO DAILY [facility] Last Admin: 11/20/17 10:17 Dose: 81 mg Clopidogrel Bisulfate (Plavix) 75 mg PO DAILY [facility] Last Admin: 11/20/17 10:17 Dose: 75 mg Divalproex Sodium (Depakote Sprinkles) 125 mg PO DAILY [facility] Last Admin: 11/20/17 10:17 Dose: 125 mg Divalproex Sodium (Depakote Dr) 250 mg PO BID [facility] Docusate Sodium (Colace) 100 mg PO BID [facility] Last Admin: 11/20/17 10:17 Dose: 100 mg Donepezil HCl (Aricept) 5 mg PO HS [facility] Last Admin: 11/19/17 22:46 Dose: 5 mg Epoetin Ari (Procrit) 4,000 unit IV MWF [facility] Last Admin: 11/19/17 19:28 Dose: 4,000 unit Heparin Sodium (Porcine) (Heparin) 5,000 units SC Q12 [facility] Last Admin: 11/20/17 10:17 Dose: 5,000 units Cefepime HCl 1 gm/ Dextrose 50 mls @ 100 mls/hr IVPB Q12H [facility] PRN Reason: Protocol Last Admin: 11/20/17 08:18 Dose: 100 mls/hr Insulin Aspart (Novolog) 0 unit SC ACHS [facility] PRN Reason: Protocol Last Admin: 11/20/17 08:18 Dose: 4 unit Insulin Glargine (Lantus) 10 unit SC [facility] Last Admin: 11/19/17 22:48 Dose: Not Given Memantine (Namenda) 5 mg PO BID [facility] Last Admin: 11/20/17 10:17 Dose: 5 mg Metoprolol Succinate (Toprol Xl) 200 mg PO DAILY [facility] Last Admin: 11/20/17 10:17 Dose: 200 mg Mirtazapine (Remeron) 15 mg PO [facility] Last Admin: 11/19/17 22:46 Dose: 15 mg Oxycodone HCl (Oxycodone Immediate Release Tab) 5 mg PO Q6 PRN PRN Reason: Pain, moderate (4-7) Rosuvastatin Calcium (Crestor) 5 mg PO [facility] Last Admin: 11/19/17 22:45 Dose: 5 mg Tobramycin Sulfate (Tobrex 0.3% Ophth Soln) 2 drop OS Q6H [facility] Last Admin: 11/20/17 06:42 Dose: 2 drop Vitamin B Complex/Vit C/Folic Acid (Nephro-Jerson) 1 tab PO 0800 [facility] Physical Exam - Constitutional Appears: Non-toxic - Head Exam Head Exam: NORMAL INSPECTION - Eye Exam Eye Exam: Normal appearance - ENT Exam ENT Exam: Mucous Membranes Dry - Neck Exam Neck exam: Positive for: Full Rom - Respiratory Exam Respiratory Exam: Decreased Breath Sounds - Cardiovascular Exam Cardiovascular Exam: Irregular Rhythm - GI/Abdominal Exam GI & Abdominal Exam: Normal Bowel Sounds - Rectal Exam Rectal Exam: Deferred - Extremities Exam Extremities exam: Positive for: pedal edema - Back Exam Back exam: NORMAL INSPECTION - Neurological Exam Neurological exam: Alert, Oriented x3 Results - Vital Signs Recent Vital Signs: Last Vital Signs Temp 97.7 F 11/20/17 07:30 Pulse 108 H 11/20/17 10:17 Resp 20 11/20/17 07:30 BP 121/82 11/20/17 10:17 Pulse Ox 98 11/20/17 07:30 - Labs Result Diagrams: 11/19/17 13:35 11/19/17 13:35 Labs: Laboratory Results - last 24 hr 11/19/17 11/19/17 11/19/17 12:24 13:35 13:35 WBC 15.5 H RBC 3.46 L Hgb 10.4 L Hct 31.9 L MCV 92.0 MCH 29.9 MCHC 32.5 L RDW 16.8 H Plt Count 477 H D MPV 6.7 L Neut % (Auto) 79.5 H Lymph % (Auto) 11.4 L Douglas % (Auto) 6.2 Eos % (Auto) 1.8 Baso % (Auto) 1.1 Neut # (Auto) 12.3 H Lymph # (Auto) 1.8 Douglas # (Auto) 1.0 H Eos # (Auto) 0.3 Baso # (Auto) 0.2 PT INR Puncture Site pCO2 pO2 HCO3 ABG pH ABG Total CO2 ABG O2 Saturation ABG Base Excess Buddy Test ABG Potassium A-a O2 Difference Respiratory Index Glucose Lactate Liter Flow FiO2 Sodium 143 Potassium 3.7 Chloride 97 L Carbon Dioxide 37 H Anion Gap 13 BUN 25 H Creatinine 1.7 H Est GFR ( Amer) 47 Est GFR (Non-Af Amer) 39 POC Glucose (mg/dL) 155 H Random Glucose 154 H Calcium 8.6 Total Bilirubin 0.9 AST 75 H D ALT 40 Alkaline Phosphatase 119 Total Creatine Kinase 22 L CK-MB (Mass) 0.70 Troponin I 0.0550 NT-Pro-B Natriuret Pep 49384 H Total Protein 7.4 Albumin 3.2 L Globulin 4.2 H Albumin/Globulin Ratio 0.8 L Arterial Blood Potassium Urine Color Urine Clarity Urine pH Ur Specific [place] Urine Protein Urine Glucose (UA) Urine Ketones Urine Blood Urine Nitrate Urine Bilirubin Urine Urobilinogen Ur Leukocyte Esterase Urine WBC (Auto) Urine RBC (Auto) 11/19/17 11/19/17 11/19/17 13:36 14:06 15:40 WBC RBC Hgb Hct MCV MCH MCHC RDW Plt Count MPV Neut % (Auto) Lymph % (Auto) Douglas % (Auto) Eos % (Auto) Baso % (Auto) Neut # (Auto) Lymph # (Auto) Douglas # (Auto) Eos # (Auto) Baso # (Auto) PT 12.4 H INR 1.1 Puncture Site Rra pCO2 48 H pO2 93 HCO3 30.5 H ABG pH 7.44 ABG Total CO2 34.1 H ABG O2 Saturation 98.2 H ABG Base Excess 7.2 H Buddy Test Pos ABG Potassium 3.3 L A-a O2 Difference 75.0 Respiratory Index 0.8 Glucose 190 H Lactate 0.9 Liter Flow 3.0 FiO2 32.0 Sodium 140.0 Potassium Chloride 102.0 Carbon Dioxide Anion Gap BUN Creatinine Est GFR ( Amer) Est GFR (Non-Af Amer) POC Glucose (mg/dL) Random Glucose Calcium Total Bilirubin AST ALT Alkaline Phosphatase Total Creatine Kinase CK-MB (Mass) Troponin I NT-Pro-B Natriuret Pep Total Protein Albumin Globulin Albumin/Globulin Ratio Arterial Blood Potassium 3.3 L Urine Color Yellow Urine Clarity Hazy Urine pH 7.0 Ur Specific [place] 1.014 Urine Protein 2+ H Urine Glucose (UA) 3+ H Urine Ketones Negative Urine Blood Negative Urine Nitrate Negative Urine Bilirubin Negative Urine Urobilinogen Normal Ur Leukocyte Esterase Neg Urine WBC (Auto) 3 Urine RBC (Auto) < 1 11/19/17 11/20/17 18:18 06:07 WBC RBC Hgb Hct MCV MCH MCHC RDW Plt Count MPV Neut % (Auto) Lymph % (Auto) Douglas % (Auto) Eos % (Auto) Baso % (Auto) Neut # (Auto) Lymph # (Auto) Douglas # (Auto) Eos # (Auto) Baso # (Auto) PT INR Puncture Site pCO2 pO2 HCO3 ABG pH ABG Total CO2 ABG O2 Saturation ABG Base Excess Buddy Test ABG Potassium A-a O2 Difference Respiratory Index Glucose Lactate Liter Flow FiO2 Sodium Potassium Chloride Carbon Dioxide Anion Gap BUN Creatinine Est GFR ( Amer) Est GFR (Non-Af Amer) POC Glucose (mg/dL) 190 H 313 H Random Glucose Calcium Total Bilirubin AST ALT Alkaline Phosphatase Total Creatine Kinase CK-MB (Mass) Troponin I NT-Pro-B Natriuret Pep Total Protein Albumin Globulin Albumin/Globulin Ratio Arterial Blood Potassium Urine Color Urine Clarity Urine pH Ur Specific [place] Urine Protein Urine Glucose (UA) Urine Ketones Urine Blood Urine Nitrate Urine Bilirubin Urine Urobilinogen Ur Leukocyte Esterase Urine WBC (Auto) Urine RBC (Auto) - EKG Data EKG Interpreted by: Myself Assessment & Plan - Assessment and Plan (Free Text) Assessment: Atrial fibrillation rapid at the moment. Recommend d/c midodrine. lopressor for rate control recommend lovenox.
--- NOTE | 2017-11-20 12:18 | CP.PCM.PN ---
Subjective - Date & Time of Evaluation Date of Evaluation: 11/20/17 Time of Evaluation: 12:16 - Subjective Subjective: Nephrology Consultation Note: Assessment: Stable Hypoxic respi failure with pulm congestion/effusions AMS ? cause (r/o infection as etiology): improved A fib with RVR Diabetic chronic Kidney Disease (E11.22) Hypertensive Chronic Kidney Disease (I12.0) End stage renal disease (N18.6) dependence on hemodialysis (Z99.2) (MWF) via AVF Anemia (D64.9), Hyperphosphatemia (E83.39), Secondary Hyperparathyroidism (E21.1 ), HTN (I12.0) Plan: Will plan for HD tomorrow as ordered per MWF schedules. Continue with Nephrovite 1 tab/day. PRBC as needed for anemia. On JOSE CARLOS as epogen with HD, last Hb 10.4 Continue with phos binders home dose, check phos level BP control with meds as ordered. Patient not on RAAS brianne as BP tends to be low side Glycemic control, Dialysis consistent diet Further work up/management as per primary team Dose meds/antibiotics for ESRD status. Avoid fleets enema/magnesium based laxatives. Neuro cardiology evaluation appreciated Thanks for allowing me to participate in care of your patient. Will follow patient with you. Please call if any Qs. had d/w family and team Dr Dylan Escalona Office: [phone] Chief Complaint;change in mental status HPI: Pt is a 77 M with hx of ESRD on hemodialysis (MWF) via left AVF @ [facility] with Dr Yin/Dr Antoine, last dialysis today but longterm, chronic anemia, hyperphosphatemia, secondary hyperparathyroidism, Diabetes Mellitus, hypertension, memory impairment/dementia, recent hospitalization for fall and Rt hip fracture s/p surgery went to rehab presented with complaints of change in mental status from HD unit today/ he was also noted to have low O2 sats pt awake but confused and unable to provide much reliable hx he has been on HD x 1 year ROS: feels better Cardiovascular: No chest pain. Pulmonary: No shortness of breath Gastrointestinal: denies abdominal pain No nausea. No vomiting. no reports of fever Physical Examination: General Appearance: comfortable, in no acute respiratory distress, co-operative . better appearing Vitals reviewed and noted as below Head; Atraumatic, normocephalic ENT: no ulcers no thrush. Tongue is midline. Oropharynx: no rash or ulcers. EYES: Pupils are equal, round and reactive to light accommodation. Eye muscles and extraocular movement intact. Sclera is anicteric. Neck; supple no lymphadenopathy, no thyromegaly or bruit Lungs: Normal respiratory rate/effort. Breath sounds bilateral equal and clear anteriorly Heart: Improved rate. s1s2 normal. No rub or gallop. A fib Extremities: no edema. No varicose veins Neurological: Patient is awake alert follows commands, hx of dementia Skin: Warm and dry. Normal turgor. No rash. Palpitation: Normal elasticity for age Abdomen: Abdomen is soft. Bowel sounds +. There is no abdominal tenderness, no guarding/rigidity or organomegaly Psych:unable MSK: no joint tenderness or swelling. Digits and nails normal, no deformity, Rt hip surgery site looks clean. : kidney or bladder not palpable Access: left AVF Labs/imaging reviewed. Past medical history, past surgical history, family history, social history, allergy reviewed and noted as below Family Hx: no hx of CKD. Non contributory Objective - Vital Signs/Intake and Output Vital Signs (last 24 hours): Temp Pulse Resp BP Pulse Ox 97.7 F 108 H 20 121/82 98 11/20/17 07:30 11/20/17 10:17 11/20/17 07:30 11/20/17 10:17 11/20/17 07:30 - Medications Medications: Current Medications Aspirin (Aspirin Chewable) 81 mg PO DAILY [facility] Last Admin: 11/20/17 10:17 Dose: 81 mg Clopidogrel Bisulfate (Plavix) 75 mg PO DAILY [facility] Last Admin: 11/20/17 10:17 Dose: 75 mg Divalproex Sodium (Depakote Sprinkles) 125 mg PO DAILY [facility] Last Admin: 11/20/17 10:17 Dose: 125 mg Divalproex Sodium (Depakote Dr) 250 mg PO BID [facility] Docusate Sodium (Colace) 100 mg PO BID [facility] Last Admin: 11/20/17 10:17 Dose: 100 mg Donepezil HCl (Aricept) 5 mg PO HS [facility] Last Admin: 11/19/17 22:46 Dose: 5 mg Epoetin Ari (Procrit) 4,000 unit IV F [facility] Last Admin: 11/19/17 19:28 Dose: 4,000 unit Heparin Sodium (Porcine) (Heparin) 5,000 units SC Q12 [facility] Last Admin: 11/20/17 10:17 Dose: 5,000 units Cefepime HCl 1 gm/ Dextrose 50 mls @ 100 mls/hr IVPB Q12H [facility] PRN Reason: Protocol Last Admin: 11/20/17 08:18 Dose: 100 mls/hr Insulin Aspart (Novolog) 0 unit SC ACHS [facility] PRN Reason: Protocol Last Admin: 11/20/17 08:18 Dose: 4 unit Insulin Glargine (Lantus) 10 unit SC HS [facility] Last Admin: 11/19/17 22:48 Dose: Not Given Memantine (Namenda) 5 mg PO BID [facility] Last Admin: 11/20/17 10:17 Dose: 5 mg Metoprolol Succinate (Toprol Xl) 200 mg PO DAILY [facility] Last Admin: 11/20/17 10:17 Dose: 200 mg Mirtazapine (Remeron) 15 mg PO HS [facility] Last Admin: 11/19/17 22:46 Dose: 15 mg Oxycodone HCl (Oxycodone Immediate Release Tab) 5 mg PO Q6 PRN PRN Reason: Pain, moderate (4-7) Rosuvastatin Calcium (Crestor) 5 mg PO [facility] Last Admin: 11/19/17 22:45 Dose: 5 mg Tobramycin Sulfate (Tobrex 0.3% Ophth Soln) 2 drop OS Q6H [facility] Last Admin: 11/20/17 06:42 Dose: 2 drop Vitamin B Complex/Vit C/Folic Acid (Nephro-Jerson) 1 tab PO 0800 [facility] - Labs Labs: 11/19/17 13:35 11/19/17 13:35 PT 12.4 SECONDS (9.7-12.2) H 11/19/17 13:36 INR 1.1 11/19/17 13:36
--- NOTE | 2017-11-20 14:14 | MRI ---
PROCEDURE: MRI BRAIN WITHOUT CONTRAST HISTORY: Stroke COMPARISON: None. TECHNIQUE: Multiplanar, multisequence MR images of the brain were obtained without intravenous contrast enhancement. FINDINGS: HEMORRHAGE: No acute parenchymal, subarachnoid nor extra-axial hemorrhage. No evidence of hemosiderin deposition identified on gradient echo weighted sequence. DWI: No evidence of an acute or early subacute infarction seen on diffusion imaging. . BRAIN PARENCHYMA: Mild to moderate diffuse/confluent chronic periventricular white matter ischemic changes seen extending peripherally into the deep and subcortical white matter both cerebral hemispheres. Additionally, there are scattered chronic appearing bilateral basal nuclei brainstem and left cerebellar lacunar type infarcts as well. Moderate to significant atrophy. VENTRICLES: No obstructive hydrocephalus. CRANIUM: No acute calvarial abnormalities are identified. ORBITS: Changes of bilateral cataract surgery PARANASAL SINUSES/MASTOIDS: Clear VASCULAR SYSTEM: Visualized major vascular flow flow voids at skull base patent. OTHER FINDINGS: None. IMPRESSION: Limited motion degraded study. No evidence of acute intracranial hemorrhage or infarction. . Mild to moderate diffuse/confluent chronic periventricular white matter ischemic changes seen extending peripherally into the deep and subcortical white matter both cerebral hemispheres. Additionally, there are scattered chronic appearing bilateral basal nuclei brainstem and left cerebellar lacunar type infarcts as well. Voids Moderate to significant atrophy.
[2017-11-20 16:53] LABS: MEAN CELL VOLUME 92.6 fL (80.0-94.0); MEAN CORPUSCULAR HEMOGLOBIN 30.1 pg (27.0-31.0); MEAN CORPUSCULAR HGB CONC 32.5 g/dL (33.0-37.0); MEAN PLATELET VOLUME 6.7 fL (7.2-11.7); RBC 3.31 Mil/uL (4.40-5.90); RED CELL DISTRIBUTION WIDTH 16.8 % (11.5-14.5); WHITE BLOOD COUNT 12.2 K/uL (4.8-10.8)
[2017-11-20 17:09] LABS: ALB/GLOB RATIO 0.8 (1.0-2.1); ALBUMIN 2.9 g/dL (3.5-5.0); CALCIUM 8.3 mg/dl (8.6-10.4)
[2017-11-20] MEDS: Divalproex 250 mg DR Tab PO SCH (18:19)
--- NOTE | 2017-11-20 19:28 | CP.PCM.PN ---
Subjective - Date & Time of Evaluation Date of Evaluation: 11/20/17 Time of Evaluation: 11:40 - Subjective Subjective: clinically same Objective - Vital Signs/Intake and Output Vital Signs (last 24 hours): Temp Pulse Resp BP Pulse Ox 97.9 F 87 20 150/74 98 11/20/17 15:05 11/20/17 15:05 11/20/17 15:05 11/20/17 15:05 11/20/17 15:05 Intake and Output: 11/20/17 11/21/17 18:59 06:59 Intake Total 250 Balance 250 - Medications Medications: Current Medications Aspirin (Aspirin Chewable) 81 mg PO DAILY [facility] Last Admin: 11/20/17 10:17 Dose: 81 mg Clopidogrel Bisulfate (Plavix) 75 mg PO DAILY [facility] Last Admin: 11/20/17 10:17 Dose: 75 mg Divalproex Sodium (Depakote Sprinkles) 125 mg PO DAILY [facility] Last Admin: 11/20/17 10:17 Dose: 125 mg Divalproex Sodium (Depakote Dr) 250 mg PO BID [facility] Last Admin: 11/20/17 18:19 Dose: 250 mg Docusate Sodium (Colace) 100 mg PO BID [facility] Last Admin: 11/20/17 18:19 Dose: 100 mg Donepezil HCl (Aricept) 5 mg PO HS [facility] Last Admin: 11/19/17 22:46 Dose: 5 mg Epoetin Ari (Procrit) 4,000 unit IV MWF [facility] Last Admin: 11/19/17 19:28 Dose: 4,000 unit Heparin Sodium (Porcine) (Heparin) 5,000 units SC Q12 [facility] Last Admin: 11/20/17 10:17 Dose: 5,000 units Cefepime HCl 1 gm/ Dextrose 50 mls @ 100 mls/hr IVPB Q12H [facility] PRN Reason: Protocol Last Admin: 11/20/17 08:18 Dose: 100 mls/hr Insulin Aspart (Novolog) 0 unit SC ACHS [facility] PRN Reason: Protocol Last Admin: 11/20/17 18:18 Dose: 6 units Insulin Glargine (Lantus) 10 unit SC HS [facility] Last Admin: 11/19/17 22:48 Dose: Not Given Memantine (Namenda) 5 mg PO BID [facility] Last Admin: 11/20/17 18:19 Dose: 5 mg Metoprolol Succinate (Toprol Xl) 200 mg PO DAILY [facility] Last Admin: 11/20/17 10:17 Dose: 200 mg Mirtazapine (Remeron) 15 mg PO HS [facility] Last Admin: 11/19/17 22:46 Dose: 15 mg Oxycodone HCl (Oxycodone Immediate Release Tab) 5 mg PO Q6 PRN PRN Reason: Pain, moderate (4-7) Rosuvastatin Calcium (Crestor) 5 mg PO HS [facility] Last Admin: 11/19/17 22:45 Dose: 5 mg Tobramycin Sulfate (Tobrex 0.3% Ophth Soln) 2 drop OS Q6H [facility] Last Admin: 11/20/17 18:20 Dose: 2 drop Vitamin B Complex/Vit C/Folic Acid (Nephro-Jerson) 1 tab PO 0800 [facility] - Labs Labs: 11/20/17 16:43 11/20/17 16:43 PT 12.4 SECONDS (9.7-12.2) H 11/19/17 13:36 INR 1.1 11/19/17 13:36 - Constitutional Appears: Well - Head Exam Head Exam: ATRAUMATIC, NORMAL INSPECTION, NORMOCEPHALIC - Eye Exam Eye Exam: EOMI, Normal appearance, PERRL Pupil Exam: NORMAL ACCOMODATION, PERRL - ENT Exam ENT Exam: Mucous Membranes Moist, Normal Exam - Neck Exam Neck Exam: Full ROM, Normal Inspection. absent: Lymphadenopathy - Respiratory Exam Respiratory Exam: Decreased Breath Sounds - Cardiovascular Exam Cardiovascular Exam: REGULAR RHYTHM, +S1, +S2 - GI/Abdominal Exam GI & Abdominal Exam: Soft, Diminished Bowel Sounds - Rectal Exam Rectal Exam: Deferred
--- NOTE | 2017-11-20 20:03 | CARD ---
APPROVED REPORT EKG Measurement Heart [id number] <Conclusion> Atrial fibrillation with rapid ventricular response Anteroseptal infarct, age undetermined ST &Twave abnormality: nonspecific Abnormal ECG
[2017-11-20] MEDS: (Lantus) Insulin Glargine, Recombinant SC SCH (22:29)
[2017-11-21] MEDS: Tobramycin 0.3% OPHT SOLN OS SCH ×4 (00:18→18:20)
--- NOTE | 2017-11-21 07:57 | CP.PCM.PN ---
Subjective - Date & Time of Evaluation Date of Evaluation: 11/21/17 Time of Evaluation: 07:52 - Subjective Subjective: Mr. Jack was seen and examined at the bedside. He is awake, with episode of confusion, unable to state time and place, but able to state person. He denies any headache, dizziness, lightheadedness. He is able to follow simple commands. MRI of the brain showed no evidence of acute intracranial hemorrhage or infarction. Mild to moderate diffuse/ confluent chronic periventricular white matter ischemic changes seen extending peripherally into the deep and subcortical white matter both cerebral hemispheres. 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 Moderate to significant atrophy. Ammonia level is <9. There was no untoward events overnight. Objective - Vital Signs/Intake and Output Vital Signs (last 24 hours): Temp Pulse Resp BP Pulse Ox 98.4 F 90 20 132/58 L 97 11/21/17 04:25 11/21/17 04:25 11/21/17 04:25 11/21/17 04:25 11/21/17 04:25 Intake and Output: 11/21/17 11/21/17 06:59 18:59 Intake Total 300 Output Total 700 Balance -400 - Medications Medications: Current Medications Aspirin (Aspirin Chewable) 81 mg PO DAILY [facility] Last Admin: 11/20/17 10:17 Dose: 81 mg Clopidogrel Bisulfate (Plavix) 75 mg PO DAILY [facility] Last Admin: 11/20/17 10:17 Dose: 75 mg Divalproex Sodium (Depakote Sprinkles) 125 mg PO DAILY [facility] Last Admin: 11/20/17 10:17 Dose: 125 mg Divalproex Sodium (Depakote Dr) 250 mg PO BID [facility] Last Admin: 11/20/17 18:19 Dose: 250 mg Docusate Sodium (Colace) 100 mg PO BID [facility] Last Admin: 11/20/17 18:19 Dose: 100 mg Donepezil HCl (Aricept) 5 mg PO HS [facility] Last Admin: 11/20/17 22:28 Dose: 5 mg Epoetin Ari (Procrit) 4,000 unit IV MWF [facility] Last Admin: 11/19/17 19:28 Dose: 4,000 unit Heparin Sodium (Porcine) (Heparin) 5,000 units SC Q12 [facility] Last Admin: 11/20/17 22:28 Dose: 5,000 units Cefepime HCl 1 gm/ Dextrose 50 mls @ 100 mls/hr IVPB Q12H [facility] PRN Reason: Protocol Last Admin: 11/20/17 22:27 Dose: 100 mls/hr Insulin Aspart (Novolog) 0 unit SC ACHS [facility] PRN Reason: Protocol Last Admin: 11/20/17 22:29 Dose: 3 units Insulin Glargine (Lantus) 10 unit SC [facility] Last Admin: 11/20/17 22:29 Dose: 10 units Memantine (Namenda) 5 mg PO BID [facility] Last Admin: 11/20/17 18:19 Dose: 5 mg Metoprolol Succinate (Toprol Xl) 200 mg PO DAILY [facility] Last Admin: 11/20/17 10:17 Dose: 200 mg Mirtazapine (Remeron) 15 mg PO [facility] Last Admin: 11/20/17 22:28 Dose: 15 mg Oxycodone HCl (Oxycodone Immediate Release Tab) 5 mg PO Q6 PRN PRN Reason: Pain, moderate (4-7) Rosuvastatin Calcium (Crestor) 5 mg PO [facility] Last Admin: 11/20/17 22:28 Dose: 5 mg Tobramycin Sulfate (Tobrex 0.3% Ophth Soln) 2 drop OS Q6H [facility] Last Admin: 11/21/17 06:15 Dose: 2 drop Vitamin B Complex/Vit C/Folic Acid (Nephro-Jerson) 1 tab PO 0800 [facility] - Labs Labs: 11/20/17 16:43 11/20/17 16:43 PT 12.4 SECONDS (9.7-12.2) H 11/19/17 13:36 INR 1.1 11/19/17 13:36 - Constitutional Appears: No Acute Distress - Head Exam Head Exam: NORMAL INSPECTION - Eye Exam Pupil Exam: PERRL - Neurological Exam Neurological Exam: Alert, Awake Neuro motor strength exam: Left Upper Extremity: 4, Right Upper Extremity: 4, Left Lower Extremity: 4, Right Lower Extremity: 3 Additional comments: awake, alert with episode of confusion, follow simple commands. Assessment and Plan (1) Encephalopathy Assessment & Plan: Case discussed with Dr. Smith, continue all current medical regimen. Recommend EEG , treat any underlying infection, electrolyte abnormalities, hydration, keep head of bed elevated , blood pressure and glycemic control. Status: Acute
[2017-11-21] MEDS: (Novolog) Insulin Aspart, Recombinant 100 u/ml 10 ml vial SC SCH ×4 (08:30→22:00)
[2017-11-21] MEDS: Multivitamin Vitamin B Complex (Nephro-Vite) Tab PO SCH (08:31)
[2017-11-21 10:36] LABS: HEMOGLOBIN 8.9 g/dL (12.0-18.0); MEAN CELL VOLUME 92.1 fL (80.0-94.0); MEAN CORPUSCULAR HEMOGLOBIN 30.8 pg (27.0-31.0); MEAN CORPUSCULAR HGB CONC 33.5 g/dL (33.0-37.0); MEAN PLATELET VOLUME 6.8 fL (7.2-11.7); RBC 2.89 Mil/uL (4.40-5.90); RED CELL DISTRIBUTION WIDTH 16.7 % (11.5-14.5); WHITE BLOOD COUNT 11.8 K/uL (4.8-10.8)
[2017-11-21 10:50] LABS: CALCIUM 8.2 mg/dl (8.6-10.4)
[2017-11-21] MEDS: Divalproex 250 mg DR Tab PO SCH ×2 (11:00→17:53)
[2017-11-21] MEDS: EPOETIN ALFA 4,000 UNIT/ML ML Dialysis IV SCH (12:39)
--- NOTE | 2017-11-21 14:53 | CP.PCM.PN ---
Subjective - Date & Time of Evaluation Date of Evaluation: 11/21/17 Time of Evaluation: 14:52 - Subjective Subjective: Nephrology Consultation Note: Assessment: Stable Hypoxic respi failure with pulm congestion/effusions AMS ? cause: improved A fib with RVR Diabetic chronic Kidney Disease (E11.22) Hypertensive Chronic Kidney Disease (I12.0) End stage renal disease (N18.6) dependence on hemodialysis (Z99.2) (MWF) via AVF Anemia (D64.9), Hyperphosphatemia (E83.39), Secondary Hyperparathyroidism (E21.1 ), HTN (I12.0) Plan: HD today as ordered per MWF schedules. Continue with Nephrovite 1 tab/day. PRBC as needed for anemia. On JOSE CARLOS as epogen with HD, last Hb 8.9 Continue with phos binders home dose, check phos level BP control with meds as ordered. Patient not on RAAS brianne as BP tends to be low side Glycemic control, Dialysis consistent diet Further work up/management as per primary team Dose meds/antibiotics for ESRD status. Avoid fleets enema/magnesium based laxatives. Neuro cardiology evaluation appreciated Thanks for allowing me to participate in care of your patient. Will follow patient with you. Please call if any Qs. had d/w family and team Dr Dylan Escalona Office: [phone] HPI: Pt is a 77 M with hx of ESRD on hemodialysis (MWF) via left AVF @ [facility] with Dr Yin/Dr Antoine, last dialysis today but fpc, chronic anemia, hyperphosphatemia, secondary hyperparathyroidism, Diabetes Mellitus, hypertension, memory impairment/dementia, recent hospitalization for fall and Rt hip fracture s/p surgery went to rehab presented with complaints of change in mental status from HD unit today/ he was also noted to have low O2 sats pt awake but confused and unable to provide much reliable hx he has been on HD x 1 year ROS: feels better Cardiovascular: No chest pain. Pulmonary: No shortness of breath Gastrointestinal: denies abdominal pain No nausea. No vomiting. no reports of fever Physical Examination: General Appearance: comfortable, in no acute respiratory distress, co-operative . better appearing Vitals reviewed and noted as below Head; Atraumatic, normocephalic ENT: no ulcers no thrush. Tongue is midline. Oropharynx: no rash or ulcers. EYES: Pupils are equal, round and reactive to light accommodation. Eye muscles and extraocular movement intact. Sclera is anicteric. Neck; supple no lymphadenopathy, no thyromegaly or bruit Lungs: Normal respiratory rate/effort. Breath sounds bilateral equal and clear anteriorly Heart: Improved rate. s1s2 normal. No rub or gallop. A fib Extremities: no edema. No varicose veins Neurological: Patient is awake alert follows commands, hx of dementia Skin: Warm and dry. Normal turgor. No rash. Palpitation: Normal elasticity for age Abdomen: Abdomen is soft. Bowel sounds +. There is no abdominal tenderness, no guarding/rigidity or organomegaly Psych:unable MSK: no joint tenderness or swelling. Digits and nails normal, no deformity, Rt hip surgery site looks clean. : kidney or bladder not palpable Access: left AVF Labs/imaging reviewed. Past medical history, past surgical history, family history, social history, allergy reviewed and noted as below Family Hx: no hx of CKD. Non contributory Objective - Vital Signs/Intake and Output Vital Signs (last 24 hours): Temp Pulse Resp BP Pulse Ox 98 F 101 H 20 109/59 L 98 11/21/17 14:45 11/21/17 14:45 11/21/17 14:45 11/21/17 14:45 11/21/17 14:45 Intake and Output: 11/21/17 11/21/17 06:59 18:59 Intake Total 300 Output Total 700 Balance -400 - Medications Medications: Current Medications Aspirin (Aspirin Chewable) 81 mg PO DAILY [facility] Last Admin: 11/20/17 10:17 Dose: 81 mg Clopidogrel Bisulfate (Plavix) 75 mg PO DAILY [facility] Last Admin: 11/20/17 10:17 Dose: 75 mg Divalproex Sodium (Depakote Dr) 250 mg PO BID [facility] Last Admin: 11/21/17 11:00 Dose: Not Given Docusate Sodium (Colace) 100 mg PO BID [facility] Last Admin: 11/21/17 11:00 Dose: Not Given Donepezil HCl (Aricept) 5 mg PO [facility] Last Admin: 11/20/17 22:28 Dose: 5 mg Epoetin Ari (Procrit) 8,000 unit IV MWF [facility] Last Admin: 11/21/17 12:39 Dose: 8,000 unit Heparin Sodium (Porcine) (Heparin) 5,000 units SC Q12 [facility] Last Admin: 11/21/17 11:00 Dose: Not Given Cefepime HCl 1 gm/ Dextrose 50 mls @ 100 mls/hr IVPB Q12H [facility] PRN Reason: Protocol Last Admin: 11/21/17 08:32 Dose: 100 mls/hr Insulin Aspart (Novolog) 0 unit SC ACHS [facility] PRN Reason: Protocol Last Admin: 11/21/17 08:30 Dose: 8 units Insulin Glargine (Lantus) 10 unit SC HS [facility] Last Admin: 11/20/17 22:29 Dose: 10 units Memantine (Namenda) 5 mg PO BID [facility] Last Admin: 11/21/17 11:00 Dose: Not Given Metoprolol Succinate (Toprol Xl) 200 mg PO DAILY [facility] Last Admin: 11/20/17 10:17 Dose: 200 mg Mirtazapine (Remeron) 15 mg PO [facility] Last Admin: 11/20/17 22:28 Dose: 15 mg Oxycodone HCl (Oxycodone Immediate Release Tab) 5 mg PO Q6 PRN PRN Reason: Pain, moderate (4-7) Rosuvastatin Calcium (Crestor) 5 mg PO [facility] Last Admin: 11/20/17 22:28 Dose: 5 mg Tobramycin Sulfate (Tobrex 0.3% Oph Soln) 2 drop OS Q6H [facility] Last Admin: 11/21/17 06:15 Dose: 2 drop Vitamin B Complex/Vit C/Folic Acid (Nephro-Jerson) 1 tab PO 0800 [facility] Last Admin: 11/21/17 08:31 Dose: 1 tab - Labs Labs: 11/21/17 10:27 11/21/17 10:27 PT 12.4 SECONDS (9.7-12.2) H 11/19/17 13:36 INR 1.1 11/19/17 13:36
[2017-11-21] MEDS: Metoprolol Succinate 200 mg XL Tab PO SCH (15:08)
--- NOTE | 2017-11-21 19:40 | CP.PCM.PN ---
Subjective - Date & Time of Evaluation Date of Evaluation: 11/21/17 Time of Evaluation: 10:40 - Subjective Subjective: clinically same Objective - Vital Signs/Intake and Output Vital Signs (last 24 hours): Temp Pulse Resp BP Pulse Ox 97.4 F L 105 H 18 135/59 L 98 11/21/17 15:05 11/21/17 15:55 11/21/17 15:05 11/21/17 15:05 11/21/17 15:05 Intake and Output: 11/21/17 11/22/17 18:59 06:59 Intake Total 250 Balance 250 - Medications Medications: Current Medications Aspirin (Aspirin Chewable) 81 mg PO DAILY [facility] Last Admin: 11/21/17 15:08 Dose: 81 mg Clopidogrel Bisulfate (Plavix) 75 mg PO DAILY [facility] Last Admin: 11/21/17 15:09 Dose: 75 mg Divalproex Sodium (Depakote Dr) 250 mg PO BID [facility] Last Admin: 11/21/17 17:53 Dose: 250 mg Docusate Sodium (Colace) 100 mg PO BID [facility] Last Admin: 11/21/17 17:54 Dose: 100 mg Donepezil HCl (Aricept) 5 mg PO HS [facility] Last Admin: 11/20/17 22:28 Dose: 5 mg Epoetin Ari (Procrit) 8,000 unit IV MWF [facility] Last Admin: 11/21/17 12:39 Dose: 8,000 unit Heparin Sodium (Porcine) (Heparin) 5,000 units SC Q12 [facility] Last Admin: 11/21/17 11:00 Dose: Not Given Cefepime HCl 1 gm/ Dextrose 50 mls @ 100 mls/hr IVPB Q12H [facility] PRN Reason: Protocol Last Admin: 11/21/17 08:32 Dose: 100 mls/hr Insulin Aspart (Novolog) 0 unit SC ACHS [facility] PRN Reason: Protocol Last Admin: 11/21/17 17:54 Dose: 3 units Insulin Glargine (Lantus) 10 unit SC HS [facility] Last Admin: 11/20/17 22:29 Dose: 10 units Memantine (Namenda) 5 mg PO BID [facility] Last Admin: 11/21/17 17:54 Dose: 5 mg Metoprolol Succinate (Toprol Xl) 200 mg PO DAILY [facility] Last Admin: 11/21/17 15:08 Dose: 200 mg Mirtazapine (Remeron) 15 mg PO HS [facility] Last Admin: 11/20/17 22:28 Dose: 15 mg Oxycodone HCl (Oxycodone Immediate Release Tab) 5 mg PO Q6 PRN PRN Reason: Pain, moderate (4-7) Rosuvastatin Calcium (Crestor) 5 mg PO HS [facility] Last Admin: 11/20/17 22:28 Dose: 5 mg Tobramycin Sulfate (Tobrex 0.3% Ophth Soln) 2 drop OS Q6H [facility] Last Admin: 11/21/17 18:20 Dose: 2 drop Vitamin B Complex/Vit C/Folic Acid (Nephro-Jerson) 1 tab PO 0800 [facility] Last Admin: 11/21/17 08:31 Dose: 1 tab - Labs Labs: 11/21/17 10:27 11/21/17 10:27 PT 12.4 SECONDS (9.7-12.2) H 11/19/17 13:36 INR 1.1 11/19/17 13:36 - Constitutional Appears: Well - Head Exam Head Exam: ATRAUMATIC, NORMAL INSPECTION, NORMOCEPHALIC - Eye Exam Eye Exam: EOMI, Normal appearance, PERRL Pupil Exam: NORMAL ACCOMODATION, PERRL - ENT Exam ENT Exam: Mucous Membranes Moist, Normal Exam - Neck Exam Neck Exam: Full ROM, Normal Inspection. absent: Lymphadenopathy - Respiratory Exam Respiratory Exam: Decreased Breath Sounds - Cardiovascular Exam Cardiovascular Exam: REGULAR RHYTHM, +S1, +S2 - GI/Abdominal Exam GI & Abdominal Exam: Soft, Diminished Bowel Sounds - Rectal Exam Rectal Exam: Deferred
[2017-11-22] MEDS: Tobramycin 0.3% OPHT SOLN OS SCH ×4 (00:34→18:19)
[2017-11-22 06:44] LABS: HEMOGLOBIN 10.3 g/dL (12.0-18.0); MEAN CELL VOLUME 92.6 fL (80.0-94.0); MEAN CORPUSCULAR HEMOGLOBIN 31.4 pg (27.0-31.0); MEAN PLATELET VOLUME 6.9 fL (7.2-11.7); RBC 3.27 Mil/uL (4.40-5.90); RED CELL DISTRIBUTION WIDTH 16.8 % (11.5-14.5); WHITE BLOOD COUNT 12.7 K/uL (4.8-10.8)
[2017-11-22 07:01] LABS: CALCIUM 8.3 mg/dl (8.6-10.4)
[2017-11-22] MEDS: Multivitamin Vitamin B Complex (Nephro-Vite) Tab PO SCH (08:25)
[2017-11-22] MEDS: (Novolog) Insulin Aspart, Recombinant 100 u/ml 10 ml vial SC SCH ×4 (08:25→21:37)
[2017-11-22] MEDS: Divalproex 250 mg DR Tab PO SCH ×2 (09:28→18:15)
[2017-11-22] MEDS: Metoprolol Succinate 200 mg XL Tab PO SCH (09:29)
--- NOTE | 2017-11-22 12:00 | CP.PCM.PN ---
Subjective - Date & Time of Evaluation Date of Evaluation: 11/22/17 Time of Evaluation: 11:55 - Subjective Subjective: Patient denies chest pain. much clearer Objective - Vital Signs/Intake and Output Vital Signs (last 24 hours): Temp Pulse Resp BP Pulse Ox 97.6 F 90 20 124/81 98 11/22/17 07:35 11/22/17 07:35 11/22/17 07:35 11/22/17 07:35 11/22/17 07:35 - Medications Medications: Current Medications Aspirin (Aspirin Chewable) 81 mg PO DAILY [facility] Last Admin: 11/22/17 09:28 Dose: 81 mg Clopidogrel Bisulfate (Plavix) 75 mg PO DAILY [facility] Last Admin: 11/22/17 09:28 Dose: 75 mg Divalproex Sodium (Depakote Dr) 250 mg PO BID [facility] Last Admin: 11/22/17 09:28 Dose: 250 mg Docusate Sodium (Colace) 100 mg PO BID [facility] Last Admin: 11/22/17 09:28 Dose: 100 mg Donepezil HCl (Aricept) 5 mg PO HS [facility] Last Admin: 11/21/17 22:00 Dose: 5 mg Epoetin Ari (Procrit) 8,000 unit IV MWF [facility] Last Admin: 11/21/17 12:39 Dose: 8,000 unit Heparin Sodium (Porcine) (Heparin) 5,000 units SC Q12 [facility] Last Admin: 11/22/17 09:29 Dose: 5,000 units Cefepime HCl 1 gm/ Dextrose 50 mls @ 100 mls/hr IVPB Q12H [facility] PRN Reason: Protocol Last Admin: 11/22/17 08:25 Dose: 100 mls/hr Insulin Aspart (Novolog) 0 unit SC ACHS [facility] PRN Reason: Protocol Last Admin: 11/22/17 08:25 Dose: 4 units Insulin Glargine (Lantus) 10 unit SC HS [facility] Last Admin: 11/20/17 22:29 Dose: 10 units Memantine (Namenda) 5 mg PO BID [facility] Last Admin: 11/22/17 09:28 Dose: 5 mg Metoprolol Succinate (Toprol Xl) 200 mg PO DAILY [facility] Last Admin: 11/22/17 09:29 Dose: 200 mg Mirtazapine (Remeron) 15 mg PO HS [facility] Last Admin: 11/21/17 22:00 Dose: 15 mg Oxycodone HCl (Oxycodone Immediate Release Tab) 5 mg PO Q6 PRN PRN Reason: Pain, moderate (4-7) Rosuvastatin Calcium (Crestor) 5 mg PO HS [facility] Last Admin: 11/21/17 21:59 Dose: 5 mg Tobramycin Sulfate (Tobrex 0.3% Ophth Soln) 2 drop OS Q6H [facility] Last Admin: 11/22/17 06:15 Dose: 2 drop Vitamin B Complex/Vit C/Folic Acid (Nephro-Jerson) 1 tab PO 0800 [facility] Last Admin: 11/22/17 08:25 Dose: 1 tab - Labs Labs: 11/22/17 06:38 11/22/17 06:38 PT 12.4 SECONDS (9.7-12.2) H 11/19/17 13:36 INR 1.1 11/19/17 13:36 - Constitutional Appears: Non-toxic - Head Exam Head Exam: NORMAL INSPECTION - Eye Exam Eye Exam: Normal appearance - ENT Exam ENT Exam: Mucous Membranes Moist - Neck Exam Neck Exam: Full ROM - Respiratory Exam Respiratory Exam: Decreased Breath Sounds - Cardiovascular Exam Cardiovascular Exam: Irregular Rhythm - GI/Abdominal Exam GI & Abdominal Exam: Normal Bowel Sounds - Rectal Exam Rectal Exam: Deferred - Extremities Exam Extremities Exam: Pedal Edema - Back Exam Back Exam: NORMAL INSPECTION - Neurological Exam Neurological Exam: Alert - Psychiatric Exam Psychiatric exam: Normal Affect - Skin Skin Exam: Normal Color Assessment and Plan (1) ESRD (end stage renal disease) on dialysis Status: Acute (2) CAD (coronary artery disease) Assessment & Plan: stable. no angina Status: Acute (3) HTN (hypertension) Assessment & Plan: blood pressure control. Status: Acute (4) Atrial fibrillation Assessment & Plan: rate is controlled. consider anticoagulant therapy Status: Acute
[2017-11-22] MEDS: (Lantus) Insulin Glargine, Recombinant SC SCH ×2 (15:36→21:37)
--- NOTE | 2017-11-22 18:41 | CP.PCM.PN ---
Subjective - Date & Time of Evaluation Date of Evaluation: 11/22/17 Time of Evaluation: 10:20 - Subjective Subjective: clinically same Objective - Vital Signs/Intake and Output Vital Signs (last 24 hours): Temp Pulse Resp BP Pulse Ox 97.6 F 85 20 108/73 98 11/22/17 15:57 11/22/17 16:00 11/22/17 15:57 11/22/17 15:57 11/22/17 15:57 - Medications Medications: Current Medications Aspirin (Aspirin Chewable) 81 mg PO DAILY [facility] Last Admin: 11/22/17 09:28 Dose: 81 mg Clopidogrel Bisulfate (Plavix) 75 mg PO DAILY [facility] Last Admin: 11/22/17 09:28 Dose: 75 mg Divalproex Sodium (Depakote Dr) 250 mg PO BID [facility] Last Admin: 11/22/17 18:15 Dose: 250 mg Docusate Sodium (Colace) 100 mg PO BID [facility] Last Admin: 11/22/17 18:15 Dose: 100 mg Donepezil HCl (Aricept) 5 mg PO HS [facility] Last Admin: 11/21/17 22:00 Dose: 5 mg Epoetin Ari (Procrit) 8,000 unit IV MWF [facility] Last Admin: 11/21/17 12:39 Dose: 8,000 unit Heparin Sodium (Porcine) (Heparin) 5,000 units SC Q12 [facility] Last Admin: 11/22/17 09:29 Dose: 5,000 units Cefepime HCl 1 gm/ Dextrose 50 mls @ 100 mls/hr IVPB Q12H [facility] PRN Reason: Protocol Last Admin: 11/22/17 08:25 Dose: 100 mls/hr Insulin Aspart (Novolog) 0 unit SC ACHS [facility] PRN Reason: Protocol Last Admin: 11/22/17 18:14 Dose: 4 units Insulin Glargine (Lantus) 10 unit SC [facility] Last Admin: 11/22/17 15:36 Dose: Not Given Memantine (Namenda) 5 mg PO BID [facility] Last Admin: 11/22/17 18:15 Dose: 5 mg Metoprolol Succinate (Toprol Xl) 200 mg PO DAILY [facility] Last Admin: 11/22/17 09:29 Dose: 200 mg Mirtazapine (Remeron) 15 mg PO [facility] Last Admin: 11/21/17 22:00 Dose: 15 mg Oxycodone HCl (Oxycodone Immediate Release Tab) 5 mg PO Q6 PRN PRN Reason: Pain, moderate (4-7) Rosuvastatin Calcium (Crestor) 5 mg PO HS [facility] Last Admin: 11/21/17 21:59 Dose: 5 mg Tobramycin Sulfate (Tobrex 0.3% Ophth Soln) 2 drop OS Q6H [facility] Last Admin: 11/22/17 18:19 Dose: 2 drop Vitamin B Complex/Vit C/Folic Acid (Nephro-Jerson) 1 tab PO 0800 [facility] Last Admin: 11/22/17 08:25 Dose: 1 tab - Labs Labs: 11/22/17 06:38 11/22/17 06:38 PT 12.4 SECONDS (9.7-12.2) H 11/19/17 13:36 INR 1.1 11/19/17 13:36 - Constitutional Appears: Well - Head Exam Head Exam: ATRAUMATIC, NORMAL INSPECTION, NORMOCEPHALIC - Eye Exam Eye Exam: EOMI, Normal appearance, PERRL Pupil Exam: NORMAL ACCOMODATION, PERRL - ENT Exam ENT Exam: Mucous Membranes Moist, Normal Exam - Neck Exam Neck Exam: Full ROM, Normal Inspection. absent: Lymphadenopathy - Respiratory Exam Respiratory Exam: Decreased Breath Sounds - Cardiovascular Exam Cardiovascular Exam: REGULAR RHYTHM, +S1, +S2 - GI/Abdominal Exam GI & Abdominal Exam: Soft, Diminished Bowel Sounds - Rectal Exam Rectal Exam: Deferred
--- NOTE | 2017-11-22 21:51 | CP.PCM.PN ---
Subjective - Date & Time of Evaluation Date of Evaluation: 11/22/17 Time of Evaluation: 13:00 - Subjective Subjective: Nephrology Consultation Note: Assessment: Stable Hypoxic respi failure with pulm congestion/effusions AMS ? cause: improved A fib with RVR Diabetic chronic Kidney Disease (E11.22) Hypertensive Chronic Kidney Disease (I12.0) End stage renal disease (N18.6) dependence on hemodialysis (Z99.2) (MWF) via AVF Anemia (D64.9), Hyperphosphatemia (E83.39), Secondary Hyperparathyroidism (E21.1 ), HTN (I12.0) Plan: HD per MWF schedule. Continue with Nephrovite 1 tab/day. PRBC as needed for anemia. On JOSE CARLOS as epogen with HD Continue with phos binders home dose, monitor phos level BP control with meds as ordered. Further work up/management as per primary team Dose meds/antibiotics for ESRD status. Physical Examination: General Appearance: comfortable, in no acute respiratory distress, co-operative Vitals reviewed and noted as below Head; Atraumatic, normocephalic ENT: no ulcers no thrush. EYES:Eye muscles and extraocular movement intact. Sclera is anicteric. Neck; supple no lymphadenopathy, no thyromegaly or bruit Lungs: Normal respiratory rate/effort. Breath sounds bilateral equal and clear anteriorly Heart: Improved rate. s1s2 normal. No rub or gallop. A fib Extremities: no edema. No varicose veins Neurological: Patient is awake alert follows commands, hx of dementia Skin: Warm and dry. Normal turgor. Abdomen: Abdomen is soft. Bowel sounds +. There is no abdominal tenderness, no guarding/rigidity or organomegaly Psych:unable MSK: no joint tenderness or swelling. Access: left AVF Objective - Vital Signs/Intake and Output Vital Signs (last 24 hours): Temp Pulse Resp BP Pulse Ox 97.6 F 85 20 108/73 98 11/22/17 15:57 11/22/17 16:00 11/22/17 15:57 11/22/17 15:57 11/22/17 15:57 - Medications Medications: Current Medications Aspirin (Aspirin Chewable) 81 mg PO DAILY [facility] Last Admin: 11/22/17 09:28 Dose: 81 mg Clopidogrel Bisulfate (Plavix) 75 mg PO DAILY [facility] Last Admin: 11/22/17 09:28 Dose: 75 mg Divalproex Sodium (Depakote Dr) 250 mg PO BID [facility] Last Admin: 11/22/17 18:15 Dose: 250 mg Docusate Sodium (Colace) 100 mg PO BID [facility] Last Admin: 11/22/17 18:15 Dose: 100 mg Donepezil HCl (Aricept) 5 mg PO HS [facility] Last Admin: 11/22/17 21:37 Dose: 5 mg Epoetin Ari (Procrit) 8,000 unit IV MWF [facility] Last Admin: 11/21/17 12:39 Dose: 8,000 unit Heparin Sodium (Porcine) (Heparin) 5,000 units SC Q12 [facility] Last Admin: 11/22/17 21:37 Dose: 5,000 units Cefepime HCl 1 gm/ Dextrose 50 mls @ 100 mls/hr IVPB Q12H [facility] PRN Reason: Protocol Last Admin: 11/22/17 20:21 Dose: 100 mls/hr Insulin Aspart (Novolog) 0 unit SC ACHS [facility] PRN Reason: Protocol Last Admin: 11/22/17 21:37 Dose: 2 units Insulin Glargine (Lantus) 10 unit SC [facility] Last Admin: 11/22/17 21:37 Dose: 10 units Memantine (Namenda) 5 mg PO BID [facility] Last Admin: 11/22/17 18:15 Dose: 5 mg Metoprolol Succinate (Toprol Xl) 200 mg PO DAILY [facility] Last Admin: 11/22/17 09:29 Dose: 200 mg Mirtazapine (Remeron) 15 mg PO [facility] Last Admin: 11/22/17 21:36 Dose: 15 mg Oxycodone HCl (Oxycodone Immediate Release Tab) 5 mg PO Q6 PRN PRN Reason: Pain, moderate (4-7) Rosuvastatin Calcium (Crestor) 5 mg PO [facility] Last Admin: 11/22/17 21:38 Dose: 5 mg Tobramycin Sulfate (Tobrex 0.3% Ophth Soln) 2 drop OS Q6H [facility] Last Admin: 11/22/17 18:19 Dose: 2 drop Vitamin B Complex/Vit C/Folic Acid (Nephro-Jerson) 1 tab PO 0800 [facility] Last Admin: 11/22/17 08:25 Dose: 1 tab - Labs Labs: 11/22/17 06:38 11/22/17 06:38 PT 12.4 SECONDS (9.7-12.2) H 11/19/17 13:36 INR 1.1 11/19/17 13:36
[2017-11-23] MEDS: Tobramycin 0.3% OPHT SOLN OS SCH ×4 (02:05→19:14)
[2017-11-23] MEDS: (Novolog) Insulin Aspart, Recombinant 100 u/ml 10 ml vial SC SCH ×4 (08:00→21:44)
[2017-11-23] MEDS: Multivitamin Vitamin B Complex (Nephro-Vite) Tab PO SCH (08:01)
[2017-11-23] MEDS: Divalproex 250 mg DR Tab PO SCH ×2 (09:26→19:15)
[2017-11-23] MEDS: Metoprolol Succinate 200 mg XL Tab PO SCH (09:27)
--- NOTE | 2017-11-23 16:11 | CP.PCM.PN ---
Subjective - Date & Time of Evaluation Date of Evaluation: 11/23/17 Time of Evaluation: 10:20 - Subjective Subjective: clinically same Objective - Vital Signs/Intake and Output Vital Signs (last 24 hours): Temp Pulse Resp BP Pulse Ox 97.4 F L 61 20 137/68 95 11/23/17 07:00 11/23/17 12:24 11/23/17 07:00 11/23/17 12:24 11/23/17 07:00 Intake and Output: 11/23/17 11/23/17 06:59 18:59 Intake Total 350 Balance 350 - Medications Medications: Current Medications Aspirin (Aspirin Chewable) 81 mg PO DAILY [facility] Last Admin: 11/23/17 09:26 Dose: 81 mg Clopidogrel Bisulfate (Plavix) 75 mg PO DAILY [facility] Last Admin: 11/23/17 09:26 Dose: 75 mg Divalproex Sodium (Depakote Dr) 250 mg PO BID [facility] Last Admin: 11/23/17 09:26 Dose: 250 mg Docusate Sodium (Colace) 100 mg PO BID [facility] Last Admin: 11/23/17 09:26 Dose: 100 mg Donepezil HCl (Aricept) 5 mg PO HS [facility] Last Admin: 11/22/17 21:37 Dose: 5 mg Epoetin Ari (Procrit) 8,000 unit IV MWF [facility] Last Admin: 11/21/17 12:39 Dose: 8,000 unit Cefepime HCl 1 gm/ Dextrose 50 mls @ 100 mls/hr IVPB Q12H [facility] PRN Reason: Protocol Last Admin: 11/23/17 08:01 Dose: 100 mls/hr Insulin Aspart (Novolog) 0 unit SC ACHS [facility] PRN Reason: Protocol Last Admin: 11/23/17 12:22 Dose: 2 units Insulin Glargine (Lantus) 10 unit SC HS [facility] Last Admin: 11/22/17 21:37 Dose: 10 units Memantine (Namenda) 5 mg PO BID [facility] Last Admin: 11/23/17 09:26 Dose: 5 mg Metoprolol Succinate (Toprol Xl) 200 mg PO DAILY [facility] Mirtazapine (Remeron) 15 mg PO HS [facility] Last Admin: 11/22/17 21:36 Dose: 15 mg Oxycodone HCl (Oxycodone Immediate Release Tab) 5 mg PO Q6 PRN PRN Reason: Pain, moderate (4-7) Rosuvastatin Calcium (Crestor) 5 mg PO HS [facility] Last Admin: 11/22/17 21:38 Dose: 5 mg Tobramycin Sulfate (Tobrex 0.3% Ophth Soln) 2 drop OS Q6H [facility] Last Admin: 11/23/17 12:22 Dose: 2 drop Vitamin B Complex/Vit C/Folic Acid (Nephro-Jerson) 1 tab PO 0800 [facility] Last Admin: 11/23/17 08:01 Dose: 1 tab - Labs Labs: 11/22/17 06:38 11/22/17 06:38 PT 12.4 SECONDS (9.7-12.2) H 11/19/17 13:36 INR 1.1 11/19/17 13:36 - Constitutional Appears: Well - Head Exam Head Exam: ATRAUMATIC, NORMAL INSPECTION, NORMOCEPHALIC - Eye Exam Eye Exam: EOMI, Normal appearance, PERRL Pupil Exam: NORMAL ACCOMODATION, PERRL - ENT Exam ENT Exam: Mucous Membranes Moist, Normal Exam - Neck Exam Neck Exam: Full ROM, Normal Inspection. absent: Lymphadenopathy - Respiratory Exam Respiratory Exam: Decreased Breath Sounds - Cardiovascular Exam Cardiovascular Exam: REGULAR RHYTHM, +S1, +S2 - GI/Abdominal Exam GI & Abdominal Exam: Soft, Diminished Bowel Sounds - Rectal Exam Rectal Exam: Deferred
[2017-11-23] MEDS: (Lantus) Insulin Glargine, Recombinant SC SCH (22:10)
[2017-11-24] MEDS: Tobramycin 0.3% OPHT SOLN OS SCH ×4 (01:38→18:25)
[2017-11-24] MEDS: Multivitamin Vitamin B Complex (Nephro-Vite) Tab PO SCH (08:26)
[2017-11-24] MEDS: (Novolog) Insulin Aspart, Recombinant 100 u/ml 10 ml vial SC SCH ×4 (08:27→21:10)
--- NOTE | 2017-11-24 08:37 | CP.PCM.PN ---
Subjective - Date & Time of Evaluation Date of Evaluation: 11/24/17 Time of Evaluation: 08:35 - Subjective Subjective: Mr. Jack was seen and examined at the bedside. He is awake, able to answer few questions, but has episode of confusion. He keeps on reaching the air, removes his gown, but able to redirect accordingly. This was a decline from previous examination. There was no untoward events overnight. Objective - Vital Signs/Intake and Output Vital Signs (last 24 hours): Temp Pulse Resp BP Pulse Ox 98.4 F 79 20 128/77 97 11/23/17 23:20 11/24/17 04:00 11/23/17 23:20 11/23/17 23:20 11/23/17 23:20 Intake and Output: 11/24/17 11/24/17 06:59 18:59 Intake Total 150 Output Total 200 Balance -50 - Medications Medications: Current Medications Aspirin (Aspirin Chewable) 81 mg PO DAILY [facility] Last Admin: 11/23/17 09:26 Dose: 81 mg Clopidogrel Bisulfate (Plavix) 75 mg PO DAILY [facility] Last Admin: 11/23/17 09:26 Dose: 75 mg Divalproex Sodium (Depakote Dr) 250 mg PO BID [facility] Last Admin: 11/23/17 19:15 Dose: 250 mg Docusate Sodium (Colace) 100 mg PO BID [facility] Last Admin: 11/23/17 19:15 Dose: 100 mg Donepezil HCl (Aricept) 5 mg PO [facility] Last Admin: 11/23/17 22:10 Dose: 5 mg Epoetin Ari (Procrit) 8,000 unit IV MWF [facility] Last Admin: 11/21/17 12:39 Dose: 8,000 unit Heparin Sodium (Porcine) (Heparin) 5,000 units SC Q12 [facility] Last Admin: 11/23/17 22:10 Dose: 5,000 units Cefepime HCl 1 gm/ Dextrose 50 mls @ 100 mls/hr IVPB Q12H [facility] PRN Reason: Protocol Last Admin: 11/24/17 08:26 Dose: 100 mls/hr Insulin Aspart (Novolog) 0 unit SC ACHS [facility] PRN Reason: Protocol Last Admin: 11/24/17 08:27 Dose: 2 units Insulin Glargine (Lantus) 10 unit SC [facility] Last Admin: 11/23/17 22:10 Dose: 10 units Memantine (Namenda) 5 mg PO BID [facility] Last Admin: 11/23/17 19:15 Dose: 5 mg Metoprolol Succinate (Toprol Xl) 200 mg PO DAILY [facility] Mirtazapine (Remeron) 15 mg PO [facility] Last Admin: 11/23/17 22:10 Dose: 15 mg Quetiapine Fumarate (Seroquel) 25 mg PO ONCE ONE Stop: 11/24/17 08:23 Rosuvastatin Calcium (Crestor) 5 mg PO [facility] Last Admin: 11/23/17 22:10 Dose: 5 mg Tobramycin Sulfate (Tobrex 0.3% Ophth Soln) 2 drop OS Q6H [facility] Last Admin: 11/24/17 06:20 Dose: 2 drop Vitamin B Complex/Vit C/Folic Acid (Nephro-Jerson) 1 tab PO 0800 [facility] Last Admin: 11/24/17 08:26 Dose: 1 tab - Labs Labs: 11/22/17 06:38 11/22/17 06:38 PT 12.4 SECONDS (9.7-12.2) H 11/19/17 13:36 INR 1.1 11/19/17 13:36 - Constitutional Appears: No Acute Distress - Head Exam Head Exam: NORMAL INSPECTION - Eye Exam Pupil Exam: PERRL - Neurological Exam Neurological Exam: Awake Neuro motor strength exam: Left Upper Extremity: 4, Right Upper Extremity: 4, Left Lower Extremity: 3, Right Lower Extremity: 3 Additional comments: confused unable to participates during assessment, moves all extremities. Assessment and Plan (1) Encephalopathy Assessment & Plan: Case discussed with Dr. Swanson, continue all current medical regimen. Recommend CT scan of the head without contrast may give seroqueal 25 mg PO for one dose if patient continue to be restless, valproic level in am, treat any electrolyte abnormalities. Pending EEG result. Status: Acute
[2017-11-24] MEDS: Divalproex 250 mg DR Tab PO SCH ×3 (09:44→20:53)
[2017-11-24] MEDS: Metoprolol Succinate 100 mg XL Tab PO SCH (09:45)
--- NOTE | 2017-11-24 10:38 | CP.PCM.CON ---
History of Present Illness - History of Present Illness History of Present Illness: Orthopedic consultation Dr. Perry 77M 12 days s/p right hip IM nailing for intertrochanteric fracture, readmitted for AMS. Patient says "I don't feel so good" but does not answer questions appropriately at this time. He follows commands. Denies pain in hip/leg. Review of Systems - Review of Systems Systems not reviewed;Unavailable: Dementia, Altered Mental Status Past Patient History - Past Medical History & Family History Past Medical History?: Yes - Past Social History Smoking Status: Light Smoker < 10 Cigarettes Daily - CARDIAC Hx Hypertension: Yes - PULMONARY Hx Respiratory Disorders: Yes Hx Pneumonia: Yes - NEUROLOGICAL Hx Dementia: Yes - HEENT Hx HEENT Problems: Yes Hx Cataracts: Yes (had suegry on both eyes) - RENAL Hx Renal Failure: Yes (Renal disease, AV shunt, HD) - ENDOCRINE/METABOLIC Hx Diabetes Mellitus Type 1: Yes - HEMATOLOGICAL/ONCOLOGICAL Hx Anemia: Yes - INTEGUMENTARY Hx Dermatological Problems: Yes Other/Comment: sacral pressure sore 3cmx1.5cm - MUSCULOSKELETAL/RHEUMATOLOGICAL Hx Arthritis: Yes - GASTROINTESTINAL Hx Gastrointestinal Disorders: Yes Hx Constipation: Yes - GENITOURINARY/GYNECOLOGICAL Hx Genitourinary Disorders: Yes Hx Incontinence: Yes - PSYCHIATRIC Hx Substance Use: No - SURGICAL HISTORY Hx Surgeries: Yes Hx Arteriovenous Shunt: Yes (left arm) Hx Cardiac Catheterization: Yes (2004) Hx Orthopedic Surgery: Yes (rt leg) - ANESTHESIA Hx Anesthesia: Yes Hx Anesthesia Reactions: No Hx Malignant Hyperthermia: No Meds Allergies/Adverse Reactions: Allergies Allergy/AdvReac Type Severity Reaction Status Date / Time No Known Allergies Allergy Verified 11/19/17 12:30 - Medications Medications: Current Medications Aspirin (Aspirin Chewable) 81 mg PO DAILY [facility] Last Admin: 11/24/17 09:44 Dose: 81 mg Clopidogrel Bisulfate (Plavix) 75 mg PO DAILY [facility] Last Admin: 11/24/17 09:44 Dose: 75 mg Divalproex Sodium (Depakote Dr) 250 mg PO BID [facility] Last Admin: 11/24/17 09:44 Dose: 250 mg Docusate Sodium (Colace) 100 mg PO BID [facility] Last Admin: 11/24/17 09:44 Dose: 100 mg Donepezil HCl (Aricept) 5 mg PO [facility] Last Admin: 11/23/17 22:10 Dose: 5 mg Epoetin Ari (Procrit) 8,000 unit IV MWF [facility] Last Admin: 11/21/17 12:39 Dose: 8,000 unit Heparin Sodium (Porcine) (Heparin) 5,000 units SC Q12 [facility] Last Admin: 11/24/17 09:45 Dose: 5,000 units Cefepime HCl 1 gm/ Dextrose 50 mls @ 100 mls/hr IVPB Q12H [place] PRN Reason: Protocol Last Admin: 11/24/17 08:26 Dose: 100 mls/hr Insulin Aspart (Novolog) 0 unit SC ACHS [facility] PRN Reason: Protocol Last Admin: 11/24/17 08:27 Dose: 2 units Insulin Glargine (Lantus) 10 unit SC HS [facility] Last Admin: 11/23/17 22:10 Dose: 10 units Memantine (Namenda) 5 mg PO BID [facility] Last Admin: 11/24/17 09:44 Dose: 5 mg Metoprolol Succinate (Toprol Xl) 200 mg PO DAILY [facility] Last Admin: 11/24/17 09:45 Dose: Not Given Mirtazapine (Remeron) 15 mg PO [facility] Last Admin: 11/23/17 22:10 Dose: 15 mg Rosuvastatin Calcium (Crestor) 5 mg PO [facility] Last Admin: 11/23/17 22:10 Dose: 5 mg Tobramycin Sulfate (Tobrex 0.3% Ophth Soln) 2 drop OS Q6H [facility] Last Admin: 11/24/17 06:20 Dose: 2 drop Vitamin B Complex/Vit C/Folic Acid (Nephro-Jerson) 1 tab PO 0800 [facility] Last Admin: 11/24/17 08:26 Dose: 1 tab Physical Exam - Constitutional Appears: No Acute Distress - Back Exam Additional comments: RLE: incisions intact, dry, no erythema, no swelling to thigh or leg, calves soft NT neg homans +DP/PT pulses, +ROM ankle/toes, senation intact Results - Vital Signs Recent Vital Signs: Last Vital Signs Temp 97.7 F 11/24/17 07:00 Pulse 86 11/24/17 08:00 Resp 20 11/24/17 07:00 BP 139/65 11/24/17 07:00 Pulse Ox 97 11/24/17 07:00 - Labs Result Diagrams: 11/22/17 06:38 06/09/18 06:38 Labs: Laboratory Results - last 24 hr 11/23/17 11/23/17 11/23/17 06:14 11:05 17:00 POC Glucose (mg/dL) 212 H 151 H 97 11/23/17 11/23/17 11/24/17 19:11 21:14 02:43 POC Glucose (mg/dL) 103 129 H 157 H 11/24/17 06:24 POC Glucose (mg/dL) 187 H Assessment & Plan (1) Closed intertrochanteric fracture of right hip Assessment and Plan: POD#11 s/p closed reduction/IM nailing -f/u xrays -VTE proph, venodyones -PT/OT -ortho stable -jt to remain for 4-[address] Perry -d/w Dr. Perry, agrees with above Status: Acute
--- NOTE | 2017-11-24 10:41 | CT ---
PROCEDURE: CT HEAD WITHOUT CONTRAST. HISTORY: change of mental status COMPARISON: 11/19/2017 TECHNIQUE: Axial computed tomography images were obtained through the head/brain without intravenous contrast. Radiation dose: Total exam DLP = 1190.96 mGy-cm. This CT exam was performed using one or more of the following dose reduction techniques: Automated exposure control, adjustment of the mA and/or kV according to patient size, and/or use of iterative reconstruction technique. FINDINGS: HEMORRHAGE: No intracranial hemorrhage. BRAIN: No mass effect or edema. Small old bilateral basal ganglia and thalamic lacunar infarcts. Remote ischemic change left geetha. Tiny old left cerebellar lacunar infarct. No evidence of acute infarct. Moderate periventricular/deep white matter microvascular ischemic change. VENTRICLES: Unremarkable. No hydrocephalus. CALVARIUM: Unremarkable. PARANASAL SINUSES: Unremarkable as visualized. No significant inflammatory changes. MASTOID AIR CELLS: Unremarkable as visualized. No inflammatory changes. OTHER FINDINGS: None. IMPRESSION: No intracranial mass, hemorrhage or evidence of acute infarct. Chronic white matter ischemic change and small old lacunar infarcts. No significant change from 11/19/2017.
[2017-11-24] MEDS: EPOETIN ALFA 4,000 UNIT/ML ML Dialysis IV SCH (12:15)
--- NOTE | 2017-11-24 15:22 | CP.PCM.PN ---
Subjective - Date & Time of Evaluation Date of Evaluation: 11/24/17 Time of Evaluation: 15:21 - Subjective Subjective: Nephrology Consultation Note: Assessment: Stable Hypoxic respi failure with pulm congestion/effusions AMS ? cause: improved A fib with RVR Diabetic chronic Kidney Disease (E11.22) Hypertensive Chronic Kidney Disease (I12.0) End stage renal disease (N18.6) dependence on hemodialysis (Z99.2) (MWF) via AVF Anemia (D64.9), Hyperphosphatemia (E83.39), Secondary Hyperparathyroidism (E21.1 ), HTN (I12.0) Plan: HD today as ordered per MWF schedules. Continue with Nephrovite 1 tab/day. PRBC as needed for anemia. On JOSE CARLOS as epogen with HD, last Hb 10.3 Continue with phos binders home dose, check phos level BP control with meds as ordered. Patient not on RAAS brianne as BP tends to be low side Glycemic control, Dialysis consistent diet Further work up/management as per primary team Dose meds/antibiotics for ESRD status. Avoid fleets enema/magnesium based laxatives. Neuro cardiology evaluation appreciated Thanks for allowing me to participate in care of your patient. Will follow patient with you. Please call if any Qs. had d/w family and team Dr Dylan Escalona Office: [phone] HPI: Pt is a 77 M with hx of ESRD on hemodialysis (MWF) via left AVF @ [facility] with Dr Yin/Dr Antoine, last dialysis today but group home, chronic anemia, hyperphosphatemia, secondary hyperparathyroidism, Diabetes Mellitus, hypertension, memory impairment/dementia, recent hospitalization for fall and Rt hip fracture s/p surgery went to rehab presented with complaints of change in mental status from HD unit today/ he was also noted to have low O2 sats pt awake but confused and unable to provide much reliable hx he has been on HD x 1 year ROS: feels better Cardiovascular: No chest pain. Pulmonary: No shortness of breath Gastrointestinal: denies abdominal pain No nausea. No vomiting. no reports of fever Physical Examination: seen on HD General Appearance: comfortable, in no acute respiratory distress, co-operative . better appearing Vitals reviewed and noted as below Head; Atraumatic, normocephalic ENT: no ulcers no thrush. Tongue is midline. Oropharynx: no rash or ulcers. EYES: Pupils are equal, round and reactive to light accommodation. Eye muscles and extraocular movement intact. Sclera is anicteric. Neck; supple no lymphadenopathy, no thyromegaly or bruit Lungs: Normal respiratory rate/effort. Breath sounds bilateral equal and clear anteriorly Heart: Improved rate. s1s2 normal. No rub or gallop. A fib Extremities: no edema. No varicose veins Neurological: Patient is awake alert follows commands, hx of dementia Skin: Warm and dry. Normal turgor. No rash. Palpitation: Normal elasticity for age Abdomen: Abdomen is soft. Bowel sounds +. There is no abdominal tenderness, no guarding/rigidity or organomegaly Psych: unable MSK: no joint tenderness or swelling. Digits and nails normal, no deformity, Rt hip surgery site looks clean. : kidney or bladder not palpable Access: left AVF Labs/imaging reviewed. Past medical history, past surgical history, family history, social history, allergy reviewed and noted as below Family Hx: no hx of CKD. Non contributory Objective - Vital Signs/Intake and Output Vital Signs (last 24 hours): Temp Pulse Resp BP Pulse Ox 97.2 F L 86 16 125/72 100 11/24/17 12:00 11/24/17 13:00 11/24/17 13:00 11/24/17 13:00 11/24/17 13:00 Intake and Output: 11/24/17 11/24/17 06:59 18:59 Intake Total 150 Output Total 200 Balance -50 - Medications Medications: Current Medications Aspirin (Aspirin Chewable) 81 mg PO DAILY [facility] Last Admin: 11/24/17 09:44 Dose: 81 mg Clopidogrel Bisulfate (Plavix) 75 mg PO DAILY [facility] Last Admin: 11/24/17 09:44 Dose: 75 mg Divalproex Sodium (Depakote Dr) 250 mg PO BID [facility] Last Admin: 11/24/17 09:44 Dose: 250 mg Docusate Sodium (Colace) 100 mg PO BID [facility] Last Admin: 11/24/17 09:44 Dose: 100 mg Donepezil HCl (Aricept) 5 mg PO HS [facility] Last Admin: 11/23/17 22:10 Dose: 5 mg Epoetin Ari (Procrit) 8,000 unit IV MWF [facility] Last Admin: 11/24/17 12:15 Dose: 8,000 unit Heparin Sodium (Porcine) (Heparin) 5,000 units SC Q12 [facility] Last Admin: 11/24/17 09:45 Dose: 5,000 units Cefepime HCl 1 gm/ Dextrose 50 mls @ 100 mls/hr IVPB Q12H [facility] PRN Reason: Protocol Last Admin: 11/24/17 08:26 Dose: 100 mls/hr Insulin Aspart (Novolog) 0 unit SC ACHS [facility] PRN Reason: Protocol Last Admin: 11/24/17 14:43 Dose: Not Given Insulin Glargine (Lantus) 10 unit SC HS [facility] Last Admin: 11/23/17 22:10 Dose: 10 units Memantine (Namenda) 5 mg PO BID [facility] Last Admin: 11/24/17 09:44 Dose: 5 mg Metoprolol Succinate (Toprol Xl) 200 mg PO DAILY [facility] Last Admin: 11/24/17 09:45 Dose: Not Given Mirtazapine (Remeron) 15 mg PO [facility] Last Admin: 11/23/17 22:10 Dose: 15 mg Rosuvastatin Calcium (Crestor) 5 mg PO HS [facility] Last Admin: 11/23/17 22:10 Dose: 5 mg Tobramycin Sulfate (Tobrex 0.3% [facility]) 2 drop OS Q6H [facility] Last Admin: 11/24/17 14:44 Dose: Not Given Vitamin B Complex/Vit C/Folic Acid (Nephro-Jerson) 1 tab PO 0800 [facility] Last Admin: 11/24/17 08:26 Dose: 1 tab - Labs Labs: 11/22/17 06:38 11/22/17 06:38 PT 12.4 SECONDS (9.7-12.2) H 11/19/17 13:36 INR 1.1 11/19/17 13:36
--- NOTE | 2017-11-24 19:06 | CP.PCM.PN ---
Subjective - Date & Time of Evaluation Date of Evaluation: 11/24/17 Time of Evaluation: 10:00 - Subjective Subjective: clinically same Objective - Vital Signs/Intake and Output Vital Signs (last 24 hours): Temp Pulse Resp BP Pulse Ox 97.2 F L 85 20 120/60 98 11/24/17 15:45 11/24/17 15:45 11/24/17 15:45 11/24/17 15:45 11/24/17 15:45 - Medications Medications: Current Medications Aspirin (Aspirin Chewable) 81 mg PO DAILY [facility] Last Admin: 11/24/17 09:44 Dose: 81 mg Clopidogrel Bisulfate (Plavix) 75 mg PO DAILY [facility] Last Admin: 11/24/17 09:44 Dose: 75 mg Divalproex Sodium (Depakote Dr) 250 mg PO BID [facility] Last Admin: 11/24/17 18:25 Dose: 250 mg Docusate Sodium (Colace) 100 mg PO BID [facility] Last Admin: 11/24/17 18:25 Dose: 100 mg Donepezil HCl (Aricept) 5 mg PO HS [facility] Last Admin: 11/23/17 22:10 Dose: 5 mg Epoetin Ari (Procrit) 8,000 unit IV MWF [facility] Last Admin: 11/24/17 12:15 Dose: 8,000 unit Heparin Sodium (Porcine) (Heparin) 5,000 units SC Q12 [facility] Last Admin: 11/24/17 09:45 Dose: 5,000 units Cefepime HCl 1 gm/ Dextrose 50 mls @ 100 mls/hr IVPB Q12H [facility] PRN Reason: Protocol Last Admin: 11/24/17 08:26 Dose: 100 mls/hr Insulin Aspart (Novolog) 0 unit SC ACHS [facility] PRN Reason: Protocol Last Admin: 11/24/17 18:27 Dose: Not Given Insulin Glargine (Lantus) 10 unit SC HS [facility] Last Admin: 11/23/17 22:10 Dose: 10 units Memantine (Namenda) 5 mg PO BID [facility] Last Admin: 11/24/17 18:25 Dose: 5 mg Metoprolol Succinate (Toprol Xl) 200 mg PO DAILY [facility] Last Admin: 11/24/17 09:45 Dose: Not Given Mirtazapine (Remeron) 15 mg PO HS [facility] Last Admin: 11/23/17 22:10 Dose: 15 mg Rosuvastatin Calcium (Crestor) 5 mg PO HS [facility] Last Admin: 11/23/17 22:10 Dose: 5 mg Tobramycin Sulfate (Tobrex 0.3% [facility]) 2 drop OS Q6H [facility] Last Admin: 11/24/17 18:25 Dose: 2 drop Vitamin B Complex/Vit C/Folic Acid (Nephro-Jerson) 1 tab PO 0800 [facility] Last Admin: 11/24/17 08:26 Dose: 1 tab - Labs Labs: 11/22/17 06:38 11/22/17 06:38 PT 12.4 SECONDS (9.7-12.2) H 11/19/17 13:36 INR 1.1 11/19/17 13:36 - Constitutional Appears: Well - Head Exam Head Exam: ATRAUMATIC, NORMAL INSPECTION, NORMOCEPHALIC - Eye Exam Eye Exam: EOMI, Normal appearance, PERRL Pupil Exam: NORMAL ACCOMODATION, PERRL - ENT Exam ENT Exam: Mucous Membranes Moist, Normal Exam - Neck Exam Neck Exam: Full ROM, Normal Inspection. absent: Lymphadenopathy - Respiratory Exam Respiratory Exam: Decreased Breath Sounds - Cardiovascular Exam Cardiovascular Exam: REGULAR RHYTHM, +S1, +S2 - GI/Abdominal Exam GI & Abdominal Exam: Soft, Diminished Bowel Sounds - Rectal Exam Rectal Exam: Deferred Assessment and Plan (1) Altered mental status Status: Acute (2) Atrial fibrillation Status: Acute (3) CHF exacerbation Status: Acute (4) ESRD (end stage renal disease) on dialysis Status: Acute (5) Encephalopathy Status: Acute (6) Pleural effusion Status: Acute (7) Acute blood loss anemia Status: Acute (8) Acute conjunctivitis, left eye Status: Acute (9) CAD (coronary artery disease) Status: Acute (10) Closed intertrochanteric fracture of right hip Status: Acute (11) Frequent falls Status: Acute (12) HTN (hypertension) Status: Acute (13) Hip fracture, right Status: Acute - Assessment and Plan (Free Text) Plan: Worsening WBC Patient's confusion is getting worse onset Spoke to the family On IV antibiotic May need to change IV antibiotic ID consult Continue same medications GI prophylaxis DVT prophylaxis 75 Vancomycin Continue with
[2017-11-24] MEDS: (Lantus) Insulin Glargine, Recombinant SC SCH (21:04)
[2017-11-25] MEDS: Tobramycin 0.3% OPHT SOLN OS SCH ×4 (00:14→18:15)
--- NOTE | 2017-11-25 07:19 | CP.PCM.PN ---
Subjective - Date & Time of Evaluation Date of Evaluation: 11/25/17 Time of Evaluation: 11:00 - Subjective Subjective: clinically same no acute distress iv rx in progress Objective - Vital Signs/Intake and Output Vital Signs (last 24 hours): Temp Pulse Resp BP Pulse Ox 98.2 F 106 H 20 105/64 99 11/24/17 23:15 11/24/17 23:30 11/24/17 23:15 11/24/17 23:15 11/24/17 23:15 Intake and Output: 11/25/17 11/25/17 06:59 18:59 Intake Total 200 Balance 200 - Medications Medications: Current Medications Aspirin (Aspirin Chewable) 81 mg PO DAILY [facility]S [facility] Last Admin: 11/24/17 09:44 Dose: 81 mg Clopidogrel Bisulfate (Plavix) 75 mg PO DAILY [facility]S [facility] Last Admin: 11/24/17 09:44 Dose: 75 mg Divalproex Sodium (Depakote Dr) 250 mg PO BID [facility] 234 B[facility]S [facility] Last Admin: 11/24/17 20:53 Dose: Not Given Docusate Sodium (Colace) 100 mg PO BID [facility] 234 B[facility]S [facility] Last Admin: 11/24/17 20:53 Dose: Not Given Donepezil HCl (Aricept) 5 mg PO [facility] Last Admin: 11/24/17 21:04 Dose: Not Given Epoetin Ari (Procrit) 8,000 unit IV [facility] Last Admin: 11/24/17 12:15 Dose: 8,000 unit Heparin Sodium (Porcine) (Heparin) 5,000 units SC Q12 [facility]S [facility] Last Admin: 11/24/17 21:03 Dose: 5,000 units Cefepime HCl 1 gm/ Dextrose 50 mls @ 100 mls/hr IVPB Q12H [facility] 234 BEDS [facility] PRN Reason: Protocol Last Admin: 11/24/17 20:58 Dose: 100 mls/hr Vancomycin HCl 1 gm/ Sodium (Chloride) 250 mls @ 167 mls/hr IVPB [facility] PRN Reason: Protocol Insulin Aspart (Novolog) 0 unit SC [facility]S INCLUDE 234 BEDS AT [facility] PRN Reason: Protocol Last Admin: 11/24/17 21:10 Dose: Not Given Insulin Glargine (Lantus) 10 unit SC [facility] Last Admin: 11/24/17 21:04 Dose: Not Given Memantine (Namenda) 5 mg PO BID [facility] 234 [facility]S [facility] Last Admin: 11/24/17 20:52 Dose: Not Given Metoprolol Succinate (Toprol Xl) 200 mg PO DAILY [facility] 234 [facility]S [facility] Last Admin: 11/24/17 09:45 Dose: Not Given Mirtazapine (Remeron) 15 mg PO HS [facility] 234 [facility]S [facility] Last Admin: 11/24/17 21:11 Dose: Not Given Rosuvastatin Calcium (Crestor) 5 mg PO HS [facility] 234 [facility]S [facility] Last Admin: 11/24/17 21:10 Dose: Not Given Tobramycin Sulfate (Tobrex 0.3% [facility]) 2 drop OS Q6H [facility] 234 [facility]S [facility] Last Admin: 11/25/17 06:22 Dose: Not Given Vitamin B Complex/Vit C/Folic Acid (Nephro-Jerson) 1 tab PO 0800 [facility]S [facility] Last Admin: 11/24/17 08:26 Dose: 1 tab - Labs Labs: 11/22/17 06:38 11/22/17 06:38 PT 12.4 SECONDS (9.7-12.2) H 11/19/17 13:36 INR 1.1 11/19/17 13:36 - Constitutional Appears: Well - Head Exam Head Exam: ATRAUMATIC, NORMAL INSPECTION, NORMOCEPHALIC - Eye Exam Eye Exam: EOMI, Normal appearance, PERRL Pupil Exam: NORMAL ACCOMODATION, PERRL - ENT Exam ENT Exam: Mucous Membranes Moist, Normal Exam - Neck Exam Neck Exam: Full ROM, Normal Inspection. absent: Lymphadenopathy - Respiratory Exam Respiratory Exam: Decreased Breath Sounds - Cardiovascular Exam Cardiovascular Exam: REGULAR RHYTHM, +S1, +S2 - GI/Abdominal Exam GI & Abdominal Exam: Soft, Diminished Bowel Sounds - Rectal Exam Rectal Exam: Deferred - Neurological Exam Neurological Exam: Alert, Awake, Oriented x3 Assessment and Plan (1) Altered mental status Status: Acute (2) Atrial fibrillation Status: Acute (3) CHF exacerbation Status: Acute (4) ESRD (end stage renal disease) on dialysis Status: Acute (5) Encephalopathy Status: Acute (6) Pleural effusion Status: Acute (7) Acute blood loss anemia Status: Acute (8) Acute conjunctivitis, left eye Status: Acute (9) CAD (coronary artery disease) Status: Acute (10) Closed intertrochanteric fracture of right hip Status: Acute (11) Frequent falls Status: Acute (12) HTN (hypertension) Status: Acute (13) Hip fracture, right Status: Acute - Assessment and Plan (Free Text) Plan: Continue cefepime Continue GI and DVT prophylaxis Continue dialysis Continue vancomycin Blood work on the dialysis Continue as ordered Follow-up with renal ID consultation
[2017-11-25] MEDS: Multivitamin Vitamin B Complex (Nephro-Vite) Tab PO SCH (08:28)
[2017-11-25] MEDS: (Novolog) Insulin Aspart, Recombinant 100 u/ml 10 ml vial SC SCH ×4 (08:28→21:43)
--- NOTE | 2017-11-25 09:19 | CP.PCM.PN ---
Subjective - Date & Time of Evaluation Date of Evaluation: 11/25/17 Time of Evaluation: 09:18 - Subjective Subjective: No complaints of hip pain. Objective - Vital Signs/Intake and Output Vital Signs (last 24 hours): Temp Pulse Resp BP Pulse Ox 97.5 F L 87 20 127/46 L 98 11/25/17 07:00 11/25/17 08:00 11/25/17 07:00 11/25/17 07:00 11/25/17 07:00 Intake and Output: 11/25/17 11/25/17 06:59 18:59 Intake Total 200 Balance 200 - Medications Medications: Current Medications Aspirin (Aspirin Chewable) 81 mg PO DAILY [facility] Last Admin: 11/24/17 09:44 Dose: 81 mg Clopidogrel Bisulfate (Plavix) 75 mg PO DAILY [facility] Last Admin: 11/24/17 09:44 Dose: 75 mg Divalproex Sodium (Depakote Dr) 250 mg PO BID [facility] Last Admin: 11/24/17 20:53 Dose: Not Given Docusate Sodium (Colace) 100 mg PO BID [facility] Last Admin: 11/24/17 20:53 Dose: Not Given Donepezil HCl (Aricept) 5 mg PO [facility] Last Admin: 11/24/17 21:04 Dose: Not Given Epoetin Ari (Procrit) 8,000 unit IV MWF [facility] Last Admin: 11/24/17 12:15 Dose: 8,000 unit Heparin Sodium (Porcine) (Heparin) 5,000 units SC Q12 [facility] Last Admin: 11/24/17 21:03 Dose: 5,000 units Cefepime HCl 1 gm/ Dextrose 50 mls @ 100 mls/hr IVPB Q12H [facility] PRN Reason: Protocol Last Admin: 11/25/17 08:27 Dose: 100 mls/hr Vancomycin HCl 1 gm/ Sodium (Chloride) 250 mls @ 167 mls/hr IVPB MWF [facility] PRN Reason: Protocol Insulin Aspart (Novolog) 0 unit SC ACHS [facility] PRN Reason: Protocol Last Admin: 11/25/17 08:28 Dose: 2 units Insulin Glargine (Lantus) 10 unit SC [facility] Last Admin: 11/24/17 21:04 Dose: Not Given Memantine (Namenda) 5 mg PO BID [facility] Last Admin: 11/24/17 20:52 Dose: Not Given Metoprolol Succinate (Toprol Xl) 200 mg PO DAILY [facility] Last Admin: 11/24/17 09:45 Dose: Not Given Mirtazapine (Remeron) 15 mg PO HS [facility] Last Admin: 11/24/17 21:11 Dose: Not Given Rosuvastatin Calcium (Crestor) 5 mg PO HS [facility] Last Admin: 11/24/17 21:10 Dose: Not Given Tobramycin Sulfate (Tobrex 0.3% Ophth Soln) 2 drop OS Q6H [facility] Last Admin: 11/25/17 06:22 Dose: Not Given Vitamin B Complex/Vit C/Folic Acid (Nephro-Jerson) 1 tab PO 0800 [facility] Last Admin: 11/25/17 08:28 Dose: 1 tab - Labs Labs: 11/22/17 06:38 11/22/17 06:38 PT 12.4 SECONDS (9.7-12.2) H 11/19/17 13:36 INR 1.1 11/19/17 13:36 - Extremities Exam Additional comments: right hip: incisions dry, intact, no erythema, jt intact, +ROM ankel/toes, calves soft NT neg homans Assessment and Plan (1) Closed intertrochanteric fracture of right hip Assessment & Plan: POD#12 s/p closed reduction/IM nailing -xrays for Dr. Perry review -VTE proph, venodyones -PT/OT -ortho stable -jt to remain for 4-[address] Perry -d/w Dr. Perry, agrees with above Status: Acute
--- NOTE | 2017-11-25 09:43 | RAD ---
PROCEDURE: Right femur dated 11/25/2017. HISTORY: Follow-up postop. COMPARISON: Correlation also made with concurrent radiographs right hip. Comparison made with prior radiographs right 11/08/2017 TECHNIQUE: AP and lateral views of the right femur performed. FINDINGS: Interval ORIF intertrochanteric fracture right hip. . Satisfactory alignment IMPRESSION: ORIF changes right hip with satisfactory alignment.
--- NOTE | 2017-11-25 09:44 | RAD ---
PROCEDURE: Right hip dated 11/25/2017 HISTORY: post op f/u COMPARISON: Correlation made with concurrent radiographs right femur and prior radiographs right femur dated 11/08/2017. TECHNIQUE: Two views of the right hip performed FINDINGS: Interval ORIF intertrochanteric fracture right hip. . Satisfactory alignment IMPRESSION: Status post ORIF intertrochanteric fracture right hip with satisfactory alignment
[2017-11-25] MEDS: Divalproex 250 mg DR Tab PO SCH (09:45)
[2017-11-25] MEDS: Metoprolol Succinate 100 mg XL Tab PO SCH (09:47)
--- NOTE | 2017-11-25 11:07 | CP.PCM.PN ---
<David Vigil - Last Filed: 11/25/17 13:15> Subjective - Date & Time of Evaluation Date of Evaluation: 11/25/17 Time of Evaluation: 11:13 - Subjective Subjective: PGY2 Medicine Note for Dr. London Fox; all management as per Dr. London Fox Pt seen and examined at bedside this AM; patient is for dialysis today; patient has no acute complaints. Objective - Vital Signs/Intake and Output Vital Signs (last 24 hours): Temp Pulse Resp BP Pulse Ox 97.5 F L 83 20 99/50 L 98 11/25/17 07:00 11/25/17 09:41 11/25/17 07:00 11/25/17 09:41 11/25/17 07:00 Intake and Output: 11/25/17 11/25/17 06:59 18:59 Intake Total 200 Balance 200 - Medications Medications: Current Medications Aspirin (Aspirin Chewable) 81 mg PO DAILY [facility] Last Admin: 11/25/17 09:45 Dose: 81 mg Clopidogrel Bisulfate (Plavix) 75 mg PO DAILY [facility] Last Admin: 11/25/17 09:45 Dose: 75 mg Divalproex Sodium (Depakote Dr) 250 mg PO BID [facility] Last Admin: 11/25/17 09:45 Dose: 250 mg Docusate Sodium (Colace) 100 mg PO BID [facility] Last Admin: 11/25/17 09:44 Dose: 100 mg Donepezil HCl (Aricept) 5 mg PO HS [facility] Last Admin: 11/24/17 21:04 Dose: Not Given Epoetin Ari (Procrit) 8,000 unit IV MWF [facility] Last Admin: 11/24/17 12:15 Dose: 8,000 unit Heparin Sodium (Porcine) (Heparin) 5,000 units SC Q12 [facility] Last Admin: 11/25/17 09:45 Dose: 5,000 units Cefepime HCl 1 gm/ Dextrose 50 mls @ 100 mls/hr IVPB Q12H [facility] PRN Reason: Protocol Last Admin: 11/25/17 08:27 Dose: 100 mls/hr Vancomycin HCl 1 gm/ Sodium (Chloride) 250 mls @ 167 mls/hr IVPB MWF [facility] PRN Reason: Protocol Insulin Aspart (Novolog) 0 unit SC ACHS [facility] PRN Reason: Protocol Last Admin: 11/25/17 08:28 Dose: 2 units Insulin Glargine (Lantus) 10 unit SC [facility] Last Admin: 11/24/17 21:04 Dose: Not Given Memantine (Namenda) 5 mg PO BID [facility] Last Admin: 11/25/17 09:44 Dose: 5 mg Metoprolol Succinate (Toprol Xl) 200 mg PO DAILY [facility] Last Admin: 11/25/17 09:47 Dose: Not Given Mirtazapine (Remeron) 15 mg PO [facility] Last Admin: 11/24/17 21:11 Dose: Not Given Rosuvastatin Calcium (Crestor) 5 mg PO [facility] Last Admin: 11/24/17 21:10 Dose: Not Given Tobramycin Sulfate (Tobrex 0.3% Oph Soln) 2 drop OS Q6H [facility] Last Admin: 11/25/17 06:22 Dose: Not Given Vitamin B Complex/Vit C/Folic Acid (Nephro-Jerson) 1 tab PO 0800 [facility] Last Admin: 11/25/17 08:28 Dose: 1 tab - Labs Labs: 11/22/17 06:38 11/22/17 06:38 PT 12.4 SECONDS (9.7-12.2) H 11/19/17 13:36 INR 1.1 11/19/17 13:36 - Constitutional Appears: Chronically Ill - Eye Exam Eye Exam: PERRL - ENT Exam ENT Exam: Mucous Membranes Moist - Respiratory Exam Respiratory Exam: Clear to Ausculation Bilateral - Cardiovascular Exam Cardiovascular Exam: REGULAR RHYTHM - GI/Abdominal Exam GI & Abdominal Exam: Soft - Neurological Exam Neurological Exam: Awake - Skin Skin Exam: Warm Assessment and Plan - Assessment and Plan (Free Text) Assessment: 77yo M admitted for R. Hip Fracture, POD #12; resolved R. Hip Fracture; resolved -POD #12 -PT/OT as per Dr. 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 London Fox Pt is DNR/DNI patient should be stable for d/c back to rehab facility that can accomodate dialysis as well patient will need jt to be taken out in the first week of December 2017 as per Ortho Pt has been refusing insulin/eating as per nursing; encourage patient to take [facility] [place] PGY2 <Christy Fox - Last Filed: 11/27/17 14:36> Objective - Vital Signs/Intake and Output Vital Signs (last 24 hours): Temp Pulse Resp BP Pulse Ox 97.6 F 86 20 129/63 97 11/27/17 08:36 11/27/17 10:30 11/27/17 08:36 11/27/17 10:30 11/27/17 08:36 - Medications Medications: Current Medications Aspirin (Aspirin Chewable) 81 mg PO DAILY [facility] Last Admin: 11/27/17 10:32 Dose: 81 mg Clopidogrel Bisulfate (Plavix) 75 mg PO DAILY [facility] Last Admin: 11/27/17 10:32 Dose: 75 mg Docusate Sodium (Colace) 100 mg PO BID [facility] Last Admin: 11/27/17 10:33 Dose: 100 mg Donepezil HCl (Aricept) 5 mg PO [facility] Last Admin: 11/26/17 21:05 Dose: 5 mg Epoetin Ari (Procrit) 8,000 unit IV MWF [facility] Last Admin: 11/26/17 12:21 Dose: 8,000 unit Cefepime HCl 1 gm/ Dextrose 50 mls @ 100 mls/hr IVPB Q12H [facility] PRN Reason: Protocol Last Admin: 11/27/17 08:14 Dose: 100 mls/hr Vancomycin/Sodium Chloride (Vancomycin 1 Gm/Ns 200 Ml) 1 gm in 200 mls @ 167 mls/hr IVPB MWF [facility] PRN Reason: Protocol Stop: 12/01/17 09:01 Last Admin: 11/26/17 15:30 Dose: 167 mls/hr Insulin Aspart (Novolog) 0 unit SC ACHS [facility] PRN Reason: Protocol Last Admin: 11/27/17 12:05 Dose: 4 units Insulin Glargine (Lantus) 10 unit SC HS [facility] Last Admin: 11/26/17 21:10 Dose: 10 units Memantine (Namenda) 5 mg PO BID [facility] Last Admin: 11/27/17 10:32 Dose: 5 mg Metoprolol Succinate (Toprol Xl) 200 mg PO DAILY [facility] Last Admin: 11/27/17 10:32 Dose: 200 mg Mirtazapine (Remeron) 15 mg PO HS [facility] Last Admin: 11/26/17 21:05 Dose: 15 mg Rosuvastatin Calcium (Crestor) 5 mg PO HS [facility] Last Admin: 11/26/17 21:05 Dose: 5 mg Tobramycin Sulfate (Tobrex 0.3% Ophth Soln) 2 drop OS Q6H [facility] Last Admin: 11/27/17 12:29 Dose: 2 drop Valproate Sodium (Depakene Oral Soln) 500 mg PO Q12 [facility] Last Admin: 11/27/17 10:33 Dose: 500 mg Vitamin B Complex/Vit C/Folic Acid (Nephro-Jerson) 1 tab PO 0800 [facility] Last Admin: 11/27/17 08:14 Dose: 1 tab - Labs Labs: 11/26/17 07:14 11/26/17 07:14 PT 12.4 SECONDS (9.7-12.2) H 11/19/17 13:36 INR 1.1 11/19/17 13:36 Assessment and Plan (1) Altered mental status Status: Acute (2) Atrial fibrillation Status: Acute (3) CHF exacerbation Status: Acute (4) ESRD (end stage renal disease) on dialysis Status: Acute (5) Encephalopathy Status: Acute (6) Pleural effusion Status: Acute (7) Acute blood loss anemia Status: Acute (8) Acute conjunctivitis, left eye Status: Acute (9) CAD (coronary artery disease) Status: Acute (10) Closed intertrochanteric fracture of right hip Status: Acute (11) Frequent falls Status: Acute (12) HTN (hypertension) Status: Acute (13) Hip fracture, right Status: Acute Attending/Attestation - Attestation I have personally seen and examined this patient.: Yes I have fully participated in the care of the patient.: Yes I have reviewed all pertinent clinical information, including history, physical exam and plan: Yes Notes (Text): case seen and d.w staff and resident, concurred with finding and management..
[2017-11-25 12:06] LABS: BASO # 0.1 K/uL (0.0-0.2); BASO % 0.7 % (0.0-2.0); EOS # 0.1 K/uL (0.0-0.7); EOS % 0.7 % (0.0-4.0); HEMOGLOBIN 10.8 g/dL (12.0-18.0); LYMPH # 1.2 K/uL (1.0-4.3); LYMPH % 11.1 % (20.0-40.0); MEAN CELL VOLUME 93.3 fL (80.0-94.0); MEAN CORPUSCULAR HEMOGLOBIN 30.2 pg (27.0-31.0); MEAN CORPUSCULAR HGB CONC 32.3 g/dL (33.0-37.0); MEAN PLATELET VOLUME 6.8 fL (7.2-11.7); MONO # 0.8 K/uL (0.0-0.8); MONO % 7.4 % (0.0-10.0); NEUT # 8.9 K/uL (1.8-7.0); NEUT % 80.1 % (50.0-75.0); NRBC % 0.2 % (0.0-2.0); RBC 3.59 Mil/uL (4.40-5.90); RED CELL DISTRIBUTION WIDTH 17.2 % (11.5-14.5); WHITE BLOOD COUNT 11.2 K/uL (4.8-10.8)
[2017-11-25] MEDS ORDERED: (Novolog) Insulin Aspart, Recombinant 100 u/ml 10 ml vial SC ONE (13:30)
--- NOTE | 2017-11-25 14:37 | CP.PCM.PN ---
Subjective - Date & Time of Evaluation Date of Evaluation: 11/25/17 Time of Evaluation: 14:37 - Subjective Subjective: Nephrology Consultation Note: Assessment: Stable Hypoxic respi failure with pulm congestion/effusions AMS ? cause: improved A fib with RVR Diabetic chronic Kidney Disease (E11.22) Hypertensive Chronic Kidney Disease (I12.0) End stage renal disease (N18.6) dependence on hemodialysis (Z99.2) (MWF) via AVF Anemia (D64.9), Hyperphosphatemia (E83.39), Secondary Hyperparathyroidism (E21.1 ), HTN (I12.0) Plan: HD tomorrow as ordered per MWF schedules. Continue with Nephrovite 1 tab/day. PRBC as needed for anemia. On JOSE CARLOS as epogen with HD, last Hb 10.3 Continue with phos binders home dose, check phos level BP control with meds as ordered. Patient not on RAAS brianne as BP tends to be low side Glycemic control, Dialysis consistent diet Further work up/management as per primary team Dose meds/antibiotics for ESRD status. Avoid fleets enema/magnesium based laxatives. Neuro cardiology evaluation appreciated Thanks for allowing me to participate in care of your patient. Will follow patient with you. Please call if any Qs. had d/w family and team Dr Dylan Escalona Office: [phone] HPI: Pt is a 77 M with hx of ESRD on hemodialysis (MWF) via left AVF @ [facility] with Dr Yin/Dr Antoine, last dialysis today but senior living, chronic anemia, hyperphosphatemia, secondary hyperparathyroidism, Diabetes Mellitus, hypertension, memory impairment/dementia, recent hospitalization for fall and Rt hip fracture s/p surgery went to rehab presented with complaints of change in mental status from HD unit today/ he was also noted to have low O2 sats pt awake but confused and unable to provide much reliable hx he has been on HD x 1 year ROS: feels better Cardiovascular: No chest pain. Pulmonary: No shortness of breath Gastrointestinal: denies abdominal pain No nausea. No vomiting. no reports of fever Physical Examination: General Appearance: comfortable, in no acute respiratory distress, co-operative . better appearing Vitals reviewed and noted as below Head; Atraumatic, normocephalic ENT: no ulcers no thrush. Tongue is midline. Oropharynx: no rash or ulcers. EYES: Pupils are equal, round and reactive to light accommodation. Eye muscles and extraocular movement intact. Sclera is anicteric. Neck; supple no lymphadenopathy, no thyromegaly or bruit Lungs: Normal respiratory rate/effort. Breath sounds bilateral equal and clear anteriorly Heart: Improved rate. s1s2 normal. No rub or gallop. A fib Extremities: no edema. No varicose veins Neurological: Patient is awake alert follows commands, hx of dementia Skin: Warm and dry. Normal turgor. No rash. Palpitation: Normal elasticity for age Abdomen: Abdomen is soft. Bowel sounds +. There is no abdominal tenderness, no guarding/rigidity or organomegaly Psych: unable MSK: no joint tenderness or swelling. Digits and nails normal, no deformity, Rt hip surgery site looks clean. : kidney or bladder not palpable Access: left AVF Labs/imaging reviewed. Past medical history, past surgical history, family history, social history, allergy reviewed and noted as below Family Hx: no hx of CKD. Non contributory Objective - Vital Signs/Intake and Output Vital Signs (last 24 hours): Temp Pulse Resp BP Pulse Ox 97.5 F L 83 20 99/50 L 98 11/25/17 07:00 11/25/17 09:41 11/25/17 07:00 11/25/17 09:41 11/25/17 07:00 Intake and Output: 11/25/17 11/25/17 06:59 18:59 Intake Total 200 Balance 200 - Medications Medications: Current Medications Aspirin (Aspirin Chewable) 81 mg PO DAILY [facility] Last Admin: 11/25/17 09:45 Dose: 81 mg Clopidogrel Bisulfate (Plavix) 75 mg PO DAILY [facility] Last Admin: 11/25/17 09:45 Dose: 75 mg Divalproex Sodium (Depakote Dr) 250 mg PO BID [facility] Last Admin: 11/25/17 09:45 Dose: 250 mg Docusate Sodium (Colace) 100 mg PO BID [facility] Last Admin: 11/25/17 09:44 Dose: 100 mg Donepezil HCl (Aricept) 5 mg PO HS [facility] Last Admin: 11/24/17 21:04 Dose: Not Given Epoetin Ari (Procrit) 8,000 unit IV [facility] Last Admin: 11/24/17 12:15 Dose: 8,000 unit Heparin Sodium (Porcine) (Heparin) 5,000 units SC Q12 [facility] Last Admin: 11/25/17 09:45 Dose: 5,000 units Cefepime HCl 1 gm/ Dextrose 50 mls @ 100 mls/hr IVPB Q12H [facility] PRN Reason: Protocol Last Admin: 11/25/17 08:27 Dose: 100 mls/hr Vancomycin HCl 1 gm/ Sodium (Chloride) 250 mls @ 167 mls/hr IVPB MWF [facility] PRN Reason: Protocol Insulin Aspart (Novolog) 0 unit SC ACHS [facility] PRN Reason: Protocol Last Admin: 11/25/17 08:28 Dose: 2 units Insulin Glargine (Lantus) 10 unit SC HS [facility] Last Admin: 11/24/17 21:04 Dose: Not Given Memantine (Namenda) 5 mg PO BID [facility] Last Admin: 11/25/17 09:44 Dose: 5 mg Metoprolol Succinate (Toprol Xl) 200 mg PO DAILY [facility] Last Admin: 11/25/17 09:47 Dose: Not Given Mirtazapine (Remeron) 15 mg PO HS [facility] Last Admin: 11/24/17 21:11 Dose: Not Given Rosuvastatin Calcium (Crestor) 5 mg PO HS [facility] Last Admin: 11/24/17 21:10 Dose: Not Given Tobramycin Sulfate (Tobrex 0.3% [facility]) 2 drop OS Q6H [facility] Last Admin: 11/25/17 12:41 Dose: 2 drop Vitamin B Complex/Vit C/Folic Acid (Nephro-Jerson) 1 tab PO 0800 [facility] Last Admin: 11/25/17 08:28 Dose: 1 tab - Labs Labs: 11/25/17 11:47 11/22/17 06:38 PT 12.4 SECONDS (9.7-12.2) H 11/19/17 13:36 INR 1.1 11/19/17 13:36
[2017-11-25] MEDS ORDERED: Divalproex 500 mg DR Tab PO SCH (14:46)
[2017-11-25] MEDS: (Lantus) Insulin Glargine, Recombinant SC SCH (21:26)
--- NOTE | 2017-11-25 21:55 | CP.PCM.CON ---
History of Present Illness - History of Present Illness History of Present Illness: dictated Past Patient History - Past Medical History & Family History Past Medical History?: Yes - Past Social History Smoking Status: Light Smoker < 10 Cigarettes Daily - CARDIAC Hx Hypertension: Yes - PULMONARY Hx Respiratory Disorders: Yes Hx Pneumonia: Yes - NEUROLOGICAL Hx Dementia: Yes - HEENT Hx HEENT Problems: Yes Hx Cataracts: Yes (had suegry on both eyes) - RENAL Hx Renal Failure: Yes (Renal disease, AV shunt, HD) - ENDOCRINE/METABOLIC Hx Diabetes Mellitus Type 1: Yes - HEMATOLOGICAL/ONCOLOGICAL Hx Anemia: Yes - INTEGUMENTARY Hx Dermatological Problems: Yes Other/Comment: sacral pressure sore 3cmx1.5cm - MUSCULOSKELETAL/RHEUMATOLOGICAL Hx Arthritis: Yes - GASTROINTESTINAL Hx Gastrointestinal Disorders: Yes Hx Constipation: Yes - GENITOURINARY/GYNECOLOGICAL Hx Genitourinary Disorders: Yes Hx Incontinence: Yes - PSYCHIATRIC Hx Substance Use: No - SURGICAL HISTORY Hx Surgeries: Yes Hx Arteriovenous Shunt: Yes (left arm) Hx Cardiac Catheterization: Yes (2004) Hx Orthopedic Surgery: Yes (rt leg) - ANESTHESIA Hx Anesthesia: Yes Hx Anesthesia Reactions: No Hx Malignant Hyperthermia: No Meds Allergies/Adverse Reactions: Allergies Allergy/AdvReac Type Severity Reaction Status Date / Time No Known Allergies Allergy Verified 11/19/17 12:30 - Medications Medications: Current Medications Aspirin (Aspirin Chewable) 81 mg PO DAILY [facility] Last Admin: 11/25/17 09:45 Dose: 81 mg Clopidogrel Bisulfate (Plavix) 75 mg PO DAILY [facility] Last Admin: 11/25/17 09:45 Dose: 75 mg Divalproex Sodium (Depakote Dr) 500 mg PO BID [facility] Last Admin: 11/25/17 18:08 Dose: 500 mg Docusate Sodium (Colace) 100 mg PO BID [facility] Last Admin: 11/25/17 18:07 Dose: 100 mg Donepezil HCl (Aricept) 5 mg PO HS [facility] Last Admin: 11/25/17 21:25 Dose: 5 mg Epoetin Ari (Procrit) 8,000 unit IV MWF [facility] Last Admin: 11/24/17 12:15 Dose: 8,000 unit Heparin Sodium (Porcine) (Heparin) 5,000 units SC Q12 [facility] Last Admin: 11/25/17 21:25 Dose: 5,000 units Cefepime HCl 1 gm/ Dextrose 50 mls @ 100 mls/hr IVPB Q12H [facility] PRN Reason: Protocol Last Admin: 11/25/17 21:00 Dose: 100 mls/hr Vancomycin/Sodium Chloride (Vancomycin 1 Gm/Ns 200 Ml) 1 gm in 200 mls @ 167 mls/hr IVPB MWF [facility] PRN Reason: Protocol Stop: 12/01/17 09:01 Insulin Aspart (Novolog) 0 unit SC ACHS [facility] PRN Reason: Protocol Last Admin: 11/25/17 21:43 Dose: Not Given Insulin Glargine (Lantus) 10 unit SC HS [facility] Last Admin: 11/25/17 21:26 Dose: 10 units Memantine (Namenda) 5 mg PO BID [facility] Last Admin: 11/25/17 18:08 Dose: 5 mg Metoprolol Succinate (Toprol Xl) 200 mg PO DAILY [facility] Last Admin: 11/25/17 09:47 Dose: Not Given Mirtazapine (Remeron) 15 mg PO [facility] Last Admin: 11/25/17 21:25 Dose: 15 mg Rosuvastatin Calcium (Crestor) 5 mg PO HS [facility] Last Admin: 11/25/17 21:25 Dose: 5 mg Tobramycin Sulfate (Tobrex 0.3% [facility] Sol) 2 drop OS Q6H [facility] Last Admin: 11/25/17 18:15 Dose: 2 drop Vitamin B Complex/Vit C/Folic Acid (Nephro-Jerson) 1 tab PO 0800 [facility] Last Admin: 11/25/17 08:28 Dose: 1 tab Results - Vital Signs Recent Vital Signs: Last Vital Signs Temp 97.2 F L 11/25/17 15:00 Pulse 95 H 11/25/17 15:00 Resp 20 11/25/17 15:00 BP 117/62 11/25/17 15:00 Pulse Ox 98 11/25/17 15:00 - Labs Result Diagrams: 11/25/17 11:47 11/22/17 06:38 Labs: Laboratory Results - last 24 hr 11/25/17 11/25/17 11/25/17 06:13 11:12 11:47 WBC RBC Hgb Hct MCV MCH MCHC RDW Plt Count MPV Neut % (Auto) Lymph % (Auto) [place] % (Auto) Eos % (Auto) Baso % (Auto) Neut # (Auto) Lymph # (Auto) [place] # (Auto) Eos # (Auto) Baso # (Auto) POC Glucose (mg/dL) 155 H 351 H Valproic Acid < 10.0 L 11/25/17 11/25/17 11/25/17 11:47 16:08 21:16 WBC 11.2 H RBC 3.59 L Hgb 10.8 L Hct 33.5 L MCV 93.3 MCH 30.2 MCHC 32.3 L RDW 17.2 H Plt Count 599 H MPV 6.8 L Neut % (Auto) 80.1 H Lymph % (Auto) 11.1 L [place] % (Auto) 7.4 Eos % (Auto) 0.7 Baso % (Auto) 0.7 Neut # (Auto) 8.9 H Lymph # (Auto) 1.2 [place] # (Auto) 0.8 Eos # (Auto) 0.1 Baso # (Auto) 0.1 POC Glucose (mg/dL) 221 H 208 H Valproic Acid
[2017-11-26] MEDS: Tobramycin 0.3% OPHT SOLN OS SCH ×4 (00:23→20:08)
[2017-11-26 07:26] LABS: BASO # 0.1 K/uL (0.0-0.2); BASO % 0.9 % (0.0-2.0); EOS # 0.2 K/uL (0.0-0.7); EOS % 2.3 % (0.0-4.0); HEMOGLOBIN 10.8 g/dL (12.0-18.0); LYMPH # 1.6 K/uL (1.0-4.3); LYMPH % 15.1 % (20.0-40.0); MEAN CELL VOLUME 92.9 fL (80.0-94.0); MEAN CORPUSCULAR HEMOGLOBIN 31.2 pg (27.0-31.0); MEAN CORPUSCULAR HGB CONC 33.5 g/dL (33.0-37.0); MEAN PLATELET VOLUME 6.6 fL (7.2-11.7); MONO # 0.8 K/uL (0.0-0.8); MONO % 7.9 % (0.0-10.0); NEUT # 7.9 K/uL (1.8-7.0); NEUT % 73.8 % (50.0-75.0); NRBC % 0.1 % (0.0-2.0); RBC 3.46 Mil/uL (4.40-5.90); WHITE BLOOD COUNT 10.7 K/uL (4.8-10.8)
[2017-11-26 07:48] LABS: ALB/GLOB RATIO 0.9 (1.0-2.1); ALBUMIN 3.5 g/dL (3.5-5.0); CALCIUM 8.6 mg/dl (8.6-10.4)
[2017-11-26] MEDS ORDERED: Valproate 1,000 MG in Sodium Chloride 0.9% 100 ML IVPB ONE (07:50)
--- NOTE | 2017-11-26 07:55 | CP.PCM.PN ---
Subjective - Date & Time of Evaluation Date of Evaluation: 11/26/17 Time of Evaluation: 07:55 - Subjective Subjective: Mr. Jack was seen and examined at the bedside. He is awake, able to answer few questions, but has episode of confusion. He is much calmer today, able to follow some commands such as opening his mouth, raising his bilateral upper extremities and moving his bilateral toes. Repeat Ct scan of the head without contrast showed no acute findings. There was no untoward events overnight. Objective - Vital Signs/Intake and Output Vital Signs (last 24 hours): Temp Pulse Resp BP Pulse Ox 98.6 F 69 20 145/80 96 11/25/17 23:20 11/25/17 23:20 11/25/17 23:20 11/25/17 23:20 11/25/17 23:20 - Medications Medications: Current Medications Aspirin (Aspirin Chewable) 81 mg PO DAILY [facility] Last Admin: 11/25/17 09:45 Dose: 81 mg Clopidogrel Bisulfate (Plavix) 75 mg PO DAILY [facility] Last Admin: 11/25/17 09:45 Dose: 75 mg Docusate Sodium (Colace) 100 mg PO BID [facility] Last Admin: 11/25/17 18:07 Dose: 100 mg Donepezil HCl (Aricept) 5 mg PO HS [facility] Last Admin: 11/25/17 21:25 Dose: 5 mg Epoetin Ari (Procrit) 8,000 unit IV MWF [facility] Last Admin: 11/24/17 12:15 Dose: 8,000 unit Heparin Sodium (Porcine) (Heparin) 5,000 units SC Q12 [facility] Last Admin: 11/25/17 21:25 Dose: 5,000 units Cefepime HCl 1 gm/ Dextrose 50 mls @ 100 mls/hr IVPB Q12H [facility] PRN Reason: Protocol Last Admin: 11/25/17 21:00 Dose: 100 mls/hr Vancomycin/Sodium Chloride (Vancomycin 1 Gm/Ns 200 Ml) 1 gm in 200 mls @ 167 mls/hr IVPB MWF [facility] PRN Reason: Protocol Stop: 12/01/17 09:01 Valproate Sodium 1,000 mg/ (Sodium Chloride) 110 mls @ 0 mls/hr IVPB ONCE ONE PRN Reason: Per Protocol Stop: 11/26/17 07:51 Insulin Aspart (Novolog) 0 unit SC ACHS [facility] PRN Reason: Protocol Last Admin: 11/25/17 21:43 Dose: Not Given Insulin Glargine (Lantus) 10 unit SC HS [facility] Last Admin: 11/25/17 21:26 Dose: 10 units Memantine (Namenda) 5 mg PO BID [facility] Last Admin: 11/25/17 18:08 Dose: 5 mg Metoprolol Succinate (Toprol Xl) 200 mg PO DAILY [facility] Last Admin: 11/25/17 09:47 Dose: Not Given Mirtazapine (Remeron) 15 mg PO HS [facility] Last Admin: 11/25/17 21:25 Dose: 15 mg Rosuvastatin Calcium (Crestor) 5 mg PO HS [facility] Last Admin: 11/25/17 21:25 Dose: 5 mg Tobramycin Sulfate (Tobrex 0.3% Ophth Soln) 2 drop OS Q6H [facility] Last Admin: 11/26/17 06:26 Dose: 2 drop Vitamin B Complex/Vit C/Folic Acid (Nephro-Jerson) 1 tab PO 0800 [facility] Last Admin: 11/25/17 08:28 Dose: 1 tab - Labs Labs: 11/26/17 07:14 11/26/17 07:14 PT 12.4 SECONDS (9.7-12.2) H 11/19/17 13:36 INR 1.1 11/19/17 13:36 - Constitutional Appears: No Acute Distress - Head Exam Head Exam: NORMAL INSPECTION - Eye Exam Pupil Exam: PERRL - Neurological Exam Neurological Exam: Awake Neuro motor strength exam: Left Upper Extremity: 3, Right Upper Extremity: 3, Left Lower Extremity: 2/1, Right Lower Extremity: 2/1 Additional comments: Neurological improved from previous examination, able to follow some simple commands Assessment and Plan (1) Encephalopathy Assessment & Plan: Case discussed with Dr. Swanson, continue all current medical regimen. Recommend depakote 1000 mg IVPB for one dose, then resume previous dose and change from tablet to oral solution due to patient's tendency to pocket medications in his mouth, treat any electrolyte abnormalities. Pending EEG result. Status: Acute
[2017-11-26] MEDS: Multivitamin Vitamin B Complex (Nephro-Vite) Tab PO SCH (08:24)
[2017-11-26] MEDS: (Novolog) Insulin Aspart, Recombinant 100 u/ml 10 ml vial SC SCH ×4 (08:25→21:16)
--- NOTE | 2017-11-26 08:40 | CON ---
DATE: 11/25/2017INFECTIOUS DISEASE CONSULT REQUESTED BY: Jason Fox MD HISTORY OF PRESENT ILLNESS: This patient is a 77-year-old male, I was called for infectious disease consult today. The patient was brought here with altered mental status. He has been in and out of consciousness. Actually, this patient fell. He is status post right hip fracture repair at [facility] on last admission, and then he went to the rehab, and in the rehab on the weekend, his sugar dropped to 35 or 25, and the son was there, and they revived him, and he was better, and then he went for the dialysis. After dialysis, he was very confused and he was brought into the emergency room, and since then, he has been here, that was 11/19/2017, and today is 11/25/2017. The patient has been seen by multiple consultants and the patient is also being followed by the dialysis attending as well as learning support services director and also by the neurologist. He was seen and he was brought in with hypoxemia and with pulmonary edema, altered mental status. He also has atrial fib with rapid ventricular rate and has chronic kidney disease. He has a fistula in the left arm. He is hypertensive, end-stage renal disease. He is diabetic because the sugar dropped, and he has anemia, hyperpotassemia, secondary hyperparathyroidism, and hypertension, and the patient is presently on IV antibiotics. History of dementia, neurologically. Renal, he has dialysis and he is diabetic also. Anemia, arthritis. No GI troubles. No problems. No substance abuse. No psych problems. SOCIAL HISTORY: Significant for former smoker. SURGERIES: He has cardiac cath in 2004. He has fistula in the left forearm for renal. ALLERGIES: HE IS NOT ALLERGIC TO ANY MEDICINE. He does make some amount of urine infrequently, and does not have any bleeding or any other issues going on. He did not run a fever, did have a hypoglycemic episode in the residential. MEDICATIONS: His medications at the present time, he is on aspirin; cefepime, he is getting 1 gm every day. He is on Plavix. He is on Cardizem, Depakote, Colace, Aricept, Procrit, heparin subcu, insulin, Namenda, metoprolol succinate, mirtazapine, Seroquel. He is on Crestor, and on vancomycin 1 gm IV stat he got on 11/16, and he is on 1 gm MWF, and he is on vitamin B complex. He is on a multivitamin. He is on vancomycin and Maxipime. REVIEW OF SYSTEM: Unable to obtain. The son says, he is slightly better than yesterday, but still he is very lethargic. He did open his eyes and looked around, and the room was very cold, but he did not complain, and the son said that normally if it was cold like this, he would have complained, and he was surprised. Surgical history is also significant for right hip surgery but the wound is healing; and 12 days ago, he had a right hip intramedullary nailing for intertrochanteric fracture; and he denied any pain in the hip or the leg, and he was seen by the orthopedics also. He also has a sacral decubitus that is the other thing which was 3 cm x 1.5 cm. PHYSICAL EXAMINATION: VITAL SIGNS: I find his temperature today was 97.2, heart rate of 95, blood pressure 117/62, respirations are 20. HEENT: Head is atraumatic, normocephalic. He is arousable but not sure if he is confused as he is not communicating much. His pupils are reacting to light. He followed actually simple commands. He did open his mouth. I asked him to show me the tongue, and he was able to follow that. NECK: Supple. JVP is flat. Trachea is central. CHEST WALL: Symmetrical. No crackles or rales heard. HEART: S1, S2 is regular. ABDOMEN: Soft, flabby, nontender. No guarding, no rigidity present. EXTREMITIES: Have no edema, clubbing, or cyanosis. He has a left forearm shunt fistula which had a bruise, and right arm is unremarkable. LABORATORY DATA: Labs are noted. Labs show white count is 11.2, hemoglobin 10.8, hematocrit 33.5, platelet count is 599, and shows neutrophils are 80.1 and lymphs are 11.1. Urine shows a urine protein 2+, glucose 3+, ketones are negative. Toxicology, valproic acid was less than 10, and he also had a hip x-ray today. Hip x-ray shows status post intratrochanteric fracture right hip with satisfactory alignment so that appears to be good. He also had a head CT yesterday, and head CT shows no intracranial hemorrhage or evidence of acute infarct, chronic white matter ischemic change, and small old lacunar infarct. No significant change from 11/18/2017. He had a chest CT done, and the chest CT shows unremarkable CT pulmonary angiogram, no pulmonary embolism, small trace bilateral pleural effusion, small bilateral 2 to 4 subpleural nodules, partially age indeterminate compression fracture of L1. There is cholelithiasis. There is 1.9 exophytic upper pole structure that cannot be characterized as a simple cyst or those other things. My impression and the cultures were done. Cultures, blood culture and urine culture have all been negative. So at this time, he is on antibiotics, and he is mildly improving. His brain is perfusing well after the hypoglycemic episode. CAT scan did not show any pulmonary embolism. He is on medications, cardiac meds as well as Plavix and Depakote, maybe we should hold these drugs especially Depakote or decrease the dose, and maybe his alertness would come back. I would at this time do tomorrow a procalcitonin level and a lactate level which may help me, and if they are high, I would pursue with the CAT scan of the abdomen to look for further any source, and he does have a small sacral decubitus, and we will evaluate that, and continue antibiotics from now. We will follow. IMPRESSION: This patient is diabetic, came after hypoglycemic episode with hypoxia after dialysis. He has recent hip surgery and now with altered mental status, and they have looked up for the head CT and brain scan for any an acute stroke, but he seems to be still with altered mental status, and he is slightly better than yesterday according to the son. Servando Arrieta MD
[2017-11-26] MEDS: Valproic Acid 250 mg/5 ml UD Cup PO SCH ×2 (09:37→21:05)
[2017-11-26] MEDS: EPOETIN ALFA 4,000 UNIT/ML ML Dialysis IV SCH (12:21)
[2017-11-26] MEDS: Metoprolol Succinate 100 mg XL Tab PO SCH (14:33)
--- NOTE | 2017-11-26 15:22 | CP.PCM.PN ---
Subjective - Date & Time of Evaluation Date of Evaluation: 11/26/17 Time of Evaluation: 15:21 - Subjective Subjective: Nephrology Consultation Note: Assessment: Stable Hypoxic respi failure with pulm congestion/effusions AMS ? cause: improved A fib with RVR Diabetic chronic Kidney Disease (E11.22) Hypertensive Chronic Kidney Disease (I12.0) End stage renal disease (N18.6) dependence on hemodialysis (Z99.2) (MWF) via AVF Anemia (D64.9), Hyperphosphatemia (E83.39), Secondary Hyperparathyroidism (E21.1 ), HTN (I12.0) Plan: HD today as ordered per MWF schedules. Continue with Nephrovite 1 tab/day. PRBC as needed for anemia. On JOSE CARLOS as epogen with HD, last Hb 10.8 Continue with phos binders home dose, check phos level BP control with meds as ordered. Patient not on RAAS brianne as BP tends to be low side Glycemic control, Dialysis consistent diet Further work up/management as per primary team Dose meds/antibiotics for ESRD status. Avoid fleets enema/magnesium based laxatives. Neuro cardiology ID evaluation appreciated Thanks for allowing me to participate in care of your patient. Will follow patient with you. Please call if any Qs. had d/w family and team Dr Dylan Escalona Office: [phone] HPI: Pt is a 77 M with hx of ESRD on hemodialysis (MWF) via left AVF @ [facility] with Dr Yin/Dr Antoine, last dialysis today but correction, chronic anemia, hyperphosphatemia, secondary hyperparathyroidism, Diabetes Mellitus, hypertension, memory impairment/dementia, recent hospitalization for fall and Rt hip fracture s/p surgery went to rehab presented with complaints of change in mental status from HD unit today/ he was also noted to have low O2 sats pt awake but confused and unable to provide much reliable hx he has been on HD x 1 year ROS: feels better. Cardiovascular: No chest pain. Pulmonary: No shortness of breath Gastrointestinal: denies abdominal pain No nausea. No vomiting. no reports of fever Physical Examination: General Appearance: comfortable, in no acute respiratory distress, co-operative . better appearing Vitals reviewed and noted as below Head; Atraumatic, normocephalic ENT: no ulcers no thrush. Tongue is midline. Oropharynx: no rash or ulcers. EYES: Pupils are equal, round and reactive to light accommodation. Eye muscles and extraocular movement intact. Sclera is anicteric. Neck; supple no lymphadenopathy, no thyromegaly or bruit Lungs: Normal respiratory rate/effort. Breath sounds bilateral equal and clear anteriorly Heart: Improved rate. s1s2 normal. No rub or gallop. A fib Extremities: no edema. No varicose veins Neurological: Patient is awake alert follows commands, hx of dementia Skin: Warm and dry. Normal turgor. No rash. Palpitation: Normal elasticity for age Abdomen: Abdomen is soft. Bowel sounds +. There is no abdominal tenderness, no guarding/rigidity or organomegaly Psych: unable MSK: no joint tenderness or swelling. Digits and nails normal, no deformity, Rt hip surgery site looks clean. : kidney or bladder not palpable Access: left AVF Labs/imaging reviewed. Past medical history, past surgical history, family history, social history, allergy reviewed and noted as below Family Hx: no hx of CKD. Non contributory Objective - Vital Signs/Intake and Output Vital Signs (last 24 hours): Temp Pulse Resp BP Pulse Ox 97.3 F L 105 H 20 105/72 95 11/26/17 14:25 11/26/17 14:25 11/26/17 14:25 11/26/17 14:25 11/26/17 14:25 - Medications Medications: Current Medications Aspirin (Aspirin Chewable) 81 mg PO DAILY [facility] Last Admin: 11/26/17 09:20 Dose: 81 mg Clopidogrel Bisulfate (Plavix) 75 mg PO DAILY [facility] Last Admin: 11/26/17 09:20 Dose: 75 mg Docusate Sodium (Colace) 100 mg PO BID [facility] Last Admin: 11/26/17 09:20 Dose: 100 mg Donepezil HCl (Aricept) 5 mg PO HS [facility] Last Admin: 11/25/17 21:25 Dose: 5 mg Epoetin Ari (Procrit) 8,000 unit IV MWF [facility] Last Admin: 11/26/17 12:21 Dose: 8,000 unit Heparin Sodium (Porcine) (Heparin) 5,000 units SC Q12 [facility] Last Admin: 11/26/17 09:20 Dose: 5,000 units Cefepime HCl 1 gm/ Dextrose 50 mls @ 100 mls/hr IVPB Q12H [facility] PRN Reason: Protocol Last Admin: 11/26/17 08:25 Dose: 100 mls/hr Vancomycin/Sodium Chloride (Vancomycin 1 Gm/Ns 200 Ml) 1 gm in 200 mls @ 167 mls/hr IVPB MWF [facility] Reason: Protocol Stop: 12/01/17 09:01 Insulin Aspart (Novolog) 0 unit SC ACHS [facility] Reason: Protocol Last Admin: 11/26/17 14:34 Dose: 2 units Insulin Glargine (Lantus) 10 unit SC HS [facility] Last Admin: 11/25/17 21:26 Dose: 10 units Memantine (Namenda) 5 mg PO BID [facility] Last Admin: 11/26/17 09:20 Dose: 5 mg Metoprolol Succinate (Toprol Xl) 200 mg PO DAILY [facility] Last Admin: 11/26/17 14:33 Dose: 200 mg Mirtazapine (Remeron) 15 mg PO HS [facility] Last Admin: 11/25/17 21:25 Dose: 15 mg Rosuvastatin Calcium (Crestor) 5 mg PO HS [facility] Last Admin: 11/25/17 21:25 Dose: 5 mg Tobramycin Sulfate (Tobrex 0.3% Ophth Soln) 2 drop OS Q6H [facility] Last Admin: 11/26/17 14:32 Dose: 2 drop Valproate Sodium (Depakene Oral Soln) 500 mg PO Q12 [facility] Last Admin: 11/26/17 09:37 Dose: 500 mg Vitamin B Complex/Vit C/Folic Acid (Nephro-Jerson) 1 tab PO 0800 [facility] Last Admin: 11/26/17 08:24 Dose: 1 tab - Labs Labs: 11/26/17 07:14 11/26/17 07:14 PT 12.4 SECONDS (9.7-12.2) H 11/19/17 13:36 INR 1.1 11/19/17 13:36
[2017-11-26] MEDS: Vancomycin 1 gm/NS 200 ml 1 GM/200 ML BAG IVPB SCH (15:30)
--- NOTE | 2017-11-26 16:25 | CP.PCM.PN ---
Subjective - Date & Time of Evaluation Date of Evaluation: 11/26/17 Time of Evaluation: 09:00 - Subjective Subjective: clinically same Objective - Vital Signs/Intake and Output Vital Signs (last 24 hours): Temp Pulse Resp BP Pulse Ox 97.3 F L 105 H 20 105/72 95 11/26/17 14:25 11/26/17 14:25 11/26/17 14:25 11/26/17 14:25 11/26/17 14:25 Intake and Output: 11/26/17 11/26/17 06:59 18:59 Intake Total 300 Balance 300 - Medications Medications: Current Medications Aspirin (Aspirin Chewable) 81 mg PO DAILY [facility] Last Admin: 11/26/17 09:20 Dose: 81 mg Clopidogrel Bisulfate (Plavix) 75 mg PO DAILY [facility] Last Admin: 11/26/17 09:20 Dose: 75 mg Docusate Sodium (Colace) 100 mg PO BID [facility] Last Admin: 11/26/17 09:20 Dose: 100 mg Donepezil HCl (Aricept) 5 mg PO [facility] Last Admin: 11/25/17 21:25 Dose: 5 mg Epoetin Ari (Procrit) 8,000 unit IV MWF [facility] Last Admin: 11/26/17 12:21 Dose: 8,000 unit Heparin Sodium (Porcine) (Heparin) 5,000 units SC Q12 [facility] Last Admin: 11/26/17 09:20 Dose: 5,000 units Cefepime HCl 1 gm/ Dextrose 50 mls @ 100 mls/hr IVPB Q12H [facility] PRN Reason: Protocol Last Admin: 11/26/17 08:25 Dose: 100 mls/hr Vancomycin/Sodium Chloride (Vancomycin 1 Gm/Ns 200 Ml) 1 gm in 200 mls @ 167 mls/hr IVPB MWF [facility] PRN Reason: Protocol Stop: 12/01/17 09:01 Last Admin: 11/26/17 15:30 Dose: 167 mls/hr Insulin Aspart (Novolog) 0 unit SC ACHS [facility] PRN Reason: Protocol Last Admin: 11/26/17 14:34 Dose: 2 units Insulin Glargine (Lantus) 10 unit SC [facility] Last Admin: 11/25/17 21:26 Dose: 10 units Memantine (Namenda) 5 mg PO BID [facility] Last Admin: 11/26/17 09:20 Dose: 5 mg Metoprolol Succinate (Toprol Xl) 200 mg PO DAILY [facility] Last Admin: 11/26/17 14:33 Dose: 200 mg Mirtazapine (Remeron) 15 mg PO HS [facility] Last Admin: 11/25/17 21:25 Dose: 15 mg Rosuvastatin Calcium (Crestor) 5 mg PO HS [facility] Last Admin: 11/25/17 21:25 Dose: 5 mg Tobramycin Sulfate (Tobrex 0.3% Ophth Soln) 2 drop OS Q6H [facility] Last Admin: 11/26/17 14:32 Dose: 2 drop Valproate Sodium (Depakene Oral Soln) 500 mg PO Q12 [facility] Last Admin: 11/26/17 09:37 Dose: 500 mg Vitamin B Complex/Vit C/Folic Acid (Nephro-Jerson) 1 tab PO 0800 [facility] Last Admin: 11/26/17 08:24 Dose: 1 tab - Labs Labs: 11/26/17 07:14 11/26/17 07:14 PT 12.4 SECONDS (9.7-12.2) H 11/19/17 13:36 INR 1.1 11/19/17 13:36 - Constitutional Appears: Well - Head Exam Head Exam: ATRAUMATIC, NORMAL INSPECTION, NORMOCEPHALIC - Eye Exam Eye Exam: EOMI, Normal appearance, PERRL Pupil Exam: NORMAL ACCOMODATION, PERRL - ENT Exam ENT Exam: Mucous Membranes Moist, Normal Exam - Neck Exam Neck Exam: Full ROM, Normal Inspection. absent: Lymphadenopathy - Respiratory Exam Respiratory Exam: Decreased Breath Sounds - Cardiovascular Exam Cardiovascular Exam: REGULAR RHYTHM, +S1, +S2 - GI/Abdominal Exam GI & Abdominal Exam: Diminished Bowel Sounds - Rectal Exam Rectal Exam: Deferred - Neurological Exam Additional comments: [employer] same Assessment and Plan (1) Altered mental status Status: Acute (2) Atrial fibrillation Status: Acute (3) CHF exacerbation Status: Acute (4) ESRD (end stage renal disease) on dialysis Status: Acute (5) Encephalopathy Status: Acute (6) Pleural effusion Status: Acute (7) Acute blood loss anemia Status: Acute (8) Acute conjunctivitis, left eye Status: Acute (9) CAD (coronary artery disease) Status: Acute (10) Closed intertrochanteric fracture of right hip Status: Acute (11) Frequent falls Status: Acute (12) HTN (hypertension) Status: Acute (13) Hip fracture, right Status: Acute - Assessment and Plan (Free Text) Plan: 77yo M admitted for R. Hip Fracture, POD #12; resolved R. Hip Fracture; resolved -PT/OT as per Dr. 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
[2017-11-26] MEDS: (Lantus) Insulin Glargine, Recombinant SC SCH (21:10)
[2017-11-27] MEDS: Tobramycin 0.3% OPHT SOLN OS SCH ×4 (01:25→19:30)
--- NOTE | 2017-11-27 02:44 | PN ---
DATE: 11/26/2017 SUBJECTIVE: The patient is afebrile, and the patient just came back from the dialysis, and he did not want to be bothered. He says he has no pain. He was more awake than yesterday. Denies any complaints. PHYSICAL EXAMINATION: VITAL SIGNS: T-max was 99, pulse 77, blood pressure 135/68, respirations are 20. HEENT: Head is atraumatic. NECK: Supple. LUNGS: Clear. No crackles or rales present. HEART: S1, S2 is regular. ABDOMEN: Soft, nontender. No guarding. No rigidity present. EXTREMITIES: Have no edema. He did not want to be bothered but he is waking up. More awake. LABORATORY DATA: White count is 10.7 today, hemoglobin 10.8, hematocrit 32.2, platelet count is 572. Still remains elevated. Neutrophils are 73.8 and lymphs are 15, and he is on antibiotics. Sodium is 138, potassium 4.2, chlorides are 96, BUN is 28, creatinine 3.2. He is a dialysis patient, and his cultures are all negative. We did a calcitonin level today, and the procalcitonin level was 0.51, it is low positive. He had a hip and pelvic x-ray yesterday, and his right hip is healing. Findings, open reduction and internal fixation, intertrochanteric fracture of right hip, satisfactory alignment. ASSESSMENT AND PLAN: So at this time, I would continue this vancomycin and Maxipime for couple of more days and seems to be getting better and the cultures have been all negative and he did not want to be bothered. At this time, I think he is improving. He did have before hyperglycemic episode and history of open reduction and internal fixation. His altered mental status seems to be improving. Servando Arrieta MD
--- NOTE | 2017-11-27 07:41 | CP.PCM.PN ---
Subjective - Date & Time of Evaluation Date of Evaluation: 11/27/17 Time of Evaluation: 07:40 - Subjective Subjective: Mr. Jack was seen and examined at the bedside. He is awake, able to answer few questions, but has episode of confusion. He is much calmer today, able to follow some commands such as opening his mouth, raising his bilateral upper extremities and moving his bilateral toes. There was no untoward events overnight. Objective - Vital Signs/Intake and Output Vital Signs (last 24 hours): Temp Pulse Resp BP Pulse Ox 98.6 F 90 20 134/62 96 11/26/17 23:20 11/26/17 23:20 11/26/17 23:20 11/26/17 23:20 11/26/17 23:20 - Medications Medications: Current Medications Aspirin (Aspirin Chewable) 81 mg PO DAILY [facility] Last Admin: 11/26/17 09:20 Dose: 81 mg Clopidogrel Bisulfate (Plavix) 75 mg PO DAILY [facility] Last Admin: 11/26/17 09:20 Dose: 75 mg Docusate Sodium (Colace) 100 mg PO BID [facility] Last Admin: 11/26/17 17:54 Dose: 100 mg Donepezil HCl (Aricept) 5 mg PO HS [facility] Last Admin: 11/26/17 21:05 Dose: 5 mg Epoetin Ari (Procrit) 8,000 unit IV MWF [facility] Last Admin: 11/26/17 12:21 Dose: 8,000 unit Cefepime HCl 1 gm/ Dextrose 50 mls @ 100 mls/hr IVPB Q12H [facility] PRN Reason: Protocol Last Admin: 11/26/17 20:07 Dose: 100 mls/hr Vancomycin/Sodium Chloride (Vancomycin 1 Gm/Ns 200 Ml) 1 gm in 200 mls @ 167 mls/hr IVPB MWF [facility] PRN Reason: Protocol Stop: 12/01/17 09:01 Last Admin: 11/26/17 15:30 Dose: 167 mls/hr Insulin Aspart (Novolog) 0 unit SC ACHS [facility] PRN Reason: Protocol Last Admin: 11/26/17 21:16 Dose: Not Given Insulin Glargine (Lantus) 10 unit SC HS [facility] Last Admin: 11/26/17 21:10 Dose: 10 units Memantine (Namenda) 5 mg PO BID [facility] Last Admin: 11/26/17 17:54 Dose: 5 mg Metoprolol Succinate (Toprol Xl) 200 mg PO DAILY [facility] Last Admin: 11/26/17 14:33 Dose: 200 mg Mirtazapine (Remeron) 15 mg PO HS [facility] Last Admin: 11/26/17 21:05 Dose: 15 mg Rosuvastatin Calcium (Crestor) 5 mg PO HS [facility] Last Admin: 11/26/17 21:05 Dose: 5 mg Tobramycin Sulfate (Tobrex 0.3% Ophth Soln) 2 drop OS Q6H [facility] Last Admin: 11/27/17 06:16 Dose: Not Given Valproate Sodium (Depakene Oral Soln) 500 mg PO Q12 [facility] Last Admin: 11/26/17 21:05 Dose: 500 mg Vitamin B Complex/Vit C/Folic Acid (Nephro-Jerson) 1 tab PO 0800 [facility] Last Admin: 11/26/17 08:24 Dose: 1 tab - Labs Labs: 11/26/17 07:14 11/26/17 07:14 PT 12.4 SECONDS (9.7-12.2) H 11/19/17 13:36 INR 1.1 11/19/17 13:36 - Constitutional Appears: No Acute Distress - Head Exam Head Exam: NORMAL INSPECTION - Eye Exam Pupil Exam: PERRL - Neurological Exam Neurological Exam: Awake Neuro motor strength exam: Left Upper Extremity: 4, Right Upper Extremity: 4, Left Lower Extremity: 2/1, Right Lower Extremity: 2/1 Additional comments: Neurological unchanged from previous examination. Assessment and Plan (1) Encephalopathy Assessment & Plan: Case discussed with Dr. Swanson, continue all current medical regimen. Recommend treat any electrolyte abnormalities and treat any underlying infection.. Pending EEG and valproic acid level result. Status: Acute
[2017-11-27] MEDS: (Novolog) Insulin Aspart, Recombinant 100 u/ml 10 ml vial SC SCH ×4 (08:13→21:29)
[2017-11-27] MEDS: Multivitamin Vitamin B Complex (Nephro-Vite) Tab PO SCH (08:14)
[2017-11-27] MEDS: Metoprolol Succinate 100 mg XL Tab PO SCH (10:32)
[2017-11-27] MEDS: Valproic Acid 250 mg/5 ml UD Cup PO SCH ×2 (10:33→21:30)
--- NOTE | 2017-11-27 16:14 | CP.PCM.PN ---
Subjective - Date & Time of Evaluation Date of Evaluation: 11/27/17 Time of Evaluation: 16:14 - Subjective Subjective: Nephrology Consultation Note: Assessment: Stable Hypoxic respi failure with pulm congestion/effusions AMS ? cause: improved A fib with RVR Diabetic chronic Kidney Disease (E11.22) Hypertensive Chronic Kidney Disease (I12.0) End stage renal disease (N18.6) dependence on hemodialysis (Z99.2) (MWF) via AVF Anemia (D64.9), Hyperphosphatemia (E83.39), Secondary Hyperparathyroidism (E21.1 ), HTN (I12.0) Plan: HD tomorrow as ordered per MWF schedules. Continue with Nephrovite 1 tab/day. PRBC as needed for anemia. On JOSE CARLOS as epogen with HD, last Hb 10.8 Continue with phos binders home dose, check phos level BP control with meds as ordered. Patient not on RAAS brianne as BP tends to be low side Glycemic control, Dialysis consistent diet Further work up/management as per primary team Dose meds/antibiotics for ESRD status. Avoid fleets enema/magnesium based laxatives. Neuro cardiology ID evaluation appreciated Thanks for allowing me to participate in care of your patient. Will follow patient with you. Please call if any Qs. had d/w family and team Dr Dylan Escalona Office: [phone] HPI: Pt is a 77 M with hx of ESRD on hemodialysis (MWF) via left AVF @ [facility] with Dr Yin/Dr Antoine, last dialysis today but alf, chronic anemia, hyperphosphatemia, secondary hyperparathyroidism, Diabetes Mellitus, hypertension, memory impairment/dementia, recent hospitalization for fall and Rt hip fracture s/p surgery went to rehab presented with complaints of change in mental status from HD unit today/ he was also noted to have low O2 sats pt awake but confused and unable to provide much reliable hx he has been on HD x 1 year ROS: feels better. Cardiovascular: No chest pain. Pulmonary: No shortness of breath Gastrointestinal: denies abdominal pain No nausea. No vomiting. no reports of fever Physical Examination: General Appearance: comfortable, in no acute respiratory distress, co-operative . Vitals reviewed and noted as below Head; Atraumatic, normocephalic ENT: no ulcers no thrush. Tongue is midline. Oropharynx: no rash or ulcers. EYES: Pupils are equal, round and reactive to light accommodation. Eye muscles and extraocular movement intact. Sclera is anicteric. Neck; supple no lymphadenopathy, no thyromegaly or bruit Lungs: Normal respiratory rate/effort. Breath sounds bilateral equal and clear anteriorly Heart: Improved rate. s1s2 normal. No rub or gallop. A fib Extremities: no edema. No varicose veins Neurological: Patient is awake alert follows commands, hx of dementia Skin: Warm and dry. Normal turgor. No rash. Palpitation: Normal elasticity for age Abdomen: Abdomen is soft. Bowel sounds +. There is no abdominal tenderness, no guarding/rigidity or organomegaly Psych: unable MSK: no joint tenderness or swelling. Digits and nails normal, no deformity, Rt hip surgery site looks clean. : kidney or bladder not palpable Access: left AVF Labs/imaging reviewed. Past medical history, past surgical history, family history, social history, allergy reviewed and noted as below Family Hx: no hx of CKD. Non contributory Objective - Vital Signs/Intake and Output Vital Signs (last 24 hours): Temp Pulse Resp BP Pulse Ox 97 F L 52 L 20 111/73 93 L 11/27/17 15:54 11/27/17 15:54 11/27/17 15:54 11/27/17 15:54 11/27/17 15:54 Intake and Output: 11/27/17 11/27/17 06:59 18:59 Intake Total 250 Balance 250 - Medications Medications: Current Medications Aspirin (Aspirin Chewable) 81 mg PO DAILY [facility] Last Admin: 11/27/17 10:32 Dose: 81 mg Clopidogrel Bisulfate (Plavix) 75 mg PO DAILY [facility] Last Admin: 11/27/17 10:32 Dose: 75 mg Docusate Sodium (Colace) 100 mg PO BID [facility] Last Admin: 11/27/17 10:33 Dose: 100 mg Donepezil HCl (Aricept) 5 mg PO HS [facility] Last Admin: 11/26/17 21:05 Dose: 5 mg Epoetin Ari (Procrit) 8,000 unit IV MWF [facility] Last Admin: 11/26/17 12:21 Dose: 8,000 unit Cefepime HCl 1 gm/ Dextrose 50 mls @ 100 mls/hr IVPB Q12H [facility] PRN Reason: Protocol Last Admin: 11/27/17 08:14 Dose: 100 mls/hr Vancomycin/Sodium Chloride (Vancomycin 1 Gm/Ns 200 Ml) 1 gm in 200 mls @ 167 mls/hr IVPB MWF [facility] PRN Reason: Protocol Stop: 12/01/17 09:01 Last Admin: 11/26/17 15:30 Dose: 167 mls/hr Insulin Aspart (Novolog) 0 unit SC ACHS [facility] PRN Reason: Protocol Last Admin: 11/27/17 12:05 Dose: 4 units Insulin Glargine (Lantus) 10 unit SC HS [facility] Last Admin: 11/26/17 21:10 Dose: 10 units Memantine (Namenda) 5 mg PO BID [facility] Last Admin: 11/27/17 10:32 Dose: 5 mg Metoprolol Succinate (Toprol Xl) 200 mg PO DAILY [facility] Last Admin: 11/27/17 10:32 Dose: 200 mg Mirtazapine (Remeron) 15 mg PO HS [facility] Last Admin: 11/26/17 21:05 Dose: 15 mg Rosuvastatin Calcium (Crestor) 5 mg PO HS [facility] Last Admin: 11/26/17 21:05 Dose: 5 mg Tobramycin Sulfate (Tobrex 0.3% Ophth Soln) 2 drop OS Q6H [facility] Last Admin: 11/27/17 12:29 Dose: 2 drop Valproate Sodium (Depakene Oral Soln) 500 mg PO Q12 [facility] Last Admin: 11/27/17 10:33 Dose: 500 mg Vitamin B Complex/Vit C/Folic Acid (Nephro-Jerson) 1 tab PO 0800 [facility] Last Admin: 11/27/17 08:14 Dose: 1 tab - Labs Labs: 11/26/17 07:14 11/26/17 07:14 PT 12.4 SECONDS (9.7-12.2) H 11/19/17 13:36 INR 1.1 11/19/17 13:36
--- NOTE | 2017-11-27 17:18 | ENDO ---
PROCEDURE DATE: 11/25/2017 Technical Information: Electrodes were placed according to the 10-20 International electrode system by ct technologist. Total of 23 electrodes (21 EEG and 2 EKG) were placed. EEG activity was digitally recorded referentially to P1/P2 or A1/A2 electrodes. Continuous monitoring with EEG was performed using digital analysis for spike detection. The [employer] spike and seizure detection algorithms were used for digital EEG analysis throughout the monitoring period to screen the EEG in real-time and jammie the data file with pointers to electrographic seizures and interictal discharges. EEG was screened for electrographic seizures and interictal discharges by a technologist. Physician, epileptologist reviewed detections as well as extensive random samples and whole EEG study in detail. Digital EEG Analysis: Was carried out including FFT (Fast Fourier Transform), R2D2 (Rhythmicity Run Detection and Display), Relative Asymmetry Spectrogram, and voltage plot by the [employer] Software. The qualitative EEG analysis and the voltage plot mapping were used for detection of foci of paroxysmal and abnormal electrical cortical activity. General Description: Background Rhythm: There is a well-formed, 8-10 Hz posterior dominant rhythm that is reactive, symmetric, and attenuates with eye opening. There was a normal amount of frontal beta noted bilaterally. There is no sleep recorded. Activation Procedures: Photic stimulation: There is no driving noted. Hyperventilation: There is slowing noted that is self-remitted. Abnormal Activity: There are no focal epileptiform discharges noted. No clinical or subclinical seizures noted. Impression: This is a normal awake and drowsy electroencephalogram. Clinical correlation is required. Charli Smith MD
[2017-11-27] MEDS: (Lantus) Insulin Glargine, Recombinant SC SCH (21:46)
--- NOTE | 2017-11-27 22:15 | CP.PCM.PN ---
Subjective - Date & Time of Evaluation Date of Evaluation: 11/27/17 Time of Evaluation: 17:40 - Subjective Subjective: pt clinically same consultants following Objective - Vital Signs/Intake and Output Vital Signs (last 24 hours): Temp Pulse Resp BP Pulse Ox 97 F L 52 L 20 111/73 93 L 11/27/17 15:54 11/27/17 15:54 11/27/17 15:54 11/27/17 15:54 11/27/17 15:54 Intake and Output: 11/27/17 11/28/17 18:59 06:59 Intake Total 250 Balance 250 - Medications Medications: Current Medications Aspirin (Aspirin Chewable) 81 mg PO DAILY [facility] Last Admin: 11/27/17 10:32 Dose: 81 mg Clopidogrel Bisulfate (Plavix) 75 mg PO DAILY [facility] Last Admin: 11/27/17 10:32 Dose: 75 mg Docusate Sodium (Colace) 100 mg PO BID [facility] Last Admin: 11/27/17 17:30 Dose: 100 mg Donepezil HCl (Aricept) 5 mg PO [facility] Last Admin: 11/27/17 21:27 Dose: 5 mg Epoetin Ari (Procrit) 8,000 unit [place] [facility] Last Admin: 11/26/17 12:21 Dose: 8,000 unit Cefepime HCl 1 gm/ Dextrose 50 mls @ 100 mls/hr IVPB Q12H [facility] PRN Reason: Protocol Last Admin: 11/27/17 21:00 Dose: 100 mls/hr Vancomycin/Sodium Chloride (Vancomycin 1 Gm/Ns 200 Ml) 1 gm in 200 mls @ 167 mls/hr [place]PB [facility] [place] Reason: Protocol Stop: 12/01/17 09:01 Last Admin: 11/26/17 15:30 Dose: 167 mls/hr Insulin Aspart (Novolog) [address] [facility] PRN Reason: Protocol Last Admin: 11/27/17 21:29 Dose: Not Given Insulin Glargine (Lantus) 10 unit SC [facility] Last Admin: 11/27/17 21:46 Dose: 10 units Memantine (Namenda) 5 mg PO BID [facility] Last Admin: 11/27/17 17:30 Dose: 5 mg Metoprolol Succinate (Toprol Xl) 200 mg PO DAILY [facility] Last Admin: 11/27/17 10:32 Dose: 200 mg Mirtazapine (Remeron) 15 mg PO HS [facility] Last Admin: 11/27/17 21:27 Dose: 15 mg Rosuvastatin Calcium (Crestor) 5 mg PO HS [facility] Last Admin: 11/27/17 21:27 Dose: 5 mg Tobramycin Sulfate (Tobrex 0.3% Ophth Soln) 2 drop OS Q6H [facility] Last Admin: 11/27/17 19:30 Dose: 2 drop Valproate Sodium (Depakene Oral Soln) 500 mg PO Q12 [facility] Last Admin: 11/27/17 21:30 Dose: 500 mg Vitamin B Complex/Vit C/Folic Acid (Nephro-Jerson) 1 tab PO 0800 [facility] Last Admin: 11/27/17 08:14 Dose: 1 tab - Labs Labs: 11/26/17 07:14 11/26/17 07:14 PT 12.4 SECONDS (9.7-12.2) H 11/19/17 13:36 INR 1.1 11/19/17 13:36 - Constitutional Appears: No Acute Distress - Head Exam Head Exam: ATRAUMATIC, NORMAL INSPECTION, NORMOCEPHALIC - Eye Exam Eye Exam: EOMI, Normal appearance, PERRL Pupil Exam: NORMAL ACCOMODATION, PERRL - ENT Exam ENT Exam: Mucous Membranes Moist - Neck Exam Neck Exam: Full ROM - Respiratory Exam Respiratory Exam: Decreased Breath Sounds - Cardiovascular Exam Cardiovascular Exam: REGULAR RHYTHM, +S1, +S2 - GI/Abdominal Exam GI & Abdominal Exam: Soft, Diminished Bowel Sounds - Rectal Exam Rectal Exam: Deferred - Neurological Exam Additional comments: [employer]GER same Assessment and Plan (1) Altered mental status Status: Acute (2) Atrial fibrillation Status: Acute (3) CHF exacerbation Status: Acute (4) ESRD (end stage renal disease) on dialysis Status: Acute (5) Encephalopathy Status: Acute (6) Pleural effusion Status: Acute (7) Acute blood loss anemia Status: Acute (8) Acute conjunctivitis, left eye Status: Acute (9) CAD (coronary artery disease) Status: Acute (10) Closed intertrochanteric fracture of right hip Status: Acute (11) Frequent falls Status: Acute (12) HTN (hypertension) Status: Acute (13) Hip fracture, right Status: Acute - Assessment and Plan (Free Text) Plan: R. Hip Fracture; resolved -PT/OT as per Dr. 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
[2017-11-28] MEDS: Tobramycin 0.3% OPHT SOLN OS SCH ×4 (01:30→13:27)
--- NOTE | 2017-11-28 07:34 | CP.PCM.PN ---
Subjective - Date & Time of Evaluation Date of Evaluation: 11/28/17 Time of Evaluation: 07:34 - Subjective Subjective: Mr. Jack was seen and examined at the bedside. He is awake, able to answer few questions, but has episode of confusion. He is much calmer today, able to follow some commands such as opening his mouth, raising his bilateral upper extremities and moving his bilateral toes. EEG showed no seizure activity and valproic level 50.1. There was no untoward events overnight. Objective - Vital Signs/Intake and Output Vital Signs (last 24 hours): Temp Pulse Resp BP Pulse Ox 98.8 F 105 H 20 134/61 96 11/27/17 23:15 11/27/17 23:15 11/27/17 23:15 11/27/17 23:15 11/27/17 23:15 - Medications Medications: Current Medications Aspirin (Aspirin Chewable) 81 mg PO DAILY [facility] Last Admin: 11/27/17 10:32 Dose: 81 mg Clopidogrel Bisulfate (Plavix) 75 mg PO DAILY [facility] Last Admin: 11/27/17 10:32 Dose: 75 mg Docusate Sodium (Colace) 100 mg PO BID [facility] Last Admin: 11/27/17 17:30 Dose: 100 mg Donepezil HCl (Aricept) 5 mg PO [facility] Last Admin: 11/27/17 21:27 Dose: 5 mg Epoetin Ari (Procrit) 8,000 unit IV MWF [facility] Last Admin: 11/26/17 12:21 Dose: 8,000 unit Cefepime HCl 1 gm/ Dextrose 50 mls @ 100 mls/hr IVPB Q12H [facility] PRN Reason: Protocol Last Admin: 11/27/17 21:00 Dose: 100 mls/hr Vancomycin/Sodium Chloride (Vancomycin 1 Gm/Ns 200 Ml) 1 gm in 200 mls @ 167 mls/hr IVPB MWF [facility] PRN Reason: Protocol Stop: 12/01/17 09:01 Last Admin: 11/26/17 15:30 Dose: 167 mls/hr Insulin Aspart (Novolog) 0 unit SC ACHS [facility] PRN Reason: Protocol Last Admin: 11/27/17 21:29 Dose: Not Given Insulin Glargine (Lantus) 10 unit SC [facility] Last Admin: 11/27/17 21:46 Dose: 10 units Memantine (Namenda) 5 mg PO BID [facility] Last Admin: 11/27/17 17:30 Dose: 5 mg Metoprolol Succinate (Toprol Xl) 200 mg PO DAILY [facility] Last Admin: 11/27/17 10:32 Dose: 200 mg Mirtazapine (Remeron) 15 mg PO HS [facility] Last Admin: 11/27/17 21:27 Dose: 15 mg Rosuvastatin Calcium (Crestor) 5 mg PO HS [facility] Last Admin: 11/27/17 21:27 Dose: 5 mg Tobramycin Sulfate (Tobrex 0.3% Ophth Soln) 2 drop OS Q6H [facility] Last Admin: 11/28/17 06:17 Dose: 2 drop Valproate Sodium (Depakene Oral Soln) 500 mg PO Q12 [facility] Last Admin: 11/27/17 21:30 Dose: 500 mg Vitamin B Complex/Vit C/Folic Acid (Nephro-Jerson) 1 tab PO 0800 [facility] Last Admin: 11/27/17 08:14 Dose: 1 tab - Labs Labs: 11/26/17 07:14 11/26/17 07:14 PT 12.4 SECONDS (9.7-12.2) H 11/19/17 13:36 INR 1.1 11/19/17 13:36 - Constitutional Appears: No Acute Distress - Head Exam Head Exam: NORMAL INSPECTION - Eye Exam Pupil Exam: PERRL - Neurological Exam Neurological Exam: Awake Neuro motor strength exam: Left Upper Extremity: 3, Right Upper Extremity: 3, Left Lower Extremity: 2/1, Right Lower Extremity: 2/1 Additional comments: neurological unchhanged from previous examination. Assessment and Plan (1) Encephalopathy Assessment & Plan: Case discussed with Dr. Swanson, continue all current medical regimen. Recommend encourage increase PO intake, treat any electrolyte abnormalities and treat any underlying infection. Status: Acute
[2017-11-28] MEDS: (Novolog) Insulin Aspart, Recombinant 100 u/ml 10 ml vial SC SCH ×2 (08:30→13:06)
[2017-11-28] MEDS: Multivitamin Vitamin B Complex (Nephro-Vite) Tab PO SCH (08:30)
[2017-11-28] MEDS: Vancomycin 1 gm/NS 200 ml 1 GM/200 ML BAG IVPB SCH (10:50)
[2017-11-28 11:32] VITALS: TEMP 97.3
[2017-11-28] MEDS: EPOETIN ALFA 4,000 UNIT/ML ML Dialysis IV SCH (11:45)
--- NOTE | 2017-11-28 12:37 | CP.PCM.PN ---
Subjective - Date & Time of Evaluation Date of Evaluation: 11/28/17 Time of Evaluation: 12:36 - Subjective Subjective: Nephrology Consultation Note: Assessment: Stable Hypoxic respi failure with pulm congestion/effusions AMS ? cause: improved A fib with RVR Diabetic chronic Kidney Disease (E11.22) Hypertensive Chronic Kidney Disease (I12.0) End stage renal disease (N18.6) dependence on hemodialysis (Z99.2) (MWF) via AVF Anemia (D64.9), Hyperphosphatemia (E83.39), Secondary Hyperparathyroidism (E21.1 ), HTN (I12.0) Plan: HD today as ordered per MWF schedules. Continue with Nephrovite 1 tab/day. PRBC as needed for anemia. On JOSE CARLOS as epogen with HD, last Hb 10.8 Continue with phos binders home dose, check phos level BP control with meds as ordered. Patient not on RAAS brianne as BP tends to be low side Glycemic control, Dialysis consistent diet Further work up/management as per primary team Dose meds/antibiotics for ESRD status. Avoid fleets enema/magnesium based laxatives. Neuro cardiology ID evaluation appreciated Thanks for allowing me to participate in care of your patient. Will follow patient with you. Please call if any Qs. had d/w family and team Dr Dylan Escalona Office: [phone] HPI: Pt is a 77 M with hx of ESRD on hemodialysis (MWF) via left AVF @ [facility] with Dr Yin/Dr Antoine, last dialysis today but half-way, chronic anemia, hyperphosphatemia, secondary hyperparathyroidism, Diabetes Mellitus, hypertension, memory impairment/dementia, recent hospitalization for fall and Rt hip fracture s/p surgery went to rehab presented with complaints of change in mental status from HD unit today/ he was also noted to have low O2 sats pt awake but confused and unable to provide much reliable hx he has been on HD x 1 year ROS: feels same. Cardiovascular: No chest pain. Pulmonary: No shortness of breath Gastrointestinal: denies abdominal pain No nausea. No vomiting. limited hx from pt Physical Examination: seen on HD General Appearance: comfortable, in no acute respiratory distress, co-operative . Vitals reviewed and noted as below Head; Atraumatic, normocephalic ENT: no ulcers no thrush. Tongue is midline. Oropharynx: no rash or ulcers. EYES: Pupils are equal, round and reactive to light accommodation. Eye muscles and extraocular movement intact. Sclera is anicteric. Neck; supple no lymphadenopathy, no thyromegaly or bruit Lungs: Normal respiratory rate/effort. Breath sounds bilateral equal and clear anteriorly Heart: Improved rate. s1s2 normal. No rub or gallop. A fib Extremities: no edema. No varicose veins Neurological: Patient is awake alert follows commands, hx of dementia Skin: Warm and dry. Normal turgor. No rash. Palpitation: Normal elasticity for age Abdomen: Abdomen is soft. Bowel sounds +. There is no abdominal tenderness, no guarding/rigidity or organomegaly Psych: unable MSK: no joint tenderness or swelling. Digits and nails normal, no deformity, Rt hip surgery site looks clean. : kidney or bladder not palpable Access: left AVF Labs/imaging reviewed. Past medical history, past surgical history, family history, social history, allergy reviewed and noted as below Family Hx: no hx of CKD. Non contributory Objective - Vital Signs/Intake and Output Vital Signs (last 24 hours): Temp Pulse Resp BP Pulse Ox 97.3 F L 56 L 16 111/63 98 11/28/17 09:30 11/28/17 11:30 11/28/17 11:30 11/28/17 11:30 11/28/17 11:30 - Medications Medications: Current Medications Aspirin (Aspirin Chewable) 81 mg PO DAILY [facility] Last Admin: 11/27/17 10:32 Dose: 81 mg Clopidogrel Bisulfate (Plavix) 75 mg PO DAILY [facility] Last Admin: 11/27/17 10:32 Dose: 75 mg Docusate Sodium (Colace) 100 mg PO BID [facility] Last Admin: 11/27/17 17:30 Dose: 100 mg Donepezil HCl (Aricept) 5 mg PO HS [facility] Last Admin: 11/27/17 21:27 Dose: 5 mg Epoetin Ari (Procrit) 8,000 unit IV MWF [facility] Last Admin: 11/28/17 11:45 Dose: 8,000 unit Cefepime HCl 1 gm/ Dextrose 50 mls @ 100 mls/hr IVPB Q12H [facility] PRN Reason: Protocol Last Admin: 11/28/17 08:31 Dose: 100 mls/hr Vancomycin/Sodium Chloride (Vancomycin 1 Gm/Ns 200 Ml) 1 gm in 200 mls @ 167 mls/hr IVPB MWF [facility] PRN Reason: Protocol Stop: 12/01/17 09:01 Last Admin: 11/28/17 10:50 Dose: 167 mls/hr Insulin Aspart (Novolog) 0 unit SC ACHS [facility] PRN Reason: Protocol Last Admin: 11/28/17 08:30 Dose: 2 units Insulin Glargine (Lantus) 10 unit SC HS [facility] Last Admin: 11/27/17 21:46 Dose: 10 units Memantine (Namenda) 5 mg PO BID [facility] Last Admin: 11/27/17 17:30 Dose: 5 mg Metoprolol Succinate (Toprol Xl) 200 mg PO DAILY [facility] Last Admin: 11/27/17 10:32 Dose: 200 mg Mirtazapine (Remeron) 15 mg PO HS [facility] Last Admin: 11/27/17 21:27 Dose: 15 mg Rosuvastatin Calcium (Crestor) 5 mg PO HS [facility] Last Admin: 11/27/17 21:27 Dose: 5 mg Tobramycin Sulfate (Tobrex 0.3% Ophth Soln) 2 drop OS Q6H [facility] Last Admin: 11/28/17 06:17 Dose: 2 drop Valproate Sodium (Depakene Oral Soln) 500 mg PO Q12 [facility] Last Admin: 11/27/17 21:30 Dose: 500 mg Vitamin B Complex/Vit C/Folic Acid (Nephro-Jerson) 1 tab PO 0800 [facility] Last Admin: 11/28/17 08:30 Dose: 1 tab - Labs Labs: 11/26/17 07:14 11/26/17 07:14 PT 12.4 SECONDS (9.7-12.2) H 11/19/17 13:36 INR 1.1 11/19/17 13:36
[2017-11-28] MEDS: Metoprolol Succinate 100 mg XL Tab PO SCH (13:09)
[2017-11-28] MEDS: Valproic Acid 250 mg/5 ml UD Cup PO SCH (13:20)
--- NOTE | 2017-11-28 14:25 | CP.PCM.PN ---
Subjective - Date & Time of Evaluation Date of Evaluation: 11/28/17 Time of Evaluation: 14:25 - Subjective Subjective: PATIENT IS AWAKE/ABLE TO ANSWER SOME QUESTIONS/ PERIOD OF CONFUSION / BUT HE IS MUCH CALM TODAY ON ROOM AIR/ DENIES CHEST PAIN OR SOB NO SIGN OF DISTRESS NOTED Objective - Vital Signs/Intake and Output Vital Signs (last 24 hours): Temp Pulse Resp BP Pulse Ox 97.3 F L 58 L 15 95/57 L 99 11/28/17 09:30 11/28/17 13:00 11/28/17 13:00 11/28/17 13:00 11/28/17 13:00 - Medications Medications: Current Medications Aspirin (Aspirin Chewable) 81 mg PO DAILY [facility] Last Admin: 11/28/17 13:20 Dose: 81 mg Clopidogrel Bisulfate (Plavix) 75 mg PO DAILY [facility] Last Admin: 11/28/17 13:20 Dose: 75 mg Docusate Sodium (Colace) 100 mg PO BID [facility] Last Admin: 11/28/17 11:00 Dose: Not Given Donepezil HCl (Aricept) 5 mg PO [facility] Last Admin: 11/27/17 21:27 Dose: 5 mg Epoetin Ari (Procrit) 8,000 unit IV [facility] [place] Last Admin: 11/28/17 11:45 Dose: 8,000 unit Cefepime HCl 1 gm/ Dextrose 50 mls @ 100 mls/hr IVPB Q12H [facility] PRN Reason: Protocol Last Admin: 11/28/17 08:31 Dose: 100 mls/hr Vancomycin/Sodium Chloride (Vancomycin 1 Gm/Ns 200 Ml) 1 gm in 200 mls @ 167 mls/hr IVPB [facility] [place]N Reason: Protocol Stop: 12/01/17 09:01 Last Admin: 11/28/17 10:50 Dose: 167 mls/hr Insulin Aspart (Novolog) 0 unit SC ACHS [facility] PRN Reason: Protocol Last Admin: 11/28/17 13:06 Dose: Not Given Insulin Glargine (Lantus) 10 unit SC [facility] Last Admin: 11/27/17 21:46 Dose: 10 units Memantine (Namenda) 5 mg PO BID [facility] Last Admin: 11/28/17 13:20 Dose: 5 mg Metoprolol Succinate (Toprol Xl) 200 mg PO DAILY [facility] Last Admin: 11/28/17 13:09 Dose: Not Given Mirtazapine (Remeron) 15 mg PO HS [place] Last Admin: 11/27/17 21:27 Dose: 15 mg Rosuvastatin Calcium (Crestor) 5 mg PO HS [place] Last Admin: 11/27/17 21:27 Dose: 5 mg Tobramycin Sulfate (Tobrex 0.3% Ophth Soln) 2 drop OS Q6H [place] Last Admin: 11/28/17 13:27 Dose: Not Given Valproate Sodium (Depakene Oral Soln) 500 mg PO Q12 [place] Last Admin: 11/28/17 13:20 Dose: 500 mg Vitamin B Complex/Vit C/Folic Acid (Nephro-Jerson) 1 tab PO 0800 [facility] Last Admin: 11/28/17 08:30 Dose: 1 tab - Labs Labs: 11/26/17 07:14 11/26/17 07:14 PT 12.4 SECONDS (9.7-12.2) H 11/19/17 13:36 INR 1.1 11/19/17 13:36 Assessment and Plan - Assessment and Plan (Free Text) Assessment: PATIENT SEEN AND EXAMINED AT THE BEDSIDE EEG DONE SHOW NO SEIZURE ACTIVITY/ VALPROIC LEVEL IS 50.1 CT OF HEAD IS NORMAL [place] CULTURE WAS NEG/ AFEBRILE/ LACTATE WNL/ VITAL SIGN IS STABLE BRAIN MRI SHOW NO ACUTE INTRACRANIAL HEMORRHAGE RIGHT HIP INCISION/ S/P CLOSED REDUCTION/ XRAY DONE SHOW RIGHT HIP WITH SATISFACTORY ALIGNMENT DISCUSS WITH DR HUFFMAN WHO CLEAR FO DC ON ABX PLACE UNDER THE SERVICE FO DR London HUFFMAN AT THE [facility] --CALL FOR DR [place] HUFFMAN FOR ADMITTING ORDER CONTINUE ALL YOUR HOME MEDICATION NEW PRESCRIPTION MAXIPINE Q12H FOR 5 DAYS VANCO DAILY MWF X 3DOSE [facility] AND FACILITY PROTOCOL HEP LOCK CARE AND FACILITY PROTOCOL CALL DR HUFFMAN FOR FURTHER ORDER
[2017-11-28 15:55] VITALS: BP 114/74; PULSE 105; RESP 20; O2SAT 91
== END 2017-11-28 17:24 | DRG 291 ==
LOC: C.ER 12:12 → C.9E 15:38 → C.6T 16:24
PROVIDERS: ADMIT Internal Medicine Nephrology; ATTEND Internal Medicine Nephrology
PROC: 5A1D70Z Performance of Urinary Filtration, Intermittent, Less than 6 Hours Per Day (ICD-10-PCS; principal; 2017-11-19)
PROC: 5A1D70Z Performance of Urinary Filtration, Intermittent, Less than 6 Hours Per Day (ICD-10-PCS; 2017-11-21)
PROC: 5A1D70Z Performance of Urinary Filtration, Intermittent, Less than 6 Hours Per Day (ICD-10-PCS; 2017-11-24)
PROC: 5A1D70Z Performance of Urinary Filtration, Intermittent, Less than 6 Hours Per Day (ICD-10-PCS; 2017-11-26)
PROC: 5A1D70Z Performance of Urinary Filtration, Intermittent, Less than 6 Hours Per Day (ICD-10-PCS; 2017-11-28)
DX: I13.2 Hypertensive heart and chronic kidney disease with heart failure and with stage 5 chronic kidney disease, or end stage renal disease (principal); G93.40 Encephalopathy, unspecified; N18.6 End stage renal disease; J96.91 Respiratory failure, unspecified with hypoxia; N25.81 Secondary hyperparathyroidism of renal origin; D62 Acute posthemorrhagic anemia; I25.10 Atherosclerotic heart disease of native coronary artery without angina pectoris; I25.2 Old myocardial infarction; I48.91 Unspecified atrial fibrillation; H10.32 Unspecified acute conjunctivitis, left eye; I50.9 Heart failure, unspecified; G30.9 Alzheimer's disease, unspecified; F02.80 Dementia in other diseases classified elsewhere, unspecified severity, without behavioral disturbance, psychotic disturbance, mood disturbance, and anxiety; R29.6 Repeated falls; Z66 Do not resuscitate; Z79.4 Long term (current) use of insulin; Z86.73 Personal history of transient ischemic attack (TIA), and cerebral infarction without residual deficits; Z99.2 Dependence on renal dialysis; F17.210 Nicotine dependence, cigarettes, uncomplicated; E87.5 Hyperkalemia; E11.65 Type 2 diabetes mellitus with hyperglycemia; E11.22 Type 2 diabetes mellitus with diabetic chronic kidney disease